=== PATIENT | female | born 1975 | race Caucasian/White ===

== ENCOUNTER 2020-06-23 14:01 | Outpatient (CLI) | payer BC, SELFPAY ==
--- NOTE | ~2020-06-23 | DEXA_ITS ---
Bone Density Report Name: Christiane Landis Age: 45 Sex: Female Ethnicity: White Date of : 1975 Indication: postmenopausal; cancer; hysterectomy; Referring Provider: Issa Baird Study: Bone densitometry was performed. Exam Date: June 23, 2020 Accession number: [id number] Bone Density: Region BMD T-score Z-score Classification AP Spine (L1-L4) 1.039 -0.1 0.4 Normal Femoral Neck (Left) 0.752 -0.9 -0.4 Normal Total Hip (Left) 0.922 -0.2 0.1 Normal Total Hip Bilateral Avg 0.932 -0.1 0.2 Normal Femoral Neck (Right) 0.806 -0.4 0.0 Normal Total Hip (Right) 0.942 0.0 0.3 Normal World Health Organization criteria for BMD impression classify patients as: Normal (T-score at or above -1.0), Osteopenia (T-score between -1.0 and -2.5), or Osteoporosis (T-score at or below -2.5). 10-year Fracture Risk: FRAX not reported because: All T-scores for Spine Total, Hip Total, Femoral Neck at or above -1.0 Clinical Information Provided by Patient: Has used the following medications: Prolia (i.e. denosumab), Vitamin D, Calcium Has the following medical conditions: Cancer, Hysterectomy Patient maximum height was 66 Menopause Age: 43 No regular weight bearing exercise Onset of menses at age 12 Number of children 2 Impression: The patient has normal bone mass. Discussion: BONE DENSITY IS ABOVE THE MINIMUM DESIRABLE LEVEL AT ALL SKELETAL SITES TESTED. This patient?s bone mineral density is above the minimum desirable level (T-score -1.0 or better) at all sites measured. The patient should follow a healthful lifestyle (good nutrition with adequate calcium and vitamin D, and appropriate weight-bearing exercise). Follow-Up: Consider repeating this study in 5 years or sooner if there is some new clinical indication. Reported by: ARI on 06/23/2020 2:31:00 PM. Reviewed, dictated and finalized at location [facility]
== END 2020-06-23 14:02 | disposition home or self-care (01) ==
PROVIDERS: PCP Family Medicine; Visit Provider Internal Medicine Hematology & Oncology
DX: M81.8 Other osteoporosis without current pathological fracture (principal); T38.6X5A Adverse effect of antigonadotrophins, antiestrogens, antiandrogens, not elsewhere classified, initial encounter
CPT/HCPCS: 77080

== ENCOUNTER 2022-08-02 08:05 | Outpatient (CLI) | payer BC, SELFPAY ==
--- NOTE | ~2022-08-02 | DEXA_ITS ---
Bone Density Report Name: PHILIP PIÑA Age: 47 Sex: Female Ethnicity: White Date of : 1975 Indication: monitoring treatment; height loss; cancer; hysterectomy; postmenopausal Referring Provider: CASANDRA MELGOZA Study: Bone densitometry was performed. Exam Date: August 02, 2022 Accession number: [id number] Bone Density: Region BMD T-score Z-score Classification AP Spine(L1-L4) 0.995 -0.5 0.1 Normal Femoral Neck (Left) 0.782 -0.6 0.0 Normal Total Hip (Left) 0.932 -0.1 0.3 Normal Femoral Neck (Right) 0.813 -0.3 0.2 Normal Total Hip (Right) 0.940 0.0 0.4 Normal Total Hip Mean 0.936 -0.1 0.4 Normal World Health Organization criteria for BMD impression classify patients as: Normal (T-score at or above -1.0), Osteopenia (T-score between -1.0 and -2.5), or Osteoporosis (T-score at or below -2.5). 10-year Fracture Risk: FRAX not reported because: All T-scores for Spine Total, Hip Total, Femoral Neck at or above -1.0 Treated for osteoporosis Previous Exams: Region Exam Age BMD T-score BMD Change BMD Change Date g/cm2 vs Baseline vs Previous AP Spine (L1-L4) 08/02/2022 47 0.995 -0.5 -0.044 (-4.3%) -0.044 (-4.3%) 06/23/2020 45 1.039 -0.1 Total Hip(Left) 08/02/2022 47 0.932 -0.1 0.010 (1.1%)# 0.010 (1.1%)# 06/23/2020 45 0.922 -0.2 Total Hip(Right) 08/02/2022 47 0.940 0.0 -0.002 (-0.2%) -0.002 (-0.2%) 06/23/2020 45 0.942 0.0 *Denotes significance at 95% confidence level, LSC for AP Spine = 0.022 g/cm2, LSC for Total Hip = 0.027 g/cm2 # Denotes dissimilar scan types or analysis methods Clinical Information Provided by Patient: Is being treated for osteoporosis Has used the following medications: Prolia (i.e. denosumab), Vitamin D, Calcium Has the following medical conditions: Cancer, Hysterectomy Patient maximum height was 67 Menopause Age: 43 No regular weight bearing exercise Onset of menses at age 12 Number of children 2 Impression: The patient has normal bone mass. No significant bone loss was observed. Discussion: PATIENT UNDER TREATMENT WITH NO SIGNIFICANT BMD LOSS SINCE LAST EXAM. In an untreated patient, BMD typically declines with age. A lack of decline or gain is usually a sign that treatment is efficacious and fracture risk is reduced. It is important to ask patients whether they are taking their medications and to encourage continued and appropriate compliance with their osteoporosis ther
== END 2022-08-02 08:06 | disposition home or self-care (01) ==
PROVIDERS: PCP Family Medicine; Visit Provider Internal Medicine Hematology & Oncology
DX: M81.8 Other osteoporosis without current pathological fracture (principal); T36.8X5A Adverse effect of other systemic antibiotics, initial encounter
CPT/HCPCS: 77080

== ENCOUNTER 2023-11-05 18:22 | Emergency (ER) | payer BC, SELFPAY ==
[2023-11-05 18:29] VITALS: BP 119/75; PULSE 92; RESP 16; TEMP 36.6; O2SAT 97
--- NOTE | 2023-11-05 18:38 | ED.BACK ---
HPI - Back Pain/Injury General Chief Complaint: Back Pain/Injury Stated Complaint: Back Pain Time Seen by Provider: 11/05/23 18:22 Source: patient Mode of arrival: ambulatory Limitations: no limitations History of Present Illness HPI Narrative: 48-year-old female presents to [facility] with complaints of pain to her left mid back for the past 3 weeks. Patient reports the pain started to her right midback and she was evaluated by her primary care provider at that time. Patient reports that she was prescribed diclofenac but decided not to take the medicine and continued [id number] Motrin and apply cool compress. Patient reports that they did travel to the from 10/03-10/16 and a large amount of walking at that time. Patient denies urinary symptoms, bowel or bladder problems, numbness or tingling. Patient reports the pain is worse with movements. Patient denies fever, body aches, chills, nausea vomiting or diarrhea. Patient denies recent injury. MD elicited complaint: back pain Pertinent past history: prior back pain Onset (ago): week(s) (3) Similar Symptoms Previously: Yes Exacerbating factors: movement Relieving factors: walking Associated symptoms: denies other symptoms Treatments prior to arrival: cold therapy and NSAIDS Related Data Home Medications Medication Instructions Recorded Confirmed calcium carbonate (Calcium 600) See Rx Instructions .Route .COMPLEX 11/22/19 08/30/23 cholecalciferol (vit D3) 137.5 mcg See Rx Instructions .Route .COMPLEX 11/22/19 08/30/23 (5,500 unit)-vit K2 200 mcg tablet Allergies Allergy/AdvReac Type Severity Reaction Status Date / Time No Known Allergies Allergy Mild Verified 08/30/23 11:22 Review of Systems Constitutional: Constitutional: Denies chills, Denies fatigue, Denies fever(s) and Denies weakness ENT: Denies dizziness, Denies epistaxis and Denies nasal congestion Cardiovascular: Cardiovascular: Denies chest pain Respiratory: Respiratory: Denies cough, Denies dyspnea and Denies wheezing Gastrointestinal: Gastrointestinal: Denies diarrhea, Denies nausea and Denies vomiting Musculoskeletal: Musculoskeletal: Denies arthralgias, Denies joint swelling and Denies muscle cramps Comments: Left midback pain PMFSH Surgical History Surgical History History of bilateral mastectomy May 2013 History of breast reconstruction August 2014. Revisions February 2015, February 2017 and February 2018. History of hysterectomy December 2016 Social History Social History Smoking status: Never smoker Alcohol intake: current Substance use: never Substance use type: does not use Do You Feel Safe in your Home?: Yes Lack of Transportation: No Lack of Food: Never True Current Housing: I Have Housing Concerned About Future Housing: No Difficulty Paying Gas/Electric Bills: No Difficulty Paying for Meds: No Currently Unemployed: No Education: Bachelor's Degree Difficulty w/ Childcare or Family Care: No Living arrangements: with family Occupation/Education: occupation Gender identity (if verbalized by the patient): Female Sexual Orientation (if Verbalized by the Patient): Straight or Heterosexual Spiritual care concerns: No Comments At time of signature, I agree with nursing past medical, surgical, social and family history. There is no relevant family history pertinent to the presenting complaint. Exam Const: General: healthy appearing and no acute distress Nutritional Appearance: well nourished Orientation/consciousness: patient oriented x3 Limitations: no limitations HENMT: Head: normal to inspection Eyes: Conjunctivae: conjunctivae normal Neck: Neck: normal visual inspection Resp: Effort & Inspection: normal respiratory effort and not labored Auscultation: clear to auscultation bilaterally, no crackles, no rales, no r
== END 2023-11-05 18:47 | disposition home or self-care (01) ==
PROVIDERS: Emergency Provider Nurse Practitioner Family; PCP Family Medicine
DX: M54.6 Pain in thoracic spine (principal); Z90.13 Acquired absence of bilateral breasts and nipples
CPT/HCPCS: 99213; G0463

== ENCOUNTER 2023-11-24 07:35 | Outpatient (CLI) | payer BC, SELFPAY ==
--- NOTE | ~2023-11-24 | XR_ITS ---
XR chest 2V 11/24/2023 07:53 Indication: Left-sided chest and rib pain Procedure: 2 view chest Comparison: No prior studies for comparison. Findings: Large right pleural effusion. There are surgical changes in the right lung base with possib le cavitation in the right lung base. No mediastinal shift. Status post left axillary lymph node diss ection. There are changes of surgery in the left breast. Impression: 1: Large right pleural effusion. Right basilar consolidation may represent atelectasis or pneumonia w ith possible cavitation anteriorly. Recommend correlation with CT. Reviewed, dictated and finalized at location B. Impression: 1: Large right pleural effusion. Right basilar consolidation may represent atel ectasis or pneumonia with possible cavitation anteriorly. Recommend correlation with CT.
--- NOTE | ~2023-11-24 | XR_ITS ---
XR ribs LT 2V Ordering provider: Jhony Robledo MD History: . R07.81 - Pleurodynia . Comparison: None. FINDINGS: BONES: No acute left rib fracture or fracture of the visualized osseous structures. LEFT LUNG: No pneumothorax. Opacification in the right lung base with atelectasis versus pneumonia. R ight effusions also possible. SOFT TISSUES: Normal. Postoperative changes in the axilla and mediastinum. IMPRESSION: No left rib fracture. Reviewed, dictated and finalized at location A. IMPRESSION: No left rib fracture.
== END 2023-11-24 07:36 | disposition home or self-care (01) ==
PROVIDERS: PCP Family Medicine; Visit Provider Family Medicine
DX: R07.81 Pleurodynia (principal); R06.09 Other forms of dyspnea; J90 Pleural effusion, not elsewhere classified
CPT/HCPCS: 71046; 71100

== ENCOUNTER 2023-11-30 07:33 | Outpatient (CLI) | payer BC, SELFPAY ==
[2023-11-27 15:34] VITALS: BMI 26.6
--- NOTE | 2023-11-27 15:34 | PC.NURSE ---
Pre Radiology instructions Report to the outpatient zoila melton on date _[id number]_ at time _0730_ for procedure Time: _929_ YOU MAY BE MONITORED AT HOSPITAL FOR UP TO 4 HOURS AFTER YOUR PROCEDURE. A visitor will be allowed to accompany the patient into the hospital. You and your visitor will be asked to self-screen and do not enter if you have any COVID symptoms. A mask is OPTIONAL within the hospital. Patients are to have no food or drink 6 hours prior to procedure time Driving will be restricted after the procedure, you must have a person to drive you home. Labs will be drawn in preop area and once reviewed, you will be taken to radiology area for procedure. When the procedure is completed, you will be taken to outpatient where you will be monitored for several hours. You may have one visitor in this area. Other than holding anti-coagulants, patient may take other medication(s) as scheduled. Prior to your appointment date patients are instructed to hold anti-coagulants after discussing with ordering provider to stop. If unable to discontinue anti-coagulants please notify radiologist. ? No aspirin or warfarin (Coumadin) for 7 days prior to the procedure. ? No clopidogrel (Plavix), ticagrelor (Brilinta), prasugrel (Effient) or dabigatran (Pradaxa) for 5 days prior to the procedure. ? No rivaroxaban (Xarelto), apixaban (Eliquis), dipyridamole (Aggrenox or Persantine) or cilostazol (Pletal) for 2 days prior to the procedure. Medications to discontinue per physician: Date to take last dose: Please leave all valuables, including medications, at home the day of procedure. The hospital will not accept responsibility for valuables. Wear comfortable, loose fitting clothing.? Follow any additional instructions given to you from ordering provider. Telephone instructions given to __Megan___and asked if any additional questions and then verbalized understanding. Patient advised to call scheduling provider office or registration scheduling [phone] if any additional questions.
[2023-11-30] VITALS (11 sets, daily range): BP systolic 114–127; BP diastolic 65–79; PULSE 67–93; RESP 16–20; TEMP 36.2; O2SAT 97–100
--- NOTE | ~2023-11-30 | US_ITS ---
EXAMINATION: US thoracentesis DATE: 11/30/2023 10:29 INDICATION: pleural effusion TECHNIQUE: The procedure and its risks and benefits were discussed with the patient. Potential risks discussed included bleeding, infection, and pneumothorax. The patient understood the risks and agreed to proceed. The skin was prepped and draped in sterile fashion. 1% lidocaine was used for local anes thesia. Under ultrasound guidance, a 5 Fr catheter with trochar was advanced into the right pleural e ffusion. Fluid was aspirated. The catheter was removed, and a dressing was applied. There were no imm ediate complications. FINDINGS: Ultrasound images demonstrate a large right pleural effusion and the catheter within the fluid. IMPRESSION: 1. Successful ultrasound-guided thoracentesis yielding 1100 mL of yellow fluid. Reviewed, dictated and finalized at location A. IMPRESSION: 1. Successful ultrasound-guided thoracentesis yielding 1100 mL of yellow fluid .
--- NOTE | ~2023-11-30 | XR_ITS ---
[id number] Ordering provider: Onel Cummings MD History: 48 years Female with . POST RT THORA . Comparison: None. FINDINGS: MEDIASTINUM: The cardiac silhouette is not enlarged. LUNGS: No pneumothorax. Opacification the right lung base seen suggestive of atelectasis versus pneum onia with pleural effusion. Follow-up to resolution is advised. OTHER: Degenerative changes of the spine. No free air under the diaphragm. IMPRESSION: Right basal pneumonia versus atelectasis with moderate to large pleural effusion. Reviewed, dictated and finalized at location A. IMPRESSION: Right basal pneumonia versus atelectasis with moderate to large pleural effusio n.
[2023-11-30 08:49] LABS: INR 1.1; Prothrombin Time 14.1 Seconds (11.1-14.7)
[2023-11-30 08:58] LABS: Mean Platelet Volume 11.1 fl (7.4-10.4); Platelet Count Result 305 k/mm3 (150-375)
[2023-11-30 10:57] LABS: Appearance Pleural Fluid Clear (Clear); Color Pleural Fluid Yellow (Colorless); Lymphocytes Pleural Fluid 57 %; Neutrophils Pleural Fluid 1 % (0-25); Nucleated Cell Pleural Fluid 990 /uL (0-1000); Pleural fluid source Pleural fluid
[2023-11-30 10:59] LABS: Macrophages Pleural Fluid 28 %; Monocytes Pleural Fluid 13 %; Other Cells Pleural Fluid 1 %
--- NOTE | 2023-11-30 12:30 | SUR.PHASEII ---
This RN contacted Dr. Cummings at 1215 and told him that patient vitals are stable with no pain or shortness of breath. Per Dr. Cummings okay to d/c patient at this time.
[2023-12-01 09:29] LABS: RBC Pleural Fluid < 2000 /uL (0-10000)
[2023-12-08 05:52] LABS: Glucose Pleural Fluid 91 mg/dL; LDH Pleural Fluid 411 U/L; Total Protein Pleural Fluid 4.8 g/dL
== END 2023-11-30 12:29 | disposition home or self-care (01) ==
PROVIDERS: PCP Family Medicine; Visit Provider Radiology Diagnostic Radiology
DX: J90 Pleural effusion, not elsewhere classified (principal)
CPT/HCPCS: 32555; 36415; 82945; 83615; 83986; 84157; 85049; 85610; 87070; 87075; 87205; 88108; 88305; 89051

== ENCOUNTER 2023-12-08 16:35 | Outpatient (CLI) | payer BC, SELFPAY ==
--- NOTE | ~2023-12-08 | XR_ITS ---
EXAMINATION: XR chest 2V DATE: 12/08/2023 16:44 INDICATION: Pleural effusion TECHNIQUE: PA and lateral views of the chest were obtained. COMPARISON: Chest radiograph dated 11/30/2023 FINDINGS: Increasing now moderate-sized right pleural effusion. No change in the remaining airspace opacities i n the right mid and lower lung which could represent associated atelectasis and/or pneumonia. Left franny ng remains clear. No pulmonary edema, pneumothorax or left-sided pleural effusion. Heart size is norm al. Postoperative with multiple surgical clips at the anterior chest and at the left axilla. IMPRESSION: 1. Increasing unilateral moderate sized right pleural effusion with associated atelectasis. Underlyin g pneumonia or malignancy is not excludable. Reviewed, dictated and finalized at location A. IMPRESSION: 1. Increasing unilateral moderate sized right pleural effusion with associated atelectasis. Underlying pneumonia or malignancy is not excludable.
== END 2023-12-08 16:36 ==
PROVIDERS: PCP Family Medicine; Visit Provider Family Medicine
DX: J90 Pleural effusion, not elsewhere classified (principal)
CPT/HCPCS: 71046

== ENCOUNTER 2023-12-12 08:43 | Outpatient (CLI) | payer BC, SELFPAY ==
--- NOTE | 2023-12-12 08:54 | ECHO_ITS ---
Patient Info Name: Christiane Landis Age: 48 years : 1975 Gender: Female Ht: 66 in Wt: 160 lbs BSA: 1.85 m2 HR: 80 bpm BP: 133 / 84 mmHg Heart Rhythm: Sinus Rhythm Technical Quality: Good Exam Date: 12/12/2023 9:19 AM Exam Location: Echo Lab Patient Status: Outpatient Admit Date: 12/12/2023 Staff Ordering Physician: Jhony Robledo MD Pharmaceutical Laboratory Technician: Ursula Leger RDCS Attending Provider: Jhony Robledo MD Referring Physician: Venkat ALCANTARA; Exam Type: CA echo doppler color flow Study Info Indications - other forms of dyspnea Complete two-dimensional, color flow and Doppler transthoracic echocardiogram is performed. Summary 1. Complete two-dimensional, color flow and Doppler transthoracic echocardiogram is performed. 2. Left ventricular chamber dimension is normal. 3. Left ventricular systolic function is normal, estimated at 60-65%. 4. The left ventricular diastolic function is normal. 5. E/e' 6 is not elevated. 6. There is trace mitral valve regurgitation. 7. No pulmonary hypertension, estimated pulmonary arterial systolic pressure is 15 mmHg. 8. There is trace pulmonic regurgitation. Left Ventricle E/e' 6 is not elevated. Left ventricular chamber dimension is normal. Left ventricular systolic function is normal, estimated at 60-65%. The left ventricular diastolic function is normal. Right Ventricle Right ventricular systolic function is normal and with normal TAPSE 2.4 cm. Right ventricular chamber dimension is normal. Left Atria Left atrial chamber dimension is normal. Right Atria Right atrial chamber dimension is normal. Aortic Valve The aortic valve is trileaflet. There is no aortic valve stenosis. There is no aortic valve regurgitation. Pulmonic Valve There is trace pulmonic regurgitation. Mitral Valve There is no mitral valve stenosis. There is trace mitral valve regurgitation. Tricuspid Valve There is no tricuspid valve regurgitation. No pulmonary hypertension, estimated pulmonary arterial systolic pressure is 15 mmHg. Pericardium/Pleural There is no pericardial effusion. Inferior Vena Cava Normal inferior vena cava with >50% collapse upon inspiration consistent with normal right atrial pressure, 5 mmHg. Aorta The aortic root size at the sinus of Valsalva is normal. Left Ventricular Outflow Tract Name Value Normal LVOT 2D LVOT Diameter 1.9 cm LVOT Doppler LVOT Peak Gradient 3 mmHg LVOT Mean Gradient 1 mmHg LVOT VTI 20 cm LVOT VTI/AV VTI Ratio 0.8 LVOT Stroke Volume 55 ml LVOT CO 3.5 l/min LVOT CI 1.9 l/min/m2 Pulmonic Valve Name Value Normal PV Doppler PV Peak Gradient 6 mmHg Mitral Valve Name
== END 2023-12-12 08:44 | disposition home or self-care (01) ==
LOC: ANHCARD 08:45
PROVIDERS: PCP Family Medicine; Visit Provider Family Medicine
DX: R06.09 Other forms of dyspnea (principal)
CPT/HCPCS: 93306

== ENCOUNTER → 2023-12-12 10:44 | Outpatient (REF) | payer BC, SELFPAY | LOC: ANHLAB 10:44 | PROVIDERS: PCP Family Medicine; Visit Provider Family Medicine | DX: J90 Pleural effusion, not elsewhere classified (principal); Z85.3 Personal history of malignant neoplasm of breast | CPT/HCPCS: 88108; 88305; 88342 ==

== ENCOUNTER 2023-12-13 09:50 | Outpatient (CLI) | payer BC, SELFPAY ==
[2023-12-12 08:15] VITALS: BMI 25.8
--- NOTE | 2023-12-12 08:17 | PC.NURSE ---
Addendum entered by Brad Lyn RN 12/12/23 08:20: Date of proceedure is 12-13-2023. Original Note: Pre Radiology instructions Report to the Imaging department on date _[id number]_ at time _1000_ for procedure Time: 1030_ YOU MAY BE MONITORED AT HOSPITAL FOR UP TO 4 HOURS AFTER YOUR PROCEDURE. A visitor will be allowed to accompany the patient into the hospital. You and your visitor will be asked to self-screen and do not enter if you have any COVID symptoms. A mask is OPTIONAL within the hospital. Patients are to have no food or drink 6 hours prior to procedure time Driving will be restricted after the procedure, you must have a person to drive you home. When the procedure is completed, you will be taken to outpatient where you will be monitored for several hours. You may have one visitor in this area. Other than holding anti-coagulants, patient may take other medication(s) as scheduled. Prior to your appointment date patients are instructed to hold anti-coagulants after discussing with ordering provider to stop. If unable to discontinue anti-coagulants please notify radiologist. ? No aspirin or warfarin (Coumadin) for 7 days prior to the procedure. ? No clopidogrel (Plavix), ticagrelor (Brilinta), prasugrel (Effient) or dabigatran (Pradaxa) for 5 days prior to the procedure. ? No rivaroxaban (Xarelto), apixaban (Eliquis), dipyridamole (Aggrenox or Persantine) or cilostazol (Pletal) for 2 days prior to the procedure. Medications to discontinue per physician: Date to take last dose: Please leave all valuables, including medications, at home the day of procedure. The hospital will not accept responsibility for valuables. Wear comfortable, loose fitting clothing.? Follow any additional instructions given to you from ordering provider. Telephone instructions given to _Waynen__and asked if any additional questions and then verbalized understanding. Patient advised to call scheduling provider office or registration scheduling [phone] if any additional questions.
[2023-12-13] VITALS (7 sets, daily range): BP systolic 114–129; BP diastolic 61–78; PULSE 76–84; RESP 16–20; O2SAT 98–100
--- NOTE | ~2023-12-13 | US_ITS ---
EXAMINATION: US thoracentesis DATE: 12/13/2023 11:19 INDICATION: pleural effusion TECHNIQUE: The procedure and its risks, benefits, and alternatives were discussed with the patient. P otential risks discussed included bleeding, infection, and pneumothorax. The patient understood the r isks and agreed to proceed. The skin was prepped and draped in sterile fashion. 1% lidocaine was used for local anesthesia. Under ultrasound guidance, a 5 Fr catheter with trochar was advanced into the right pleural effusion. Fluid was aspirated. The catheter was removed, and a dressing was applied. Th ere were no immediate complications. FINDINGS: Ultrasound images demonstrate a right pleural effusion and the catheter within the fluid. IMPRESSION: 1. Successful ultrasound-guided thoracentesis yielding 1000 mL of jennifer-colored fluid. Reviewed, dictated and finalized at location A. IMPRESSION: 1. Successful ultrasound-guided thoracentesis yielding 1000 mL of jennifer-colore d fluid.
--- NOTE | ~2023-12-13 | CT_ITS ---
EXAMINATION:CT diagnostic chest w con DATE: 12/13/2023 11:22 INDICATION: Pleural effusion, not elsewhere classified. TECHNIQUE: Computed tomography (CT) of the chest was performed with 75 mL Omnipaque 350 intravenous c ontrast. Automated exposure control and iterative reconstruction technique were employed. The dose-le ngth product (DLP) was 136.20 mGy-cm. COMPARISON: None. FINDINGS: There is mild scarring at left lung apex. There is mild radiation fibrosis in anterior left lung. There is a small loculated right pleural effusion. There is nodular pleural thickening in righ t hemithorax. There is mild atelectasis in right lung. The heart size is normal. No pericardial effus ion. There are no pathologically enlarged lymph nodes. There is a 14 mm cyst in the liver. There is r etrocrural lymphadenopathy. There are surgical clips in the breasts and left axilla that may be maste ctomies with reconstructions. There is a healing pathologic fracture of left 11th rib. There is a lyt ic lesion of right seventh rib. There are lytic lesions in multiple levels of the spine, worst at T9 where there is epidural involvement and moderate central canal stenosis. IMPRESSION: 1. Small right pleural effusion with nodular pleural thickening, consistent with metastatic disease. 2. Bone lesions and retrocrural lymphadenopathy, consistent with metastatic disease. 3. Healing pathologic fracture of left 11th rib. Reviewed, dictated and finalized at location A. IMPRESSION: 1. Small right pleural effusion with nodular pleural thickening, consistent wit h metastatic disease. 2. Bone lesions and retrocrural lymphadenopathy, consistent with metastatic dis ease. 3. Healing pathologic fracture of left 11th rib.
== END 2023-12-13 13:18 | disposition home or self-care (01) ==
PROVIDERS: Radiology Diagnostic Radiology; PCP Family Medicine; Visit Provider Family Medicine
DX: J90 Pleural effusion, not elsewhere classified (principal); Z85.3 Personal history of malignant neoplasm of breast
CPT/HCPCS: 32555; 71260; Q9967

== ENCOUNTER 2023-12-14 15:32 | Outpatient (CLI) | payer BC, SELFPAY ==
[2023-12-14 15:46] LABS: Basophils Absolute Auto 0.1 K/mm3 (0.0-0.1); Basophils Percent Auto 1.2 % (0.2-1.2); Eosinophils Absolute Auto 0.1 K/mm3 (0-0.3); Eosinophils Percent Auto 0.9 % (0-4.4); Hematocrit 37.7 % (37.0-47.0); Hemoglobin 11.6 g/dL (12.0-15.0); Immature Granulocyte Absolute 0.01 K/mm3 (0.00-0.031); Immature Granulocyte Percent A 0.2 % (0-0.5); Lymphocytes Absolute Auto 1.17 K/mm3 (0.9-3.2); Lymphocytes Percent Auto 18.1 % (18.3-44.2); Mean Corpuscular HGB Conc 30.8 g/dl (32-36); Mean Corpuscular Hemoglobin 25.2 pg (26-34); Mean Platelet Volume 11.4 fl (7.4-10.4); Monocytes Absolute Auto 0.5 K/mm3 (0.1-0.6); Monocytes Percent Auto 8.4 % (2.6-8.5); Neutrophils Absolute Auto 4.6 K/mm3 (1.3-6.7); Neutrophils Percent Auto 71.2 % (45.5-73.1); Platelet Count Result 280 k/mm3 (150-375); Red Cell Distribution Width 14.3 % (11.5-14.5); White Blood Count 6.5 K/mm3 (4.5-10.0)
[2023-12-14 16:31] LABS: Alanine Aminotransferase 18 U/L (6-35); Albumin Level 4.4 g/dL (3.5-5.1); Alkaline Phosphatase 119 U/L (38-126); Anion Gap 11 mmol/L (4-12); Aspartate Amino Transferase 35 U/L (14-36); Bilirubin,Total 0.5 mg/dL (0.2-1.3); Blood Urea Nitrogen 16 mg/dL (7-17); Calcium 9.7 mg/dL (8.4-10.2); Carbon Dioxide 25 mmol/L (22-30); Chloride 102 mmol/L (98-107); Estimated Glomerular Filt Rate 59; Glucose 129 mg/dL (65-110); Potassium 4.7 mmol/L (3.4-5.0); Sodium 138 mmol/L (137-145)
[2023-12-15 13:57] LABS: CA 15-3 289 U/mL (<32)
== END 2023-12-14 15:33 | disposition home or self-care (01) ==
LOC: ANHLAB 15:33
PROVIDERS: PCP Family Medicine; Visit Provider Internal Medicine Hematology & Oncology
DX: Z85.3 Personal history of malignant neoplasm of breast (principal)
CPT/HCPCS: 36415; 80053; 85025; 86300

== ENCOUNTER 2023-12-19 11:05 | Outpatient (CLI) | payer BC, SELFPAY ==
[2023-12-19 11:17] LABS: Kit Draw Collected
== END 2023-12-19 11:06 | disposition home or self-care (01) ==
LOC: ANHLAB 11:06
PROVIDERS: PCP Family Medicine; Visit Provider Internal Medicine Hematology & Oncology
DX: C50.919 Malignant neoplasm of unspecified site of unspecified female breast (principal); Z17.0 Estrogen receptor positive status [ER+]
CPT/HCPCS: 36415

== ENCOUNTER 2023-12-20 08:41 | Outpatient (CLI) | payer BC, SELFPAY ==
--- NOTE | ~2023-12-20 | NM_ITS ---
EXAMINATION: NM bone scan whole body DATE: 12/20/2023 13:40 INDICATION: Right breast cancer TECHNIQUE: 25 mCi Tc-99m HDP was administered intravenously. Delayed whole-body scintigrams were obt ained. COMPARISON: Chest CT dated 12/13/2023 FINDINGS: There is increased uptake associated with lytic lesions and associated pathologic fractures at the an terior right fifth rib and the T9 vertebral body and without pathologic fracture at the posterolatera l right 11th rib, the right acromial process and at the spinous process of L1 consistent with metasta tic disease. Additional foci of abnormal uptake suspicious for metastatic disease which is not includ ed on the prior imaging at the right humeral diaphysis, intertrochanteric left femur, at L3 and at ginette th the left and right innominate bones of the pelvis. IMPRESSION: 1. Multiple foci of abnormal uptake consistent with scattered osseous metastatic disease. Reviewed, dictated and finalized at location A. IMPRESSION: 1. Multiple foci of abnormal uptake consistent with scattered osseous metastati c disease.
== END 2023-12-20 08:42 | disposition home or self-care (01) ==
PROVIDERS: PCP Family Medicine; Visit Provider Internal Medicine Hematology & Oncology
DX: C50.919 Malignant neoplasm of unspecified site of unspecified female breast (principal); Z17.0 Estrogen receptor positive status [ER+]
CPT/HCPCS: 78306; A9503

== ENCOUNTER 2023-12-21 09:20 | Outpatient (CLI) | payer BC, SELFPAY ==
--- NOTE | ~2023-12-21 | MR_ITS ---
MR brain/brain stem wo/w con Ordering provider: Issa Baird MD History: 48 years Female with . MAL POPPY OF BREAST IN FEMALE . Comparison: None. Technique: MRI brain was performed with and without contrast. 17 mL of MultiHance was given IV. FINDINGS: BONES: Normal. CRANIOCERVICAL JUNCTION: normal. PITUITARY: Normal. MAJOR INTRACRANIAL VESSELS: Normal flow void. OPTIC NERVES AND CRANIAL NERVES VII AND VIII COMPLEXES: Grossly normal. BRAIN PARENCHYMA AND CSF SPACES: No visible white matter disease. The brainstem and cerebellum are n ormal. No acute or chronic intracranial hemorrhage. No extra axial fluid collections. Diffusion weigh cesar and ADC mapping images reveal no recent ischemia. No midline shift or mass effect. No abnormal co ntrast enhancement. PARANASAL SINUSES: Normal. MASTOIDS: Normal SUPERFICIAL/SURROUNDING SOFT TISSUES: Normal. IMPRESSION: 1. No definite abnormality. No metastatic lesions 2. No abnormal enhancement. Reviewed, dictated and finalized at location A.
--- NOTE | ~2023-12-21 | PE_ITS ---
EXAMINATION: PET skull to mid thigh DATE: 12/21/2023 11:12 INDICATION: Breast cancer TECHNIQUE: Blood glucose level was 91 mg/dL. 9.925 mCi of 18-fluorodeoxyglucose (18-FDG) was administ ered i.v. Low dose computed tomography (CT) images were acquired from the base of the brain to the pr oximal thighs for attenuation correction and anatomic localization. Positron emission tomography (PET ) images were acquired in the same distribution beginning 54 minutes after injection. Images includin g fused PET/CT images were reconstructed in axial, coronal, and sagittal planes. Automated exposure c ontrol technique was employed. The dose-length product was 624.16mGy-cm. COMPARISON: Chest CT dated 12/13/2023 FINDINGS: Head/neck: There is symmetric increased activity in the oral cavity, palatine and lingual tonsils, laryngeal mus cles and ocular muscles without CT correlate, likely physiologic. No pathologically enlarged cervical lymphadenopathy or suspicious soft tissue foci of increased FDG uptake in the visualized head or nec k. Chest: Volume loss in the right lung with likely complex loculated small to moderate-sized right pleural eff usion. There is FDG avid nodular thickening of both the parietal and visceral pleura in the right hem ithorax including along the periphery of the right lung and along the fissures consistent with intrap leural metastatic disease. Could not exclude FDG avid right hilar lymphadenopathy although this more likely represent additional pleural-based disease. No other abnormally enlarged or FDG avid thoracic lymphadenopathy. There are no definitive non pleural-based pulmonary nodules to suggest intrapulmonar y metastatic disease. Left lung is clear with no pleural effusion. Heart size is normal. No pericardi al effusion. Thoracic aorta is normal in caliber. Abdomen/pelvis/proximal thighs: Physiologic renal accumulation and excretion of FDG activity in the kidneys, bladder and along portio ns of ureters. Normal degree and heterogenous pattern of increased uptake throughout the liver withou t radiologic correlate or dominant FDG avid lesion. The gallbladder, pancreas, spleen and bilateral a drenal glands are normal. Mild uptake scattered throughout the bowels without radiologic correlate, a lso likely physiologic. There is 1.5 cm FDG avid lymph node situated between the aorta and the right conrad of the diaphragm. No other abnormal foci of increased FDG uptake or other pathologically enlarge d lymphadenopathy in the abdomen, pelvis or proximal thighs. Musculoskeletal: There are numerous FDG avid bone lesions which are predominantly lytic on CT imaging scattered throug hout the axial and appendicular skeleton consistent with osseous metastatic disease. These include th e lesions identified on the recent prior bone scan as well as several additional smaller lesions. One of the most prominent occupies the majority of the T9 vertebral body. IMPRESSION: 1. Extensive osseous and right-sided pleural based metastatic disease. Equivocal for additional pleur al-based metastatic disease versus metastatic lymphadenopathy at the right hilum along the right late ral margin of the mediastinum. There is however definitive FDG avid right paraesophageal lymph node p osterior to the conrad of the diaphragm. Reviewed, dictated and finalized at location A. IMPRESSION: 1. Extensive osseous and right-sided pleural based metastatic disease. Equivoca l for additional pleural-based metastatic disease versus metastatic lymphadenop athy at the right hilum along the right lateral margin of the mediastinum. Ther e is however definitive FDG avid right paraesophageal lymph node posterior to t he conrad of the diaphragm.
[2023-12-21 10:04] LABS: Glucose Point of Care 91 mg/dl (65-105)
== END 2023-12-21 09:21 | disposition home or self-care (01) ==
LOC: ANHIMG 09:22
PROVIDERS: PCP Family Medicine; Visit Provider Internal Medicine Hematology & Oncology
DX: C50.919 Malignant neoplasm of unspecified site of unspecified female breast (principal); Z17.0 Estrogen receptor positive status [ER+]; R91.8 Other nonspecific abnormal finding of lung field
CPT/HCPCS: 70553; 78815; A9552; A9577

== ENCOUNTER 2024-01-16 08:03 | Outpatient (CLI) | payer BC, SELFPAY ==
[2024-01-16 08:58] LABS: Partial Thromboplastin Time 28.4 Seconds (22.3-36.8)
== END 2024-01-16 08:04 | disposition home or self-care (01) ==
LOC: ANHSURGERY 08:09
PROVIDERS: PCP Family Medicine; Visit Provider Surgery
DX: C79.51 Secondary malignant neoplasm of bone (principal); Z01.818 Encounter for other preprocedural examination
CPT/HCPCS: 36415; 85730

== ENCOUNTER 2024-01-18 02:05 | Day surgery (SDC) | payer BC, SELFPAY ==
[2024-01-12 11:17] VITALS: BMI 24.3
--- NOTE | 2024-01-12 11:18 | PC.NURSE ---
Report to the Outpatient Waiting Room, entrance under the green pavilion located off [facility], at time _1100_ on date _[phone]_. Planned Procedure Time: _1pm_.? Time changes happen often and if your time is changed the preop area will call you the afternoon before. - You and your visitor will be asked to self-screen and do not enter if you have any COVID symptoms. Please call surgeon if you need to reschedule. - A mask is optional within the hospital at this time. Patients may have clear liquids (water, carbonated beverages, clear teas, apple juice) until 3 hours prior to surgery with a maximum of 20 ounces. - No food from midnight until time of surgery and no smoking Take only the following medications with a SIP of water on the morning of surgery: ___None DO NOT STOP ANY OF YOUR OTHER PRESCRIPTION MEDICATIONS PRIOR TO SURGERY EXCEPT THE FOLLOWING Medications to discontinue per physician ___Calcium and Vitamin d3 Date to take last cmif___[id number] Greene's office if need to hold Meloxicam. Please no make-up, nail [place] citizen, hairspray, perfume, deodorant, or body powder the day of surgery.? No jewelry (including any body piercings) or valuables the day of surgery, leave them at home.? Please take a shower or bath the night before, or the morning of, surgery with an antibacterial soap.? Wear comfortable, loose fitting clothing.? - Jewelry must be removed prior to entering the operating room.? Rings and piercings that are not removed may be cut off. - The hospital will not accept responsibility for valuables.? - Please leave all valuables, including medications, at home the day of surgery. If you are going home after surgery, a licensed regional flatbed truck driver must drive you home.? - NO public transportation without another adult if you receive anesthesia. - We recommend that an adult stay with you for 24 hours following discharge. - We also recommend that you do not drive, make important decision, drink alcoholic beverages, or take any drugs that were not prescribed by your health care provider for at least 24 hours after your discharge time. Follow any additional instructions given to you from your surgeon. Telephone instructions given to __Megan___and asked if any additional questions and then verbalized understanding. Patient advised to call surgeon office or pre surgery nurse liaison [phone] if any additional questions.
--- NOTE | 2024-01-17 18:07 | PM.SD2 ---
Same Day Admit/Disch: HPI History of Present Illness Chief complaint: Metastatic breast cancer, inadequate venous access Narrative: Christiane Landis is a 48 year old female who had node positive and HER2 positive breast cancer diagnosed in 2013. She underwent bilateral mastectomy as well as chemotherapy and Herceptin therapy. She also had bilateral breast reconstruction. Recently she noticed some pain in her chest and a CT scan showed a right pleural effusion with a fractured rib. There was also evidence of metastatic bone lesions. In December the pleural effusion was sent for cytology and showed metastatic breast cancer. Patient has been requested to have a Port-A-Cath placed in anticipation of chemotherapy. [facility] Surgical History Surgical History History of bilateral mastectomy May 2013 History of breast reconstruction August 2014. Revisions February 2015, February 2017 and February 2018. History of hysterectomy December 2016 Social History Social History Smoking status: Never smoker Alcohol intake: current Substance use: never Substance use type: does not use Do You Feel Safe in your Home?: Yes Lack of Transportation: No Lack of Food: Never True Current Housing: I Have Housing Concerned About Future Housing: No Difficulty Paying Gas/Electric Bills: No Difficulty Paying for Meds: No Currently Unemployed: No Education: Bachelor's Degree Difficulty w/ Childcare or Family Care: No Living arrangements: with family Occupation/Education: occupation Gender identity (if verbalized by the patient): Female Sexual Orientation (if Verbalized by the Patient): Straight or Heterosexual Spiritual care concerns: No Same Day Admit/Disch: Med Pre-admit Medications Home Medications Medication Instructions Recorded Confirmed Type calcium carbonate (Calcium 600) See Rx Instructions .Route .COMPLEX 11/22/19 01/16/24 History cholecalciferol (vit D3) 137.5 mcg See Rx Instructions .Route .COMPLEX 11/22/19 01/16/24 History (5,500 unit)-vit K2 200 mcg tablet meloxicam 15 mg tablet 15 mg PO DAILY #30 tabs 12/21/23 01/16/24 Rx ibuprofen 600 mg tablet 600 mg PO Q6H PRN pain #14 tabs 01/18/24 Rx oxycodone-acetaminophen 5 mg-325 0.5 - 1 tablet PO Q6H PRN pain #7 01/18/24 Rx mg tablet tabs Review of Systems Review of Systems All systems reviewed & are unremarkable except as noted in HPI and below (HPI and those items noted below) Constitutional Constitutional: Denies chills and Denies fever(s) Cardiovascular Cardiovascular: Reports chest pain (Fractured rib), Denies diaphoresis, Denies dyspnea and Denies paroxysmal nocturnal dyspnea Respiratory Respiratory: Reports as per HPI, Denies chest congestion, Denies cough and Denies dyspnea Musculoskeletal Musculoskeletal: Reports as per HPI Integumentary/Breasts Skin/Breast: Denies lesions and Denies rash Exam Const: General: comfortable, no acute distress, alert and awake HENMT: Head: normocephalic and atraumatic Mouth: Yes Normal oral and palatal mucosa present Eyes: Conjunctivae: conjunctivae normal Pupils: Equal, round and reactive pupils present EOM: EOMs intact bilaterally Neck: Neck: normal visual inspection, no lymphadenopathy and nontender Chest: Chest palpation & inspection: normal inspection of the chest, no crepitus, no tenderness and No rash Resp: Effort & Inspection: normal respiratory effort Auscultation: clear to auscultation bilaterally Cardio: Rate: regular rate Rhythm: regular rhythm Heart sounds: no gallops, no murmurs and no rubs GI: Inspection: non-distended GI Palp: Yes Soft to palpation, No Tenderness to palpation present (GI), No Hepatomegaly present and No Splenomegaly present Skin: Lesions: no lesions Rashes: no rashes Neuro: General: no focal motor deficits and CN's II-XI intact bilaterally Cranial
--- NOTE | ~2024-01-18 | XR_ITS ---
EXAMINATION: XR fl guide central line place DATE: 01/18/2024 14:04 INDICATION: Port catheter insertion TECHNIQUE: Single fluoroscopic images of the right upper chest was obtained during procedure performe d by Dr. Greene. Radiologist was not present for the imaging or procedure. The amount of fluoroscopy ti me used during this procedure was 0.7 minutes. COMPARISON: CT dated 12/13/2023 FINDINGS: Right internal jugular central venous port catheter with distal tip extending to at least the distal superior vena cava and beyond the inferior margin of the field of imaging. There are several surgical clips projecting over the right mid lung. Masslike airspace opacity in the right midlung zone concer aaliyah for metastatic disease. IMPRESSION: 1. Fluoroscopy utilized during placement of a right internal jugular central venous port catheter. Se e procedure note for further detail. 2. Opacities in the right midlung zone corresponding to multiple pleural-based mass on prior CT consi stent with metastatic disease. Reviewed, dictated and finalized at location B. IMPRESSION: 1. Fluoroscopy utilized during placement of a right internal jugular central ve nous port catheter. See procedure note for further detail. 2. Opacities in the right midlung zone corresponding to multiple pleural-based mass on prior CT consistent with metastatic disease.
--- NOTE | ~2024-01-18 | XR_ITS ---
EXAMINATION: XR chest port-a-cath/central DATE: 01/18/2024 14:28 INDICATION: Port placement. TECHNIQUE: A single frontal view of the chest was obtained. COMPARISON: Chest 2 views 12/08/2023 FINDINGS: There is a moderate-sized loculated right pleural effusion. There are airspace opacities in right lung, likely atelectasis. No pneumothorax. The heart size is normal. There is a right internal jugular port with tip at superior cavoatrial junction. There are surgical clips in the chest wall. IMPRESSION: 1. Poor tip at superior cavoatrial junction. 2. Moderate-sized loculated right pleural effusion again seen, likely a malignant effusion. Reviewed, dictated and finalized at location A. IMPRESSION: 1. Poor tip at superior cavoatrial junction. 2. Moderate-sized loculated right pleural effusion again seen, likely a maligna nt effusion.
[2024-01-18 11:50] VITALS: BP 121/58; PULSE 92; RESP 18; TEMP 36.9; O2SAT 98
[2024-01-18] MEDS: KETOROLAC 15 MG/ML VIAL (*BKC) IV PUSH (11:54)
--- NOTE | 2024-01-18 12:05 | WPDHPUPDATE1 ---
History and Physical Update Update Date/Time: 01/18/24 12:05 History and Physical has been reviewed, including an updated exam of the patient. There are NO changes in the patient's condition. Risks, benefits, and alternatives have been discussed and questions answered. Patient agrees to proceed with procedure.
--- NOTE | 2024-01-18 12:53 | WPDANESEPPF ---
Anes - Initial Pre Proc Eval Procedure: Operation Date: 01/18/24 13:00 Proposed Procedures p Insertion Soni Cath - Andreas Greene MD Date/Time: 01/18/24 12:53 Surgeon: Andreas Greene MD Pre Op Diagnosis: Metastatic breast cancer, inadequate venous access Patient Data Age: 48 Gender: F Height: 1.69 m Weight: 69.4 kg Last Vital Signs Temp 36.9 C 01/18/24 11:50 Pulse 92 01/18/24 11:50 Resp 18 01/18/24 11:50 BP 121/58 L 01/18/24 11:50 Pulse Ox 98 01/18/24 11:50 O2 Del Method Room Air 01/18/24 11:50 Allergies Allergy/AdvReac Type Severity Reaction Status Date / Time No Known Allergies Allergy Mild Verified 01/18/24 11:48 Home Medications Medication Instructions Recorded Confirmed Type calcium carbonate (Calcium 600) See Rx Instructions .Route .COMPLEX 11/22/19 01/16/24 History cholecalciferol (vit D3) 137.5 mcg See Rx Instructions .Route .COMPLEX 11/22/19 01/16/24 History (5,500 unit)-vit K2 200 mcg tablet meloxicam 15 mg tablet 15 mg PO DAILY #30 tabs 12/21/23 01/16/24 Rx Patient hx anesthesia problems: none Family hx anesthesia problems: post op nausea/vomiting Results Review: All pre-operative results and documents have been reviewed as part of the pre-operative evaluation. [facility] Surgical History Surgical History History of bilateral mastectomy May 2013 History of breast reconstruction August 2014. Revisions February 2015, February 2017 and February 2018. History of hysterectomy December 2016 Social History Social History Smoking status: Never smoker Alcohol intake: current Substance use: never Substance use type: does not use Do You Feel Safe in your Home?: Yes Lack of Transportation: No Lack of Food: Never True Current Housing: I Have Housing Concerned About Future Housing: No Difficulty Paying Gas/Electric Bills: No Difficulty Paying for Meds: No Currently Unemployed: No Education: Bachelor's Degree Difficulty w/ Childcare or Family Care: No Living arrangements: with family Occupation/Education: occupation Gender identity (if verbalized by the patient): Female Sexual Orientation (if Verbalized by the Patient): Straight or Heterosexual Spiritual care concerns: No Anes - Eval Final PreProcedure Day of Procedure 01/18/24 12:53 Patient weight: normal Heart: regular rate and rhythm Lungs: clear to auscultation Airway: Mallampati scale class II Neurological: alert and oriented Last oral intake: >/= 8 hours ASA classification: IV Emergent: no Anesthetic plan: proceed Anesthesia type and monitoring: general GIVS and standard monitoring Results Review: All pre-operative results and documents have been reviewed as part of the pre-operative evaluation. Informed Consent: The patient's anesthetic plan and its attendant risks and benefits were discussed with the patient/family/POA. Questions were solicited and answers provided to the satisfaction of the patient/family/POA.
[2024-01-18] MEDS: ceFAZolin 2 GM/D5W 50 ML 2 GM/50 ML BAG IVPB (13:15)
[2024-01-18] MEDS: HEPARIN SODIUM 1,000 UNITS/ML VIAL 1000 UNITS IV PUSH (13:15)
[2024-01-18] MEDS: BUPIVACAINE/EPINEPHRINE 0.5% 10 ML VIAL 20 ML INFILTRATE (13:15)
[2024-01-18 14:17] VITALS: BP 94/52; PULSE 92; RESP 20; O2SAT 95
[2024-01-18] MEDS: LACTATED RINGERS 1,000 ML 30 ML IV CONT (14:17)
--- NOTE | 2024-01-18 14:21 | W.PM.PROC2 ---
Procedure Note - Detailed Date of Procedure 01/18/24 Pre-op Diagnosis Metastatic breast cancer, inadequate venous access Post-op Diagnosis Same Procedure Performed Placement right internal jugular Port-A-Cath using ultrasound and under fluoroscopy Surgeon Andreas Greene MD Health And Physical Education Professor Evette Blackmon EXTERIOR DESIGNER Anesthesia General (G IV S) and Local Indications Patient has developed recurrent and metastatic breast cancer. She is in need of chemotherapy and I was requested to place a Port-A-Cath for this purpose. Findings Port-A-Cath tip at the cavoatrial junction Description of Procedure Patient was taken to surgery and anesthesia was introduced. The right neck and right upper chest were prepped and draped. An ellipse was drawn around the previous Port-A-Cath scar. The proposed incision was then infiltrated with local anesthetic. The scar was then excised and discarded. Dissection was carried down through the pectoralis major fascia. A subfascial pocket was created using blunt and sharp dissection. Additional local was infiltrated into the pocket and the subcutaneous. I then tried about 3 times to cannulate the right internal jugular vein. This was not successful. I then used ultrasound and cannulated the right internal jugular vein low in the neck. I then marked out the general path the Port-A-Cath would take. I marked 2 counter incisions in the lower neck. Local was infiltrated at each of these sites as well as the exit site of the guidewire. Counter incisions were made and incision was made at the exit of the guidewire. I then tunneled the Port-A-Cath from the subclavian pocket through each of the counter incisions and then out the incision where the wire was also exiting. I then marked using the fluoroscopy the length of Port-A-Cath that would be needed. It was cut to the appropriate length. I then passed the introducer and sheath over the guidewire and down into the superior vena cava. The introducer and guidewire were removed. The Port-A-Cath was threaded through the sheath. Fluoroscopy showed it to be in good position. The sheath was then removed. Fluoroscopy showed again the Port-A-Cath tip to be near the cavoatrial junction. I checked the Port-A-Cath catheterization and it aspirated blood and flushed easily with heparin. It was flushed with heparin finally. I then sutured the Port-A-Cath to the pectoralis major muscle with 4-0 silk suture. The incision for the reservoir was then closed with layered running 2-0 Vicryl suture. The skin was closed with running 4-0 Monocryl skin suture. Each of the counter incisions was closed with subcuticular interrupted 4-0 Vicryl suture. All the incisions were dressed with Exofin surgical adhesive. Patient was awakened and taken to outpatient surgery in good condition. Sponge needle counts were correct x2. Implants Vortex Port-A-Cath right internal jugular position Estimated Blood Loss -5 Drains No Packing No Pathology None sent Complications None Condition Stable Disposition Same day [facility] Billing Surgery - Charge Forward: Surgery Billing (Placement of right internal jugular Port-A-Cath using ultrasound and under fluoroscopy)
[2024-01-18 14:45] VITALS: BP 95/60; PULSE 87; RESP 20
[2024-01-18 15:15] VITALS: BP 102/60; PULSE 87; RESP 20
[2024-01-18 15:30] VITALS: BP 105/72; PULSE 80; RESP 20
--- NOTE | 2024-01-18 15:35 | SUR.PHASEII ---
1515 - dr. negron talking with pt. pt states that rt arm feels numb. dr. avery called as requested by dr. negron for arm assessment 1525 - dr. avery at bedside of pt and discussed pt's c/o of arm numbness.
== END 2024-01-18 15:35 | disposition home or self-care (01) ==
PROVIDERS: PCP Family Medicine; Visit Provider Surgery
PROC: (CPT 36561; principal; 2024-01-18 13:00)
DX: C79.51 Secondary malignant neoplasm of bone (principal); Z17.0 Estrogen receptor positive status [ER+]; Z85.3 Personal history of malignant neoplasm of breast; Z92.21 Personal history of antineoplastic chemotherapy
CPT/HCPCS: 36561; 77001; C1788; J0690; J1644; J1885; J2250; J2405; J2704; J3010; J7030; J7120

== ENCOUNTER 2024-03-15 13:48 | Outpatient (CLI) | payer BC, SELFPAY ==
--- NOTE | 2024-03-15 | ECHO_ITS ---
Patient Info Name: Christiane Landis Age: 49 years : 1975 Gender: Female Ht: 66 in Wt: 155 lbs BSA: 1.82 m2 HR: 73 bpm BP: 98 / 65 mmHg Heart Rhythm: Sinus Rhythm Technical Quality: Good Exam Date: 03/15/2024 2:18 PM Exam Location: Echo Lab Patient Status: Outpatient Admit Date: 03/15/2024 Staff Ordering Physician: Issa Baird MD Hoop Coiler: Stacy Villeda RDCS Attending Provider: Issa Baird MD Referring Physician: Oli BAUTISTA; Exam Type: CA echo doppler color flow Study Info Indications - malignant neoplasm breast Complete two-dimensional, color flow and Doppler transthoracic echocardiogram is performed. Strain analysis performed. Summary 1. Complete two-dimensional, color flow and Doppler transthoracic echocardiogram is performed. 2. Left ventricular chamber dimension is normal. 3. Left ventricular systolic function is normal, estimated at 55-60%. 4. The left ventricular diastolic function is normal. 5. E/e' 5 is not elevated. 6. Global longitudinal strain is normal at -18.4%. 7. There is trace tricuspid valve regurgitation. 8. No pulmonary hypertension, estimated pulmonary arterial systolic pressure is 12 mmHg. Left Ventricle E/e' 5 is not elevated. Global longitudinal strain is normal at -18.4%. Left ventricular chamber dimension is normal. Left ventricular systolic function is normal, estimated at 55-60%. The left ventricular diastolic function is normal. Right Ventricle Right ventricular systolic function is normal and with normal TAPSE 1.9 cm. Right ventricular chamber dimension is normal. Left Atria Left atrial chamber dimension is normal. Right Atria Right atrial chamber dimension is normal. Aortic Valve The aortic valve is trileaflet. There is no aortic valve stenosis. There is no aortic valve regurgitation. Pulmonic Valve There is no pulmonic regurgitation. Mitral Valve There is no mitral valve stenosis. There is no mitral valve regurgitation. Tricuspid Valve There is trace tricuspid valve regurgitation. No pulmonary hypertension, estimated pulmonary arterial systolic pressure is 12 mmHg. Pericardium/Pleural There is no pericardial effusion. Inferior Vena Cava Normal inferior vena cava with >50% collapse upon inspiration consistent with normal right atrial pressure, 5 mmHg. Aorta The aortic root size at the sinus of Valsalva is normal. Left Ventricular Outflow Tract Name Value Normal LVOT 2D LVOT Diameter 2.0 cm LVOT Doppler LVOT Peak Gradient 3 mmHg LVOT Mean Gradient 2 mmHg LVOT VTI 19 cm LVOT VTI/AV VTI Ratio 0.8 LVOT Stroke Volume 58 ml LVOT CO 3.9 l/min LVOT CI 2.1 l/min/m2 Pulmonic Valve Name Value Normal RVOT Doppler RVOT Peak Gradient 1 mmHg PV Doppler PV Peak Gradient 4 mmHg Mitral Valve Name Value Normal MV Doppler MV Decel Evans 350 cm/s2 MV PHT 63 ms MV Area (PHT) 3.5 cm2 4.0-5.0 MV Diastolic Function MV E Peak Velocity 76 cm/s MV A Peak Velocity 59 cm/s MV E/A 1.3 MV Decel Time 217 ms MV Annular TDI MV E/e' (Septal) 6.5 <=8.0 MV E/e' (Lateral) 5.1 <=8.0 MV E/e' (Average) 5.8 Tricuspid Valve Name Value Normal TV Regurgitation Doppler TR Peak Velocity 133 cm/s TR Peak Gradient 7 mmHg Estimated PAP/RSVP RA Pressure 5 mmHg <=5 PA Systolic Pressure 12 mmHg <36 RV Systolic Pressure 12 mmHg <36 Aorta Name Value Normal Ascending Aorta Ao Root Diameter (MM) 3.3 cm Ao Root Diam Index (MM) 1.8 cm/m2 Aortic Valve Name Value Normal AV Doppler AV Peak Velocity 131 cm/s AV Peak Gradient 7 mmHg AV Mean Gradient 3 mmHg AV VTI 25 cm AV Area (Cont Eq VTI) 2.3 cm2 >=3.0 AV Area (Cont Eq Chandler) 2.2 cm2 AV Regurgitation 2D LVOT Area 3.1 cm2 Ventricles Name Value Normal LV Dimensions 2D/MM IVS Diastolic Thickness (2D) 0.9 cm 0.6-1.0 LVID Diastole (2D) 4.5 cm 3.8-5.2 LVIW Diastolic Thickness (2D) 0.9 cm 0.6-0.9 LVID Systole (2D) 3.2 cm 2.2-3.5 LVOT Diameter 2.0 cm LV Mass (2D Cubed) 132.80 g 67.00-162.00 LV Mass Index (2D Cubed) 73 g/m2 43-95 Relative Wall Thickness (2D) 0.38 LV Fractional Shortening/Ejection Fraction 2D/MM LV Fractional Shortening (2D) 30 % 27-45 LV EF (2D Teicholz) 57 % 54-74 LV Diastolic Volume (4C MOD) 72 ml LV EF (4C MOD) 57 % LV Diastolic Volume (2C MOD) 72 ml LV EF (2C MOD) 58 % LV Diastolic Volume (BP MOD) 72 ml 46-106 LV Diastolic Volume Index (BP MOD) 40 ml/m2 29-61 LV Systolic Volume (BP MOD) 31 ml 14-42 LV Systolic Volume Index (BP MOD) 17 ml/m2 8-24 LV EF (BP MOD) 57 % 54-74 LV Diastolic Length (4C) 7.9 cm LV Systolic Length (4C) 6.4 cm LV Stroke Volume (4C MOD) 41 ml Atria Name Value Normal LA Dimensions LA Dimension (MM) 3.6 cm 2.7-3.8 LA Volume (4C A-L) 36 ml LA Volume (BP A-L) 39 ml RA Dimensions RA Area (4C) 13.9 cm2 <=18.0 EchoPAC Name Value Normal BENNY AA peak sys SL (AWMA) 10.9 % AAS peak sys SL (AWMA) 21.9 % AI peak sys SL (AWMA) 17.4 % AL peak sys SL (AWMA) 20.1 % AP peak sys SL (AWMA) 20.1 % peak sys SL (AWMA) 19.0 % AVC (AWMA) 405 ms BA peak sys SL (AWMA) 23.5 % BAS peak sys SL (AWMA) 17.5 % BI peak sys SL (AWMA) 15.1 % BL peak sys SL (AWMA) 16.8 % BP peak sys SL (AWMA) 19.6 % BS peak sys SL (AWMA) 17.4 % G peak SL(A2C) (AWMA) 17.6 % G peak SL(A4C) (AWMA) 18.3 % G peak SL(APLAX) (AWMA) 19.2 % G peak SL(Avg) (AWMA) 18.4 % MA peak sys SL (AWMA) 21.8 % MAS peak sys SL (AWMA) 19.8 % NV peak sys SL (AWMA) 18.3 % ML peak sys SL (AWMA) 20.0 % MP peak sys SL (AWMA) 16.9 % MS peak sys SL (AWMA) 18.4 % Report Signatures
== END 2024-03-15 13:49 | disposition home or self-care (01) ==
LOC: ANHCARD 13:55
PROVIDERS: PCP Family Medicine; Visit Provider Internal Medicine Hematology & Oncology
DX: C50.919 Malignant neoplasm of unspecified site of unspecified female breast (principal); Z17.0 Estrogen receptor positive status [ER+]
CPT/HCPCS: 93306; C8929

== ENCOUNTER 2024-03-26 13:56 | Outpatient (CLI) | payer BC, SELFPAY ==
--- NOTE | ~2024-03-26 | CT_ITS ---
EXAMINATION: CT chest abdomen pelvis w con DATE: 03/26/2024 14:27 INDICATION: Malignant neoplasm of breast in female. TECHNIQUE: Computed tomography (CT) of the chest, abdomen, and pelvis was performed with 100 mL Omnip aque 350 intravenous contrast. Automated exposure control and iterative reconstruction technique were employed. The dose-length product was 688.95 mGy-cm. COMPARISON: Chest CT 12/13/2023 FINDINGS: CHEST CT: The lungs demonstrate mild atelectasis. There are peripheral reticular opacities in left lung, likely changes of radiation therapy. There is a small right pleural effusion. The heart size is normal. No pericardial effusion. There are bilateral mastectomies. There is a right internal jugular port with t ip in right atrium. There are scattered lytic lesions of bone with interval improvement. There is a p athologic burst fracture of T9 with worsened height loss, but with increased mineralization. There is a pathologic compression fracture of T12. ABDOMEN/PELVIS CT: There are cysts in the liver measuring up to 15 mm . The gallbladder, spleen, pancreas, adrenal gland s, and kidneys are normal. There are no dilated loops of bowel. The appendix is normal. There are no pathologically enlarged lymph nodes. There is no free intraperitoneal fluid. There are scattered lyti c lesions of bone. IMPRESSION: 1. Improved bone lesions, consistent with metastatic disease. 2. T12 pathologic compression fracture, new from 12/13/23. 3. Improved small right pleural effusion. Reviewed, dictated and finalized at location A. PHERE PROCESS SERVER DEVELOPER
== END 2024-03-26 13:57 | disposition home or self-care (01) ==
PROVIDERS: PCP Family Medicine; Visit Provider Internal Medicine Hematology & Oncology
DX: C50.919 Malignant neoplasm of unspecified site of unspecified female breast (principal); Z17.0 Estrogen receptor positive status [ER+]; J90 Pleural effusion, not elsewhere classified
CPT/HCPCS: 71260; 74177; Q9967

== ENCOUNTER 2024-06-03 09:04 | Outpatient (CLI) | payer BC, SELFPAY ==
--- NOTE | ~2024-06-03 | CT_ITS ---
Clinical Indication: Breast cancer CT Scan of the Chest, Abdomen, and Pelvis with Contrast: Technique: Contiguous sections were acquired throughout the chest, abdomen, and pelvis after intraven ous administration of 100 cc of Omnipaque 350. Dose reduction technique was used on this scan by elfego olivoing automated exposure control and iterative reconstruction technique. The dose-length product (DL P) was 481.49 mGy-cm. Comparison: 03/26/2024 Findings: There is no evidence of any significant mediastinal, hilar or axillary lymphadenopathy. The mediastin al soft tissues and vascular structures appear normal. There is no evidence of pleural or pericardial effusion. The lungs are clear. No pulmonary nodules or infiltrates are noted. The liver, spleen, pancreas, gallbladder, adrenals and kidneys are within normal limits. No evidence of aortic aneurysm. No lymphadenopathy. No bowel obstruction or bowel wall thickening. There is no evidence to suggest acute appendicitis. Urinary bladder is unremarkable. No pelvic mass seen. Status post hysterectomy. No ascites. Stable compression deformity of T9, with sclerotic change. Stable subtle mixed lytic sclerotic lesion at T12. Stable lesion of S1 with sclerotic margin. Impression: Stable osseous lesions, and could reflect treated metastatic disease. No new, progressing, or soft tissue metastatic disease evident. Reviewed, dictated and finalized at [facility]. [employer] Impression: Stable osseous lesions, and could reflect treated metastatic disease. No new, progressing, or soft tissue metastatic disease evident.
--- NOTE | ~2024-06-03 | NM_ITS ---
EXAMINATION: NM bone scan whole body DATE: 06/03/2024 13:32 INDICATION: Breast cancer TECHNIQUE: 44.1 mCi Tc-99m HDP was administered intravenously. Delayed whole-body scintigrams were o btained. COMPARISON: CT dated 06/03/2024 and bone scan dated 12/20/2023 FINDINGS: There are multiple foci of abnormal bone uptake including at the right coracoid process, right second and fifth ribs, in the spine, pelvis and intratrochanteric left femur. These are either unchanged or with increased in size and degree of uptake when compared with the prior study. Corresponding mixed lytic and sclerotic lesions on CT. Findings are consistent with progression of metastatic disease. Th ere is a new large lesion at the right femoral neck also with corresponding mixed lytic and sclerotic lesion on CT. Additional new tiny lesion at the mid left femoral diaphysis. IMPRESSION: 1. Mild interval progression in multiple foci of abnormal uptake corresponding to mixed lytic and scl erotic bone lesions on CT consistent with progression of osseous metastatic disease. Reviewed, dictated and finalized at location [facility]. [employer] IMPRESSION: 1. Mild interval progression in multiple foci of abnormal uptake corresponding to mixed lytic and sclerotic bone lesions on CT consistent with progression of osseous metastatic disease.
--- OUTSIDE RECORDS SUMMARY | 2024-06-03 09:38 | XMS_ITS | Encounter Summary ---
Author Organization [facility] Address [address] [place] [address] Phone Care Team Providers Care Home Care Nurse Name Role Phone Oksana Heath MD Primary Care Provider + Jhony Robledo MD Primary Care Provider [phone] Oksana Heath MD Primary Care Provider + Jhony Robledo MD Primary Care Provider [phone] Rebel Shields MD Unavailable [phone] Issa Baird MD Unavailable [phone] Encounter Details Date Type Department Care Team (Late st Contact Info) Description 07/07/2017 Orders Only [facility] ProviderBartolo MD [address] [place] [id number] Social History Tobacco Use Types Packs/Day Years Used Date Smoking Tobacco: Never Smokeless Tobacco: Never Alcohol Use Standard Drinks/Week Comments Yes 0 (1 standard drink = 0.6 oz pur e alcohol) Comments No Sex and Gender Information Value Date Recorded Sex Assigned at Not on file Legal Sex Female 3:06 AM BOTTLE CAPPER Gender Identity Not on file Sexual Orientation Not on file documented as of this encounter Plan of Treatment Not on file documented as of this encounter Procedures Procedure Name Priority Date/Time Associated Diagnosis Comments GENERAL RADIOLOGY REPORT 07/07/2017 documented in this encounter Results * GENERAL RADIOLOGY REPORT (07/07/2017) Anatomical Region Laterality Modality Radiographic Bety ging Narrative 07/07/2017 Ordered by an unspecified provider. us Historical Provider MD FLORES XR PROCEDURES Final R esult documented in this encounter Visit Diagnoses Not on filedocumented in this encounter Care Teams Home Care Nurse Relationship Specialty Start Date End Date Oksana Heath MD [address] [place] [address] PCP - General 06/16/17 08/24/17 Jhony Robledo MD [address] [place] [address] PCP - General 08/25/17 09/07/17 Oksana Heath MD [address] [place] [address] PCP - General Gynecology 09/08/17 12/21/17 Jhony Robeldo MD [address] [place] [address] PCP - General 12/22/17 Rebel Shields MD [address] [place] [address] Medical Oncologist/Hematologis t Hematology and Oncology 11/04/19 Issa Baird MD [address] [place] [address] Referring Physician Hematology 12/25/23 documented as of this encounter
--- OUTSIDE RECORDS SUMMARY | 2024-06-03 09:38 | XMS_ITS | Clinical Summary ---
Author Organization [facility] Raheem Gongora Address [address] [place] [address] Care Team Providers Care Missile Tracking Technician Name Role Phone Jhony Robledo MD Primary Care Provider Allergies No known active allergies Medications calcium carbonate/vitam in D3 (CALCIUM 600 + D,3, ORAL) Take by mouth. Active multivitamin (DAILY-TERRY) tablet Take 2 Tablets by mouth. Active meloxicam (MOBIC) 15 mg tablet Take 1 Tablet by mouth daily. 11/21/2023 Active ondansetron (ZOFRAN ODT) 8 mg Tablet, Rapid Dissolve Dissolve 1 tablet on top of tongue then swallow with saliva every 8 hours as needed for nausea or vomiting 30 Tablet 1 01/16/2024 Active lidocaine-prilo federica (EMLA) 2.5-2.5 % Cream Apply a quarter size amount to port site 30 minutes before access. 30 Gram 1 01/16/2024 Active dexAMETHasone (DECADRON) 4 mg tablet Take 2 Tablets (8 mg) by mouth 2 times daily day before treatment, day of treatment, and day after treatment. 12 Tablet 3 02/15/2024 Active ferrous sulfate 325 mg (65 mg iron) tablet Take 325 mg by mouth daily. Active cyanocobalamin 1,000 mcg Tablet Take 1,000 mcg by mouth daily. Active Active Problems Problem Noted Date Diagnosed Date History of invasive ductal carcinoma of breast 0 11/12/2019 Osteoporosis due to aromatase inhibitor 11/12/19 Encounters Date Type Department Care Team Description 05/29/2024 External Device Data STL ABSTRACTION Provider, Abstract 05/27/2024 Orders Only [facility] Oncology and Hematology - [place] [address] [place] [id number] Issa Baird MD Malignant neoplasm of breast in female, estrogen receptor positive, unspecified laterality, unspecified site of breast (CMS/HCC) 05/17/2024 Orders Only [facility] Oncology and Hematology - [place] [address] [place] [id number] Issa Baird MD 05/13/2024 Orders Only [facility] Oncology and Hematology - [place] [address] [place] [id number] Issa Baird MD Malignant neoplasm of breast in female, estrogen receptor positive, unspecified laterality, unspecified site of breast (CMS/HCC) 05/10/2024 8:30 AM HOUSEMAN Office Visit [facility] Oncology and Hematology - [place] [address] [place] [id number] Joseph Starr MD Malignant neoplasm of breast in female, estrogen receptor positive, unspecified laterality, unspecified site of breast (CMS/HCC) (Primary Dx) 04/29/2024 Orders Only [facility] Oncology and Hematology - [place] [address] [place] [id number] Issa Baird MD Malignant neoplasm of breast in female, estrogen receptor positive, unspecified laterality, unspecified site of breast (CMS/HCC) 04/23/2024 Orders Only [facility] Oncology and Hematology - [place] [address] [place] [id number] Issa Baird MD 04/22/2024 Orders Only [facility] Oncology and Hematology - [place] [address] [place] [id number] Issa Baird MD 04/19/2024 9:30 AM HOUSEMAN Office Visit [facility] Oncology and Hematology - [place] [address] [place] [id number] Issa Baird MD Malignant neoplasm of breast in female, estrogen receptor positive, unspecified laterality, unspecified site of breast (CMS/HCC) (Primary Dx) 04/15/2024 Orders Only [facility] Oncology and Hematology - [place] [address] [place] [id number] Issa Baird MD Malignant neoplasm of breast in female, estrogen receptor positive, unspecified laterality, unspecified site of breast (CMS/HCC) 04/02/2024 Orders Only [facility] Oncology and Hematology - [place] [address] [place] [id number] Issa Baird MD 04/01/2024 Orders Only [facility] Oncology and Hematology - [place] [address] [place] [id number] Issa Baird MD Malignant neoplasm of breast in female, estrogen receptor positive, unspecified laterality, unspecified site of breast (CMS/HCC) 03/28/2024 9:30 AM HOUSEMAN Office Visit [facility] Oncology and Hematology - [place] [address] [place] [id number] Issa Baird MD Malignant neoplasm of breast in female, estrogen receptor positive, unspecified laterality, unspecified site of breast (CMS/HCC) (Primary Dx) 03/27/2024 Orders Only [facility] Oncology and Hematology - [place] [address] [place] [phone] Issa Baird MD 03/18/2024 Orders Only [facility] Oncology and Hematology - [place] [address] [place] [id number] Issa Baird MD Malignant neoplasm of breast in female, estrogen receptor positive, unspecified laterality, unspecified site of breast (CMS/HCC) 03/08/2024 Orders Only [facility] Oncology and Hematology - [place] [address] [place] [id number] Issa Baird MD 03/08/2024 Abstract [facility] Oncology and Hematology - [place] [address] [place] [address] Issa Baird MD 03/07/2024 Orders Only [facility] Oncology and Hematology [place] [address] [place] [address] Issa Baird MD Malignant neoplasm of breast in female, estrogen receptor positive, unspecified laterality, unspecified site of breast (CMS/HCC) (Primary Dx); Encounter for antineoplastic chemotherapy 03/04/2024 Orders Only [facility] Oncology and Hematology [place] [address] [place] [address] Issa Baird MD Malignant neoplasm of breast in female, estrogen receptor positive, unspecified laterality, unspecified site of breast (CMS/HCC) from Last 3 Months Family History Medical History Relation Name Comments Cancer Brother Cancer Mother Relation Name Status Comments Brother Alive Father Alive Mother Alive Social History Tobacco Use Types Packs/Day Years Used Date Smoking Tobacco: Never Smokeless Tobacco: Never Tobacco Cessation:Counseling Given: Not Answered Alcohol Use Standard Drinks/Week Comments Yes 0 (1 standard drink = 0.6 oz pur e alcohol) Comments Unknown Sex and Gender Information Value Date Recorded Sex Assigned at Not on file Legal Sex Female 2:51 PM CDT Gender Identity Not on file Sexual Orientation Not on file Last Filed Vital Signs Vital Sign Reading Time Taken Comments Blood Pressure 117/76 05/10/2024 8:34 AM HOUSEMAN Pulse 97 05/10/2024 8:34 AM HOUSEMAN Temperature 36.8 ??C (98.3 ??F) 05/10/2024 8:34 AM CS T Respiratory Rate 17 05/10/2024 8:34 AM HOUSEMAN Oxygen Saturation 97% 05/10/2024 8:34 AM HOUSEMAN Inhaled Oxygen Concentration - - Weight 74.9 kg (165 lb 3.2 oz) 05/10/2024 8:34 A M HOUSEMAN Height 165.1 cm (5' 5 ) 12/31/2021 8:26 AM CDT Body Mass Index 27.49 12/31/2021 8:26 AM CDT Plan of Treatment Upcoming Encounters Date Type Department Care Team (Late st Contact Info) Description 06/20/2024 8:45 AM HOUSEMAN Office Visit [facility] Oncology and Hematology [facility] [address] [place] [address] Isas Baird MD [address] [facility] [address] [place] [address] Health Maintenance Due Date Last Done Comments Pre-Diabetes and Diabetes Screening 1975 DTAP/TDAP/TD VACCINES (1 - Tdap) 1994 HEPATITIS B VACCINES (1 of 3 - 19+ 3-dose series) 1994 CERVICAL CANCER SCREENING 2005 BREAST CANCER SCREENING 2015 08/08/2012 FIT-DNA Q 3 years 2020 FIT/FOBT Q 1 year 2020 Flex Sig/CT Colonography Q 5 years 2020 INFLUENZA VACCINE (#1) 2023 03/13/2015, 2013 Preventative Visit- Commercial 05/08/2024 COLORECTAL SCREENING 02/05/2029 02/05/2019, 02/06/20 Colorectal Cancer Screening 02/05/2029 Procedures Procedure Name Priority Date/Time Associated Diagnosis Comments BASIC METABOLIC PANEL Routine 05/10/2024 1:19 PM HOUSEMAN CANCER ANTIGEN 15-3 Routine 05/10/2024 1 :16 PM HOUSEMAN CANCER ANTIGEN 15-3 Routine 05/10/2024 1 2:11 PM HOUSEMAN CBC WITH DIFFERENTIAL Routine 05/10/2024 11:55 AM HOUSEMAN CANCER ANTIGEN 15-3 Routine 04/22/2024 1 2:44 PM HOUSEMAN BASIC METABOLIC PANEL Routine 04/19/2024 10:43 AM HOUSEMAN COMPREHENSIVE METABOLIC PANEL Routine 04/19/2024 10:37 AM HOUSEMAN CANCER ANTIGEN 15-3 Routine 03/30/2024 9 :07 AM HOUSEMAN CANCER ANTIGEN 15-3 Routine 03/30/2024 9 :03 AM HOUSEMAN IRON LEVEL Routine 03/29/2024 8:03 AM HOUSEMAN COMPREHENSIVE METABOLIC PANEL Routine 03/28/2024 12:[address] CHEST ABDOMEN PELVIS W CONT Routine 03/26/2024 9:59 AM HOUSEMAN ECHO COMPLETE Routine 03/15/2024 10:59 AM HOUSEMAN IRON LEVEL Routine 03/07/2024 9:09 AM CDT from Last 3 Months Results * BASIC METABOLIC PANEL (05/10/2024 1:19 PM HOUSEMAN) Only the most recent of2 resultswithin the time period is included. Blood Result Oren Baird MD CHEMISTRY ORDERABLES Final Resu lt * CANCER ANTIGEN 15-3 (05/10/2024 1:16 PM HOUSEMAN) Only the most recent of5 resultswithin the time period is included. Blood Result Oren Baird MD CHEMISTRY ORDERABLES Final Resu lt * CBC WITH DIFFERENTIAL (05/10/2024 11:55 AM HOUSEMAN) Blood Result Oren Baird MD HEMATOLOGY ORDERABLES Final Res ult * COMPREHENSIVE METABOLIC PANEL (04/19/2024 10:37 AM HOUSEMAN) Only the most recent of2 resultswithin the time period is included. Blood Result Oren Baird MD CHEMISTRY ORDERABLES Final Resu lt * IRON LEVEL (03/29/2024 8:03 AM HOUSEMAN) Only the most recent of2 resultswithin the time period is included. Blood Result Oren Baird MD CHEMISTRY ORDERABLES Final Resu lt * CT CHEST ABDOMEN PELVIS W CONT (03/26/2024 9:59 AM HOUSEMAN) Anatomical Region Laterality Modality Chest Other Result Oren Baird MD CT ORDERABLES Final Result * ECHO COMPLETE - CONTRAST AND STRAIN IF INDICATED (03/15/2024 10:59 AM HOUSEMAN) Result Oren Baird MD US ORDERABLES Final Result from Last 3 Months Insurance BLUE ACCESS CHOICE Care Teams Missile Tracking Technician Relationship Specialty Start Date End Date Jhony Robledo MD [address] [place] [phone] PCP - General Family Practice 09/19/19
--- OUTSIDE RECORDS SUMMARY | 2024-06-03 09:38 | XMS_ITS | Referral Summary ---
Author Organization [facility] Address [address] [place] [address] Care Team Providers Care Mobile Pet Groomer Name Role Phone Jhony Robledo MD Primary Care Provider Rebel Shields MD Unavailable [phone] Issa Baird MD Unavailable [phone] Allergies No known active allergies Medications cholecalciferol (VITAMIN D3) 5,000 unit tablet take 1 a day 0 0 05/14/2014 Active multivitamin tabletIndicatio ns:Vitamin Deficiency Prevention Take 2 tablets by mouth daily 2 gummies daily Active calcium carbonate/vitam in D3 (CALCIUM 500 + D ORAL) Take 1 tablet by mouth daily. 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 Recent CT abdomen revealed no inflammatory lesion. ?diverticular dz. Doubt neoplasm. Plan Colonoscopy recommended. The procedure risks including, but not limited to perforation infection bleeding and anesthetic complications were discussed and the patient verbalized understanding and agreed to proceed. Iron deficiency anemia 01/22/2019 Assessment & Plan (01/22/2019 8:00 PM CDT): Recurrent. May be due to anemia of multiple medical problems. She has a hx of breast cancer and has had hysterectomy. Plan Check iron studies. May need EGD in addition to colonoscopy if iron indices are consistent with iron deficiency. Osteopenia of spine 05/29/2018 History of breast cancer 01/05/2018 Overview (01/05/2018): Added automatically from request for surgery [id number] Hemorrhage of rectum and anus 05/15/2014 Overview (08/12/2016): Hemorrhage of rectum and anus Immunizations Name Administration Dates Next Due Influenza, Quadrivalent, Spl it, Preservative Free, Intramuscular 03/13/2015,02/21/2014 Social History Tobacco Use Types Packs/Day Years Used Date Smoking Tobacco: Never Smokeless Tobacco: Never Alcohol Use Standard Drinks/Week Comments Yes 0 (1 standard drink = 0.6 oz pur e alcohol) occaionally PHQ-2 Answer Date Recorded PHQ-2 Score 0 01/22/2019 Comments No Sex and Gender Information Value Date Recorded Sex Assigned at Not on file 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 Gender Identity Not on file Sexual Orientation Not on file Last Filed Vital Signs Vital Sign Reading Time Taken Comments Blood Pressure 113/68 01/09/2024 8:04 AM CDT Pulse 90 01/09/2024 8:04 AM CDT Temperature 36.2 ??C (97.2 ??F) 01/09/2024 8:04 AM CD T Respiratory Rate 16 01/09/2024 8:04 AM CDT Oxygen Saturation 97% 01/09/2024 8:04 AM CDT Inhaled Oxygen Concentration - - Weight 69.7 kg (153 lb 9.6 oz) 01/09/2024 8:04 A M CDT Height 167 cm (5' 5.75 ) 01/09/2024 8:04 AM CDT Body Mass Index 24.98 01/09/2024 8:04 AM CDT Plan of Treatment Not on file Procedures Procedure Name Priority Date/Time Associated Diagnosis Comments COLONOSCOPY 02/05/2019 11:42 AM CDT DIGITAL MAMMOGRAPHY Routine 08/08/2012 3 :54 PM CDT from Last 3 Months or Most Recently Relevant to Health Maintenance Results * COLONOSCOPY (02/05/2019 11:42 AM CDT) Anatomical Region Laterality Modality Other Narrative Procedure Note Albert Meza MD - 02/05/2019 11:42 AM CDT [facility] Endoscopy Lab Patient Name: Christiane Landis Procedure Date: 02/05/2019 11:42 AM Date of : 1975 Admit Type: Outpatient Age: 43 Gender: Female Note Status: Finalized Attending MD: Albert Meza M.D. Procedure Date: 02/05/2019 Procedure: Colonoscopy Indications: Abdominal pain in the right lower quadrant, Anemia Providers: Albert Meza M.D., Reina Schneider,SHEATHER (Anesthesia Staff), Samra Castle RN Referring MD: Jhony Robledo M.D. Medicines: Monitored Anesthesia Care Complications: No immediate complications. Estimated Blood Loss: Estimated blood loss: none. Procedure: Pre-Anesthesia Assessment: - Prior to the procedure, a History and Physical was performed, and patient medications and allergieswere reviewed. The patient is competent. The risks and benefits of the procedure and the sedation optionsand risks were discussed with the patient. All questions were answered and informed consent was obtained. Patient identification and proposed procedure were verified by the physician, the nurse and the anesthesiologist in the procedure room. MentalStatus Examination: alert and oriented. Airway Examination: normal oropharyngeal airway and neck mobility. Respiratory Examination: clear to auscultation. CV Examination: normal. Prophylactic Antibiotics: The patient does not require prophylactic antibiotics. Prior Anticoagulants: The patient has taken noprevious anticoagulant or antiplatelet agents. ASA Grade Assessment: II - A patient with mild systemicdisease. After reviewing the risks and benefits, the patientwas deemed in satisfactory condition to undergo the procedure. The anesthesia plan was to use monitored anesthesia care (MAC). Immediately prior to administration of medications, the patient was re-assessed for adequacy to receive sedatives. The heart rate, respiratory rate, oxygen saturations,blood pressure, adequacy of pulmonary ventilation, and response to care were monitored throughout the procedure. The physical status of the patient was re-assessed after the procedure. - The risks and benefits of the procedure and the sedation options and risks were discussed with the patient. All questions were answered and informed consent was obtained. After I obtained informed consent, the scope waspassed under direct vision. Throughout the procedure, the patient's blood pressure, pulse, and oxygensaturations were monitored continuously. The scope was passedunder direct vision. The Colonoscope was introducedthrough the anus and advanced to the the terminal ileum. The colonoscopy was performed without difficulty. The patient tolerated the procedure well. The quality of the bowel preparation was adequate. The bowel preparation used was SUPREP. Bowel prep was administered using a split dose. Findings: The terminal ileum appeared normal. Multiple small-mouthed diverticula were found in the sigmoid colonand in the descending colon. The exam was otherwise without abnormality on direct and retroflexion views. Impression: - The examined portion of the ileum was normal. - Diverticulosis in the sigmoid colon and in the descending colon. - The examination was otherwise normal on direct and retroflexion views. - No specimens collected. Recommendation: - High fiber diet. - Monitor Hct - Return to my office in 1 month. - Repeat colonoscopy at age 50 for screeningpurposes. Procedure Code(s): --- Professional --- 43787, Colonoscopy, flexible; diagnostic, including collection of specimen(s) by brushing or washing,when performed (separate procedure) Diagnosis Code(s): --- Professional --- R10.31, Right lower quadrant pain D64.9, Anemia, unspecified K57.30, Diverticulosis of large intestine without perforation or abscess without bleeding CPT copyright 2017 [employer]. All rights reserved. The codes documented in this report are preliminary and upon dress marker reviewmay be revised to meet current compliance requirements. Electronically signed by Albert Meza M.D. Albert Meza M.D. 02/05/2019 12:09:04 PM Number of Addenda: 0 Note Initiated On: 02/05/2019 11:42 AM Albert Meza MD ENDOSCOPY PROCEDURES Fi nal Result * DIGITAL MAMMOGRAPHY (08/08/2012 3:54 PM CDT) Anatomical Region Laterality Modality Breast Mammography 08/08/2012 3:54 PM CDT Historical Provider IMG MAMMO PROCEDURES Allie l Result from Last 3 Months or Most Recently Relevant to Health Maintenance Insurance ANTHEM ACCESS CHOICE ANTHEM ACCESS CHOICE Care Teams Mobile Pet Groomer Relationship Specialty Start Date End Date Jhony Robledo MD [address] [place] [address] PCP - General 12/22/17 Rebel Shields MD [address] [place] [address] Medical Oncologist/Hematologis t Hematology and Oncology 11/04/19 Issa Baird MD [address] [address] Referring Physician Hematology 12/25/23
--- OUTSIDE RECORDS SUMMARY | 2024-06-03 09:38 | XMS_ITS | Encounter Summary ---
Author Organization [facility] Address [address] [place] [address] Phone Care Team Providers Care First Leveler Name Role Phone Jhony Robledo MD Primary Care Provider [phone] Rebel Shields MD Unavailable [phone] Issa Baird MD Unavailable [phone] Encounter Details Date Type Department Care Team (Late st Contact Info) Description 12/25/2023 Telephone [facility] Oncology [address], [place] [address] Justyna Tavera Social History Tobacco Use Types Packs/Day Years Used Date Smoking Tobacco: Never Smokeless Tobacco: Never Alcohol Use Standard Drinks/Week Comments Yes 0 (1 standard drink = 0.6 oz pur e alcohol) occaionally PHQ-2 Answer Date Recorded PHQ-2 Score 0 01/22/2019 Comments No Sex and Gender Information Value Date Recorded Sex Assigned at Not on file 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 Gender Identity Not on file Sexual Orientation Not on file documented as of this encounter Plan of Treatment Not on file documented as of this encounter Visit Diagnoses Not on filedocumented in this encounter Care Teams First Leveler Relationship Specialty Start Date End Date Jhony Robledo MD [address] [place] [address] PCP - General 12/22/17 Rebel Shields MD [address] [place] [address] Medical Oncologist/Hematologis t Hematology and Oncology 11/04/19 Issa Baird MD [address] [address] Referring Physician Hematology 12/25/23 documented as of this encounter
--- OUTSIDE RECORDS SUMMARY | 2024-06-03 09:38 | XMS_ITS ---
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 Past Plans Radiation Treatments * No radiation treatments are documented for this patient in [facility]. Treatments may have been administered in another system.
--- OUTSIDE RECORDS SUMMARY | 2024-06-03 09:38 | XMS_ITS | Clinical Summary ---
Author Organization [facility] Address [address] [place] [address] Care Team Providers Care Explosive Operator Bomb Name Role Phone Jhony Robledo MD Primary Care Provider [phone] Rebel Shields MD Unavailable [phone] Issa Baird MD Unavailable [phone] Allergies No known active allergies Medications [...] (01/23/2019): Added automatically from request for surgery [id number] Absolute anemia 01/22/2019 Right lower quadrant abdominal [...] (01/05/2018): Added automatically from request for surgery [id number] Hemorrhage of rectum and anus 05/15/2014 Overview (08/12/2016): Hemorrhage of rectum and anus Immunizations Name Administration Dates Next Due Influenza, Quadrivalent, Spl it, Preservative Free, Intramuscular 03/13/2015,02/21/2014 Surgical History Surgery Date Site/Laterality Comments OTHER SURGICAL HISTORY Cervical dysplasia: LEEP OTHER SURGICAL HISTORY 05/08/2014 - 05/07/2015 hemorrhoids (bleeding): s/p colonoscopy HYSTERECTOMY PORTACATH PLACEMENT WISDOM TOOTH EXTRACTION MASTECTOMY 05/16/2013 Bilateral Bilateral BREAST RECONSTRUCTION Right REVISION RECONSTRUCTED BREAST 02/20/2018 Right with repair of abdominal bulge. COLONOSCOPY 05/08/2014 - 05/07/2015 date of last colonoscopy 2014 Medical History Medical History Date Comments Cardiac arrhythmia Asthma Hx Other Medical Cervical dyspla channing; Comments: JST 09/20/2016 - Hyperlipidemia Hemorrhoids hemorrhoids (ble eding); Comments: JST 09/20/2016 - JST 09/20/2016 -f/u in 5 yrs; Outcome: hemorrhoids only Breast cancer (HCC) 05/16/2013 Left Motion sickness Osteopenia Family History Medical History Relation Name Comments Other Brother 1 hodgkins diease ; Hodgkin's lymphoma Brother 2 Hodgkin's disease; Other Father Alive and well; Breast cancer Maternal Grandmother Cancer , breast; /breast cancer; Breast cancer Mother Cancer, breast ; Other Mother brain tumor milana gin; /ovarian tumor bengin; Breast cancer Mother's Sister Cancer, ngozi ast; Breast cancer Paternal Grandmother Cancer , breast; Other Paternal Grandmother pageant s diease; Relation Name Status Comments Brother 1 Brother 2 Father Alive Maternal Grandmother Mother Mother's Sister Paternal Grandmother Social History Tobacco Use Types Packs/Day Years Used Date Smoking Tobacco: Never Smokeless Tobacco: Never Alcohol Use Standard Drinks/Week Comments Yes 0 (1 standard drink = 0.6 oz pur e alcohol) occaionally PHQ-2 Answer Date Recorded PHQ-2 Score 0 01/22/2019 Comments No Sex and Gender Information Value Date Recorded Sex Assigned at Not on file 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 Gender Identity Not on file Sexual Orientation Not on file Obstetrics History Last Filed Vital Signs Vital Sign Reading [...] 01/09/2024 8:04 AM CDT Plan of Treatment Health Maintenance Due Date Last Done Comments Hepatitis C Screening 1975 Pneumococcal vaccine <65 (1 of 2 - PCV) 1981 DTaP/Tdap/Td Vaccine (1 - Tdap) 1986 Hepatitis B Screening 1993 Regular Well Visit/Exam 18-64 1993 Zoster Vaccine (1 of 2) 1994 Breast Cancer Screening-Mammogram 08/08/2013 013 Depression Screening 01/23/2020 01/22/2019 Influenza Vaccine (#1) 2024 5, 02/21/2014, 05/22/2013 Colon Cancer Screening-Colonoscopy 02/05/20292018, 06/03/2014 Procedures Procedure Name Priority Date/Time Associated Diagnosis Comments COLONOSCOPY 02/05/2019 11:42 AM CDT DIGITAL MAMMOGRAPHY Routine 08/08/2012 3 :54 PM CDT from Last 3 Months or Most Recently Relevant to Health Maintenance Results * COLONOSCOPY (02/05/2019 11:42 AM CDT) Anatomical Region Laterality Modality Other Narrative Procedure Note Albert Meza MD - 02/05/2019 11:42 AM CDT [facility] Endoscopy Lab Patient Name: Christiane Landis Procedure Date: 02/05/2019 11:42 AM Date of : 1975 Admit Type: Outpatient Age: 43 Gender: Female Note Status: Finalized Attending MD: Albert Meza M.D. Procedure Date: 02/05/2019 Procedure: Colonoscopy Indications: Abdominal pain in the right lower quadrant, Anemia Providers: Albert Meza M.D., Reina Schneider CRNA (Anesthesia Staff), Samra Castle RN Referring MD: [...] for screeningpurposes. Procedure Code(s): --- Professional --- 34955, Colonoscopy, flexible; diagnostic, including collection of specimen(s) by brushing or washing,when performed (separate procedure) Diagnosis Code(s): --- Professional --- R10.31, Right lower quadrant pain D64.9, Anemia, unspecified K57.30, Diverticulosis of large intestine without perforation or abscess without bleeding CPT copyright 2017 [employer]. All rights reserved. The codes documented in this report are preliminary and upon medical record coder reviewmay be revised to meet current compliance [...] ACCESS CHOICE ANTHEM ACCESS CHOICE Care Teams Explosive Operator Bomb Relationship Specialty Start Date End Date Jhony Robledo MD [address] [place] [address] PCP - General 12/22/17 Rebel Shields MD [address] [place] [address] Medical Oncologist/Hematologis t Hematology and Oncology 11/04/19 Issa Baird MD [address] [address] Referring Physician Hematology 12/25/23
== END 2024-06-03 09:05 | disposition home or self-care (01) ==
PROVIDERS: PCP Family Medicine; Visit Provider Internal Medicine Hematology & Oncology
DX: C50.919 Malignant neoplasm of unspecified site of unspecified female breast (principal); Z17.0 Estrogen receptor positive status [ER+]; R93.89 Abnormal findings on diagnostic imaging of other specified body structures
CPT/HCPCS: 71260; 74177; 78306; A9503; Q9967

== ENCOUNTER 2024-06-13 08:32 | Outpatient (CLI) | payer BC, SELFPAY ==
--- NOTE | 2024-06-13 | ECHO_ITS ---
Patient Info Name: Christiane Landis Age: 49 years : 1975 Gender: Female Ht: 66 in Wt: 155 lbs BSA: 1.82 m2 HR: 84 bpm BP: 120 / 62 mmHg Heart Rhythm: Sinus Rhythm Technical Quality: Excellent Exam Date: 06/13/2024 9:05 AM Exam Location: Echo Lab Exam Room: OP Patient Status: Outpatient Admit Date: 06/13/2024 Staff Ordering Physician: Issa Baird MD Presidential Helicopter Crew Chief: Mira Navarro RDCS Attending Provider: Issa Baird MD Referring Physician: Oli BAUTISTA; Exam Type: CA echo doppler color flow Study Info Indications - ENCOUNTER FOR CHEMOTHERAPY Complete two-dimensional, color flow and Doppler transthoracic echocardiogram is performed. Strain analysis performed. Summary 1. Complete two-dimensional, color flow and Doppler transthoracic echocardiogram is performed. 2. Left ventricular systolic function is mildly globally reduced, estimated at 45-50%. 3. Left ventricular chamber dimension is normal. 4. The left ventricular diastolic function is normal. 5. E/e' 6 is not elevated. 6. Global longitudinal strain is normal at -17.1%. 7. Left atrial chamber dimension is mildly enlarged. 8. There is trace tricuspid valve regurgitation. 9. No pulmonary hypertension, estimated pulmonary arterial systolic pressure is 32 mmHg. 10. There is trace pulmonic regurgitation. Left Ventricle E/e' 6 is not elevated. Global longitudinal strain is normal at -17.1%. Left ventricular systolic function is mildly globally reduced, estimated at 45-50%. Left ventricular chamber dimension is normal. The left ventricular diastolic function is normal. Right Ventricle Right ventricular systolic function is normal and with normal TAPSE 2.0 cm. Right ventricular chamber dimension is normal. Left Atria Left atrial chamber dimension is mildly enlarged. Right Atria Right atrial chamber dimension is normal. Aortic Valve The aortic valve is trileaflet. There is no aortic valve stenosis. There is no aortic valve regurgitation. Pulmonic Valve There is trace pulmonic regurgitation. Mitral Valve There is no mitral valve stenosis. There is no mitral valve regurgitation. Tricuspid Valve There is trace tricuspid valve regurgitation. No pulmonary hypertension, estimated pulmonary arterial systolic pressure is 32 mmHg. Pericardium/Pleural There is no pericardial effusion. Inferior Vena Cava Normal inferior vena cava with >50% collapse upon inspiration consistent with normal right atrial pressure, 5 mmHg. Aorta The aortic root size at the sinus of Valsalva is normal. Left Ventricular Outflow Tract Name Value Normal LVOT 2D LVOT Diameter 2.2 cm LVOT Doppler LVOT Peak Gradient 3 mmHg LVOT Mean Gradient 2 mmHg LVOT VTI 19 cm LVOT VTI/AV VTI Ratio 0.7 LVOT Stroke Volume 70 ml LVOT CO 5.1 l/min LVOT CI 2.8 l/min/m2 Pulmonic Valve Name Value Normal PV Doppler PV Peak Gradient 2 mmHg PV Regurgitation Doppler AR Peak End Diastolic Velocity 77 cm/s Mitral Valve Name Value Normal MV Doppler MV Peak Gradient 2 mmHg MV Mean Gradient 1 mmHg MV Decel Mason 398 cm/s2 MV PHT 55 ms MV Area (PHT) 4.0 cm2 4.0-5.0 MV Area (Cont Eq VTI) 4.0 cm2 MV Diastolic Function MV E Peak Velocity 75 cm/s MV A Peak Velocity 89 cm/s MV E/A 0.8 MV Decel Time 189 ms MV Annular TDI MV E/e' (Septal) 8.7 <=8.0 MV E/e' (Lateral) 6.1 <=8.0 MV E/e' (Average) 7.4 Tricuspid Valve Name Value Normal TV Regurgitation Doppler TR Peak Velocity 262 cm/s TR Peak Gradient 27 mmHg Estimated PAP/RSVP RA Pressure 5 mmHg <=5 PA Systolic Pressure 32 mmHg <36 RV Systolic Pressure 32 mmHg <36 Aortic Valve Name Value Normal AV Doppler AV Peak Velocity 120 cm/s AV Peak Gradient 6 mmHg AV Mean Gradient 4 mmHg AV VTI 25 cm AV Area (Cont Eq VTI) 2.8 cm2 >=3.0 AV Area (Cont Eq Chandler) 2.6 cm2 AV Regurgitation 2D LVOT Area 3.8 cm2 Ventricles Name Value Normal LV Dimensions 2D/MM IVS Diastolic Thickness (2D) 0.7 cm 0.6-1.0 LVID Diastole (2D) 5.4 cm 3.8-5.2 LVID Diastole (MM) 5.4 cm 3.8-5.2 LVIW Diastolic Thickness (2D) 0.8 cm 0.6-0.9 LVID Systole (2D) 4.2 cm 2.2-3.5 LVID Systole (MM) 4.3 cm 2.2-3.5 LVOT Diameter 2.2 cm LV Mass (2D Cubed) 145.78 g 67.00-162.00 LV Mass Index (2D Cubed) 80 g/m2 43-95 Relative Wall Thickness (2D) 0.29 LV Fractional Shortening/Ejection Fraction 2D/MM LV Fractional Shortening (2D) 23 % 27-45 LV Fractional Shortening (MM) 20 % 27-45 LV EF (MM Teicholz) 41 % 54-74 LV EF (2D Teicholz) 45 % 54-74 LV Diastolic Volume (4C MOD) 118 ml LV EF (4C MOD) 43 % LV Diastolic Volume (2C MOD) 176 ml LV EF (2C MOD) 47 % LV Diastolic Volume (BP MOD) 148 ml 46-106 LV Diastolic Volume Index (BP MOD) 82 ml/m2 29-61 LV Systolic Volume (BP MOD) 79 ml 14-42 LV Systolic Volume Index (BP MOD) 44 ml/m2 8-24 LV EF (BP MOD) 46 % 54-74 LV Diastolic Length (4C) 8.6 cm LV Systolic Length (4C) 7.4 cm LV Stroke Volume (4C MOD) 51 ml LV CO (BP MOD) 4.6 l/min LV CI (BP MOD) 2.5 l/min/m2 Atria Name Value Normal LA Dimensions LA Volume (4C A-L) 58 ml LA Volume (BP A-L) 68 ml RA Dimensions RA Area (4C) 15.2 cm2 <=18.0 EchoPAC Name Value Normal BENNY AA peak sys SL (AWMA) 18.8 % AAS peak sys SL (AWMA) 17.0 % AI peak sys SL (AWMA) 20.3 % AL peak sys SL (AWMA) 19.7 % AP peak sys SL (AWMA) 16.0 % peak sys SL (AWMA) 19.9 % AVC (AWMA) 408 ms BAS peak sys SL (AWMA) 15.4 % BI peak sys SL (AWMA) 14.3 % BL peak sys SL (AWMA) 20.7 % BP peak sys SL (AWMA) 16.5 % BS peak sys SL (AWMA) 14.0 % G peak SL(A2C) (AWMA) 18.1 % G peak SL(A4C) (AWMA) 17.9 % G peak SL(APLAX) (AWMA) 16.8 % G peak SL(Avg) (AWMA) 17.6 % MA peak sys SL (AWMA) 22.7 % MAS peak sys SL (AWMA) 18.6 % LA peak sys SL (AWMA) 16.0 % ML peak sys SL (AWMA) 19.4 % MP peak sys SL (AWMA) 18.6 % MS peak sys SL (AWMA) 16.3 % Report Signatures
--- OUTSIDE RECORDS SUMMARY | 2024-06-13 08:38 | XMS_ITS | Encounter Summary ---
Author Organization [facility] Address [address] [place] [address] Phone Care Team Providers Care Claims Counsel Name Role Phone Jhony Robledo MD Primary Care Provider [phone] Rebel Shields MD Unavailable [phone] Issa Baird MD Unavailable [phone] Encounter Details Date Type Department Care Team (Late st Contact Info) Description 12/25/2023 Telephone [facility] Oncology [address], [place] [address] Justyna Tavera Social History Tobacco [...] on file 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 Gender Identity Not on file Sexual Orientation Not on file documented as of this encounter Plan of Treatment Not on file documented as of this encounter Visit Diagnoses Not on filedocumented in this encounter Care Teams Claims Counsel Relationship Specialty Start Date End Date Jhony Robledo MD [address] [place] [address] PCP - General 12/22/17 Rebel Shields MD [address] [place] [address] Medical Oncologist/Hematologis t Hematology and Oncology 11/04/19 Issa Baird MD [address] [address] Referring Physician Hematology 12/25/23 documented as of this encounter
--- OUTSIDE RECORDS SUMMARY | 2024-06-13 08:38 | XMS_ITS | Encounter Summary ---
Author Organization [facility] Address [address] [place] [address] Care Team Providers Care Chemical Milling Processor Name Role Phone Jhony Robledo MD Primary Care Provider Encounter Details Date Type Department Care Team (Late Contact Info) Description 06/10/2024 Orders Only [facility] Oncology and Hematology [place] [address] [place] [address] Issa Baird MD [address] [place] [phone] Malignant neoplasm of breast in female, estrogen receptor positive, unspecified laterality, unspecified site of breast (CMS/HCC) Social History Tobacco Use Types Packs/Day Years [...] as of this encounter Plan of Treatment Upcoming Encounters Date Type Department Care Team (Late Contact Info) Description 06/20/2024 8:45 AM SMALL ENGINE TECHNICIAN Office Visit [facility] Oncology and Hematology - [place] [address] [place] [address] Issa Baird MD [address] [place] [phone] documented as of this encounter Visit Diagnoses Diagnosis Malignant neoplasm of breast in female, estrogen receptor positive, unspecified laterality, unspecified site of breast (CMS/HCC) documented in this encounter Care Teams Chemical Milling Processor Relationship Specialty Start Date End Date Jhony Robledo MD [address] [place] [address] PCP - General Family Practice 09/19/19 documented as of this encounter
--- OUTSIDE RECORDS SUMMARY | 2024-06-13 08:38 | XMS_ITS | Encounter Summary ---
Author Organization [facility] Address [address] [place] [address] Phone Care Team Providers Care Infection Prevention Practitioner Name Role Phone Oksana Heath MD Primary Care Provider + Jhony Robledo MD Primary Care Provider [phone] Oksana Heath MD Primary Care Provider + Jhony Robledo MD Primary Care Provider [phone] Rebel Shields MD Unavailable [phone] sIsa Baird MD Unavailable [phone] Encounter Details Date Type Department Care Team (Late st Contact Info) Description 07/07/2017 Orders Only [facility] ProviderBartolo MD [address] [place] [address] Social History Tobacco Use Types Packs/Day Years Used Date Smoking Tobacco: Never Smokeless Tobacco: Never Alcohol Use Standard Drinks/Week Comments Yes 0 (1 standard drink = 0.6 oz pur e alcohol) Comments No Sex and Gender Information Value Date Recorded Sex Assigned at Not on file 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 Gender Identity Not on file Sexual Orientation [...] on filedocumented in this encounter Care Teams Infection Prevention Practitioner Relationship Specialty Start Date End Date Oksana Heath MD [address] [place] [address] PCP - General 06/16/17 08/24/17 Jhony Robledo MD [address] [place] [address] PCP - General 08/25/17 09/07/17 Oksana Heath MD [address] [place] [address] PCP - General Gynecology 09/08/17 12/21/17 Jhony Robledo MD [address] [place] [address] PCP - General 12/22/17 Rebel Shields MD [address] [place] [address] Medical Oncologist/Hematologis t Hematology and Oncology 11/04/19 Issa Baird MD [address] [place] [address] Referring Physician Hematology 12/25/23 documented as of this encounter
--- OUTSIDE RECORDS SUMMARY | 2024-06-13 08:38 | XMS_ITS ---
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 Past Plans Radiation Treatments * No radiation treatments are documented for this patient in [facility]. Treatments may have been administered in another system.
--- OUTSIDE RECORDS SUMMARY | 2024-06-13 08:38 | XMS_ITS | Clinical Summary ---
Author Organization [facility] Address [address] [place] [address] Care Team Providers Care Director Of Early Childhood Education Name Role Phone Jhony Robledo MD Primary Care Provider [phone] Rebel Shields MD Unavailable [phone] Issa Baird MD Unavailable [phone] Allergies No known active allergies Medications [...] (01/23/2019): Added automatically from request for surgery [id number] Absolute anemia 01/22/2019 Right lower quadrant abdominal [...] (01/05/2018): Added automatically from request for surgery [id number] Hemorrhage of rectum and anus 05/15/2014 Overview [...] on file 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 Procedure Code(s): --- Professional --- 20931, Colonoscopy, flexible; diagnostic, including collection of specimen(s) by brushing or washing,when performed (separate procedure) Diagnosis Code(s): --- Professional --- R10.31, Right lower quadrant pain D64.9, Anemia, unspecified K57.30, Diverticulosis of large intestine without perforation or abscess without bleeding CPT copyright 2017 [employer]. All rights reserved. The codes documented in this report are preliminary and upon art director reviewmay be revised to meet current compliance [...] Most Recently Relevant to Health Maintenance Insurance [employer] ACCESS CHOICE ANTHEM ACCESS CHOICE Care Teams Director Of Early Childhood Education Relationship Specialty Start Date End Date Jhony Robledo MD [address] [place], [place] [address] PCP - General 12/22/17 Rebel Shields MD [address] [place] [address] Medical Oncologist/Hematologis t Hematology and Oncology 11/04/19 Issa Baird MD [address] [address] Referring Physician Hematology 12/25/23
--- OUTSIDE RECORDS SUMMARY | 2024-06-13 08:38 | XMS_ITS | Referral Summary ---
Author Organization [facility] Address [address] [place] [address] Care Team Providers Care School Commissioner Name Role Phone Jhony Robledo MD Primary Care Provider [phone] Rebel Shields MD Unavailable [phone] Issa Baird MD Unavailable Allergies No known active allergies Medications cholecalciferol [...] (01/23/2019): Added automatically from request for surgery [id number] Absolute anemia 01/22/2019 Right lower quadrant abdominal [...] (01/05/2018): Added automatically from request for surgery [id number] Hemorrhage of rectum and anus 05/15/2014 Overview [...] on file 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 Procedure Date: 02/05/2019 Procedure: Colonoscopy Indications: Abdominal pain in the right lower quadrant, Anemia Providers: Albert Meza M.D., Reina Schneider CRNA (Anesthesia Staff), Samra Csatle RN Referring MD: Jhony Robledo M.D. Medicines: [...] for screeningpurposes. Procedure Code(s): --- Professional --- 55643, Colonoscopy, flexible; diagnostic, including collection of specimen(s) by brushing or washing,when performed (separate procedure) Diagnosis Code(s): --- Professional --- R10.31, Right lower quadrant pain D64.9, Anemia, unspecified K57.30, Diverticulosis of large intestine without perforation or abscess without bleeding CPT copyright 2017 [employer]. All rights reserved. The codes documented in this report are preliminary and upon firer diesel locomotive reviewmay be revised to meet current compliance [...] ACCESS CHOICE ANTHEM ACCESS CHOICE Care Teams School Commissioner Relationship Specialty Start Date End Date Jhony Robledo MD [address] [place], [place] [address] PCP - General 12/22/17 Rebel Shields MD [address] [place] [address] Medical Oncologist/Hematologis t Hematology and Oncology 11/04/19 Issa Baird MD [address] [id number] Referring Physician Hematology 12/25/23
--- OUTSIDE RECORDS SUMMARY | 2024-06-13 08:38 | XMS_ITS | Clinical Summary ---
Author Organization [facility] Raheem Gongora Address [address] [place] [address] Care Team Providers Care Assembler Brazer Name Role Phone Jhony Robledo MD Primary [...] 11/12/2019 Osteoporosis due to aromatase inhibitor 11/12/19 20 Encounters Date Type Department Care Team Description 06/10/2024 Orders Only [facility] Oncology and Hematology - [place] [address] [place] [phone] Issa Baird MD Malignant neoplasm of breast in female, estrogen receptor positive, unspecified laterality, unspecified site of breast (CMS/HCC) 06/06/2024 Orders Only [facility] Oncology and Hematology - [place] [address] [place] [phone] Issa Baird MD Encounter for antineoplastic chemotherapy (Primary Dx) 06/04/2024 Orders Only [facility] Oncology and Hematology - [place] [address] [place] [phone] Issa Baird MD Malignant neoplasm of breast in female, estrogen receptor positive, unspecified laterality, unspecified site of breast (CMS/HCC) (Primary Dx) 06/03/2024 Orders Only [facility] Oncology and Hematology - [place] [address] [place] [phone] Issa Baird MD 05/29/2024 External Device Data STL ABSTRACTION Provider, Abstract 05/27/2024 Orders Only [facility] Oncology and Hematology - [place] [address] [place] [phone] Issa Baird MD Malignant neoplasm of breast in female, estrogen receptor positive, unspecified laterality, unspecified site of breast (CMS/HCC) 05/17/2024 Orders Only [facility] Oncology and Hematology - [place] [address] [place] [phone] Issa Baird MD 05/13/2024 Orders Only [facility] Oncology and Hematology - [place] [address] [place] [address] Issa Baird MD Malignant neoplasm of breast in female, estrogen receptor positive, unspecified laterality, unspecified site of breast (CMS/HCC) 05/10/2024 8:30 AM LIFE SKILLS COORDINATOR Office Visit [facility] Oncology and Hematology - [place] [address] [place] [address] Joseph Starr MD Malignant neoplasm of breast in female, estrogen receptor positive, unspecified laterality, unspecified site of breast (CMS/HCC) (Primary Dx) 04/29/2024 Orders Only [facility] Oncology and Hematology - [place] [address] [place] [address] Issa Baird MD Malignant neoplasm of breast in female, estrogen receptor positive, unspecified laterality, unspecified site of breast (CMS/HCC) 04/23/2024 Orders Only [facility] Oncology and Hematology - [place] [address] [place] [phone] Issa Baird MD 04/22/2024 Orders Only [facility] Oncology and Hematology - [place] [address] [place] [address] Issa Baird MD 04/19/2024 9:30 AM LIFE SKILLS COORDINATOR Office Visit [facility] Oncology and Hematology - [place] [address] [place] [address] Issa Baird MD Malignant neoplasm of breast in female, estrogen receptor positive, unspecified laterality, unspecified site of breast (CMS/HCC) (Primary Dx) 04/15/2024 Orders Only [facility] Oncology and Hematology - [place] [address] [place] [address] Issa Baird MD Malignant neoplasm of breast in female, estrogen receptor positive, unspecified laterality, unspecified site of breast (CMS/HCC) 04/02/2024 Orders Only [facility] Oncology and Hematology - [place] [address] [place] [address] Issa Baird MD 04/01/2024 Orders Only [facility] Oncology and Hematology - [place] [address] [place] [address] Issa Baird MD Malignant neoplasm of breast in female, estrogen receptor positive, unspecified laterality, unspecified site of breast (CMS/HCC) 03/28/2024 9:30 AM LIFE SKILLS COORDINATOR Office Visit [facility] Oncology and Hematology - [place] [address] [place] [address] Issa Baird MD Malignant neoplasm of breast in female, estrogen receptor positive, unspecified laterality, unspecified site of breast (CMS/HCC) (Primary Dx) 03/27/2024 Orders Only [facility] Oncology and Hematology - [place] [address] [place] [address] Issa Baird MD 03/18/2024 Orders Only [facility] Oncology and Hematology - [place] [address] [place] [address] Issa Baird MD Malignant neoplasm of breast [...] Comments Blood Pressure 117/76 05/10/2024 8:34 AM LIFE SKILLS COORDINATOR Pulse 97 05/10/2024 8:34 AM LIFE SKILLS COORDINATOR Temperature 36.8 C (98.3 F) 05/10/2024 8:34 AM LIFE SKILLS COORDINATOR Respiratory Rate 17 05/10/2024 8:34 AM LIFE SKILLS COORDINATOR Oxygen Saturation 97% 05/10/2024 8:34 AM LIFE SKILLS COORDINATOR Inhaled Oxygen Concentration - - Weight 74.9 kg (165 lb 3.2 oz) 05/10/2024 8:34 A M LIFE SKILLS COORDINATOR Height 165.1 cm (5' 5 ) 12/31/2021 8:26 AM CDT Body Mass Index 27.49 12/31/2021 8:26 AM CDT Plan of Treatment Upcoming Encounters Date Type Department Care Team (Late st Contact Info) Description 06/20/2024 8:45 AM LIFE SKILLS COORDINATOR Office Visit [facility] Oncology and Hematology [facility] [address] [place] [address] Issa Baird MD [address] [facility] [address] [place] [address] Health Maintenance Due Date Last Done Comments Pre-Diabetes and Diabetes Screening 1975 DTAP/TDAP/TD VACCINES (1 - Tdap) 1994 HEPATITIS B VACCINES (1 of 3 - 19+ 3-dose series) 1994 CERVICAL CANCER SCREENING 2005 BREAST CANCER SCREENING 2015 08/08/2012 FIT-DNA Q 3 years 2020 FIT/FOBT Q 1 year 2020 Flex Sig/CT Colonography Q 5 years 2020 INFLUENZA VACCINE (#1) 2023 03/13/2015, 2013 COLORECTAL SCREENING 02/05/2029 02/05/2019, 02/06/20 19 Colorectal Cancer Screening 02/05/2029 Procedures Procedure Name Priority Date/Time Associated Diagnosis Comments NM BONE SCAN WHOLE BODY Routine 06/03/19 25 2:45 PM LIFE SKILLS COORDINATOR CT CHEST ABDOMEN PELVIS W CONT Routine 06/03/2024 12:04 PM LIFE SKILLS COORDINATOR BASIC METABOLIC PANEL Routine 05/31/2024 1:16 PM LIFE SKILLS COORDINATOR COMPREHENSIVE METABOLIC PANEL Routine 05/31/2024 1:13 PM LIFE SKILLS COORDINATOR CBC WITH AUTODIFFERENTIAL Routine 2024 1:04 PM LIFE SKILLS COORDINATOR BASIC METABOLIC PANEL Routine 05/10/2024 1:19 PM LIFE SKILLS COORDINATOR CANCER ANTIGEN 15-3 Routine 05/10/2024 1 :16 PM LIFE SKILLS COORDINATOR CANCER ANTIGEN 15-3 Routine 05/10/2024 1 2:11 PM LIFE SKILLS COORDINATOR CBC WITH DIFFERENTIAL Routine 05/10/2024 11:55 AM LIFE SKILLS COORDINATOR CANCER ANTIGEN 15-3 Routine 04/22/2024 1 2:44 PM LIFE SKILLS COORDINATOR BASIC METABOLIC PANEL Routine 04/19/2024 10:43 AM LIFE SKILLS COORDINATOR COMPREHENSIVE METABOLIC PANEL Routine 04/19/2024 10:37 AM LIFE SKILLS COORDINATOR CANCER ANTIGEN 15-3 Routine 03/30/2024 9 :07 AM LIFE SKILLS COORDINATOR CANCER ANTIGEN 15-3 Routine 03/30/2024 9 :03 AM LIFE SKILLS COORDINATOR IRON LEVEL Routine 03/29/2024 8:03 AM LIFE SKILLS COORDINATOR COMPREHENSIVE METABOLIC PANEL Routine 03/28/2024 12:58 PM LIFE SKILLS COORDINATOR CT CHEST ABDOMEN PELVIS W CONT Routine 03/26/2024 9:59 AM LIFE SKILLS COORDINATOR ECHO COMPLETE Routine 03/15/2024 10:59 AM LIFE SKILLS COORDINATOR from Last 3 Months Results * NM BONE SCAN WHOLE BODY (06/03/2024 2:45 PM LIFE SKILLS COORDINATOR) Anatomical Region Laterality Modality Other Result Oren Baird MD NM ORDERABLES Final Result * CT CHEST ABDOMEN PELVIS W CONT (06/03/2024 12:04 PM LIFE SKILLS COORDINATOR) Only the most recent of2 resultswithin the time period is included. Anatomical Region Laterality Modality Chest Other Result Oren Baird MD CT ORDERABLES Final Result * BASIC METABOLIC PANEL (05/31/2024 1:16 PM LIFE SKILLS COORDINATOR) Only the most recent of3 resultswithin the time period is included. Blood Result Oren Baird MD CHEMISTRY ORDERABLES Final Resu lt * COMPREHENSIVE METABOLIC PANEL (05/31/2024 1:13 PM LIFE SKILLS COORDINATOR) Only the most recent of3 resultswithin the time period is included. Blood Result Oren Baird MD CHEMISTRY ORDERABLES Final Resu lt * CBC WITH AUTODIFFERENTIAL (05/31/2024 1:04 PM LIFE SKILLS COORDINATOR) Blood Result Oren Baird MD HEMATOLOGY ORDERABLES Final Res ult * CANCER ANTIGEN 15-3 (05/10/2024 1:16 PM LIFE SKILLS COORDINATOR) Only the most recent of5 resultswithin the time period is included. Blood Result Oren Lopezd MD CHEMISTRY ORDERABLES Final Resu lt * CBC WITH DIFFERENTIAL (05/10/2024 11:55 AM LIFE SKILLS COORDINATOR) Blood Issa Baird MD HEMATOLOGY ORDERABLES Final Res ult * IRON LEVEL (03/29/2024 8:03 AM LIFE SKILLS COORDINATOR) Blood Issa Baird MD CHEMISTRY ORDERABLES Final Resu lt * ECHO COMPLETE - CONTRAST AND STRAIN IF INDICATED (03/15/2024 10:59 AM LIFE SKILLS COORDINATOR) Issa Baird MD US ORDERABLES Final Result from Last 3 Months Insurance BLUE ACCESS CHOICE Care Teams Assembler Brazer Relationship Specialty Start Date End Date Jhony Robledo MD [address] [place] [phone] PCP - General Family Practice 09/19/19
== END 2024-06-13 08:33 | disposition home or self-care (01) ==
LOC: ANHCARD 08:33
PROVIDERS: PCP Family Medicine; Visit Provider Internal Medicine Hematology & Oncology
DX: Z51.11 Encounter for antineoplastic chemotherapy (principal)
CPT/HCPCS: 93306

== ENCOUNTER 2024-08-19 08:27 | Outpatient (CLI) | payer BC, SELFPAY ==
--- NOTE | ~2024-08-19 | NM_ITS ---
EXAMINATION: NM bone scan whole body DATE: 08/19/2024 12:02 INDICATION: Breast cancer TECHNIQUE: 24.2 mCi Tc-99m HDP was administered intravenously. Delayed whole-body scintigrams were o btained. COMPARISON: 06/03/2024 FINDINGS: No interval change in several foci of abnormal bone uptake including at the right frontal bone, right humeral neck, right coracoid process, right second and fifth ribs, in the spine, pelvis and intratro chanteric left femur. Small focus of soft tissue extravasation at the site of injection at the right wrist. No new lesions identified. IMPRESSION: 1. No significant interval change in multiple foci of abnormal bone uptake with no new lesions identi fied consistent with stable osseous metastatic disease. Reviewed, dictated and finalized at location A. IMPRESSION: 1. No significant interval change in multiple foci of abnormal bone uptake with no new lesions identified consistent with stable osseous metastatic disease.
--- OUTSIDE RECORDS SUMMARY | 2024-08-19 08:47 | XMS_ITS | Encounter Summary ---
Author Organization [facility] Address [address] [place] [address] Phone Care Team Providers Care Database Report Writer Name Role Phone Jhony Robledo MD Primary Care Provider [phone] Rebel Shields MD Unavailable [phone] Issa Baird MD Unavailable [phone] Encounter Details Date Type Department Care Team (Late st Contact Info) Description 12/25/2023 Telephone 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 Gender Identity Not on file Sexual Orientation Not on file documented as of this encounter Plan of Treatment Not on file documented as of this encounter Visit Diagnoses Not on filedocumented in this encounter Care Teams Database Report Writer Relationship Specialty Start Date End Date Jhony Robledo MD [address] [place] [phone] PCP - General 12/22/17 Rebel Shields MD [address] [place] [address] Medical Oncologist/Hematologis t Hematology and Oncology 11/04/19 Issa Baird MD [address] [address] Referring Physician Hematology 12/25/23 documented as of this encounter
--- OUTSIDE RECORDS SUMMARY | 2024-08-19 08:47 | XMS_ITS | Encounter Summary ---
Author Organization [facility] Induction Manager [facility] Address [address] [place] [address] Care Team Providers Care Forge Shop Supervisor Name Role Phone Jhony Robledo MD Primary Care Provider [phone] Encounter Details Date Type Department Care Team (Late Contact Info) Description 08/19/2024 Orders Only [facility] Oncology and Hematology [facility] [address] [place] [address] Issa Baird MD [address] [facility] [employer] [address] [place] [address] Malignant neoplasm of breast in female, [...] Sex Female 2:51 PM CDT Gender Identity Female 06/13/2024 10:42 AM SPEEDER HAND Sexual Orientation Not on file documented as of this encounter Plan of Treatment Upcoming Encounters Date Type Department Care Team (Late Contact Info) Description 08/29/2024 9:30 AM CDT Office Visit [facility] Oncology and Hematology - [place] [address] [place] [address] Mackenzie Robles MD [address] [place] [address] documented as of this encounter Visit Diagnoses Diagnosis Malignant neoplasm of breast in female, estrogen receptor positive, unspecified laterality, unspecified site of breast (CMS/HCC) documented in this encounter Care Teams Forge Shop Supervisor Relationship Specialty Start Date End Date Jhony Robledo MD [address] [place] [address] PCP - General Family Practice 09/19/19 documented as of this encounter
--- OUTSIDE RECORDS SUMMARY | 2024-08-19 08:47 | XMS_ITS | Clinical Summary ---
Author Organization [facility] Address [address] [place] [address] Care Team Providers Care Master Mechanic Name Role Phone Jhony Robledo MD Primary Care Provider [phone] Rebel Shields MD Unavailable [phone] Issa Baird MD Unavailable [phone] Allergies No known active allergies Medications [...] (01/23/2019): Added automatically from request for surgery [id number] Absolute anemia 01/22/2019 Right lower quadrant abdominal [...] (01/05/2018): Added automatically from request for surgery [id number] Hemorrhage of rectum and anus 05/15/2014 Overview (08/12/2016): Hemorrhage of rectum and anus Immunizations Immunization Administration Dates Next Due Influenza, Quadrivalent, Spl [...] on file 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 Gender Identity Not on file Sexual Orientation [...] Last Done Comments Hepatitis C Screening 1975 DTaP/Tdap/Td Vaccine (1 - Tdap) 1986 Hepatitis B Screening 1993 Regular Well Visit/Exam 18-64 1993 Pneumococcal vaccine <65 (1 of 2 - PCV) 1994 Zoster Vaccine (1 of 2) 1994 Breast Cancer Screening-Mammogram 08/08/2013 013 Depression Screening 01/23/2020 01/22/2019 Influenza Vaccine (Season Ended) 2025 03/13/2015, 02/21/2014, 05/22/2013 Colon Cancer Screening-Colonoscopy 02/05/20292018, 06/03/2014 Procedures Procedure Name Priority Date/Time Associated Diagnosis Comments COLONOSCOPY 02/05/2019 11:42 AM CDT DIGITAL MAMMOGRAPHY Routine 08/08/2012 3 :54 PM CDT from Last 3 Months or Most Recently Relevant to Health Maintenance Results * COLONOSCOPY (02/05/2019 11:42 AM CDT) Anatomical Region Laterality Modality Other Narrative Procedure Note Albert Meza MD - 02/05/2019 11:42 AM CDT [facility] Patient Name: Christiane [...] for screeningpurposes. Procedure Code(s): --- Professional --- 30650, Colonoscopy, flexible; diagnostic, including collection of specimen(s) by brushing or washing,when performed (separate procedure) Diagnosis Code(s): --- Professional --- R10.31, Right lower quadrant pain D64.9, Anemia, unspecified K57.30, Diverticulosis of large intestine without perforation or abscess without bleeding CPT copyright 2017 [employer]. All rights reserved. The codes documented in this report are preliminary and upon six color press operator reviewmay be revised to meet current compliance [...] ACCESS CHOICE ANTHEM ACCESS CHOICE Care Teams Master Mechanic Relationship Specialty Start Date End Date Jhony Robledo MD [address] [place], [place] [phone] PCP - General 12/22/17 Rebel Shields MD [address] [place] [address] Medical Oncologist/Hematologis t Hematology and Oncology 11/04/19 Issa Baird MD [address] [address] Referring Physician Hematology 12/25/23
--- OUTSIDE RECORDS SUMMARY | 2024-08-19 08:47 | XMS_ITS | Clinical Summary ---
Author Organization [facility] Raheem Gongora Address [address] [place] [address] Care Team Providers Care Clinical Documentation Spec Name Role Phone Jhony Robledo MD Primary [...] Encounters Date Type Department Care Team Description 08/19/2024 Orders Only [facility] Oncology and Hematology - [place] [address] [place] [phone] Issa Baird MD Malignant neoplasm of breast in female, estrogen receptor positive, unspecified laterality, unspecified site of breast (CMS/HCC) 08/05/2024 Orders Only [facility] Oncology and Hematology - [place] [address] [place] [address] Issa Baird MD Malignant neoplasm of breast in female, estrogen receptor positive, unspecified laterality, unspecified site of breast (CMS/HCC) 08/02/2024 9:00 AM CDT Office Visit [facility] Oncology and Hematology - [place] [address] [place] [address] Issa Baird MD Malignant neoplasm of breast in female, estrogen receptor positive, unspecified laterality, unspecified site of breast (CMS/HCC) (Primary Dx) 08/02/2024 Orders Only [facility] Oncology and Hematology - [place] [address] [place] [phone] Issa Baird MD 07/31/2024 Telephone [facility] Oncology and Hematology - [place] [address] [place] [address] Issa Baird MD Lab Results 07/30/2024 Orders Only [facility] Oncology and Hematology - [place] [address] [place] [address] Issa Baird MD 07/24/2024 External Device Data STL ABSTRACTION Provider, Abstract 07/22/2024 Orders Only [facility] Oncology and Hematology - [place] [address] [place] [address] Issa Baird MD Malignant neoplasm of breast in female, estrogen receptor positive, unspecified laterality, unspecified site of breast (CMS/HCC) 07/13/2024 External Device Data STL ABSTRACTION Provider, Abstract 07/12/2024 8:30 AM PROCESS DESIGN ENGINEER Office Visit [facility] Oncology and Hematology - [place] [address] [place] [phone] Issa Baird MD Malignant neoplasm of breast in female, estrogen receptor positive, unspecified laterality, unspecified site of breast (CMS/HCC) (Primary Dx) 07/12/2024 External Device Data STL ABSTRACTION Provider, Abstract 07/12/2024 Orders Only [facility] Oncology and Hematology - [place] [address] Issa Baird MD 07/10/2024 External Device Data STL ABSTRACTION Provider, Abstract 07/08/2024 Orders Only [facility] Oncology and Hematology - [place] [id number] Issa Baird MD Malignant neoplasm of breast in female, estrogen receptor positive, unspecified laterality, unspecified site of breast (CMS/HCC) 06/26/2024 External Device Data STL ABSTRACTION Provider, Abstract 06/24/2024 Orders Only [facility] Oncology and Hematology - [place] [address] [place] [phone] Issa Baird MD Malignant neoplasm of breast in female, estrogen receptor positive, unspecified laterality, unspecified site of breast (CMS/HCC) 06/20/2024 8:45 AM PROCESS DESIGN ENGINEER Office Visit [facility] Oncology and Hematology - [place] [address] [place] [address] Issa Baird MD Malignant neoplasm of breast in female, estrogen receptor positive, unspecified laterality, unspecified site of breast (CMS/HCC) (Primary Dx); Dyspnea, unspecified type 06/10/2024 Orders Only [facility] Oncology and Hematology - [place] [address] [place] [address] Issa Baird MD Malignant neoplasm of breast in female, estrogen receptor positive, unspecified laterality, unspecified site of breast (CMS/HCC) 06/06/2024 Orders Only [facility] Oncology and Hematology - [place] [address] [place] [address] Issa Baird MD Encounter for antineoplastic chemotherapy (Primary Dx) 06/04/2024 Orders Only [facility] Oncology and Hematology [facility] [address] [place] [address] Issa Baird MD Malignant neoplasm of breast in female, estrogen receptor positive, unspecified laterality, unspecified site of breast (CMS/HCC) (Primary Dx) 06/03/2024 Orders Only [facility] Oncology and Hematology [facility] [address] [place] [address] Issa Baird MD 05/29/2024 External Device Data STL ABSTRACTION Provider, Abstract 05/27/2024 Orders Only [facility] Oncology and Hematology [facility] [address] [place] [address] Issa Baird MD Malignant neoplasm [...] CDT Gender Identity Female 06/13/2024 10:42 AM PROCESS DESIGN ENGINEER Sexual Orientation Not on file Last Filed Vital Signs Vital Sign Reading Time Taken Comments Blood Pressure 105/70 08/02/2024 8:56 AM CDT Pulse 101 08/02/2024 8:56 AM CDT Temperature 35.6 C (96.1 F) 08/02/2024 8:56 AM CDT Respiratory Rate 16 08/02/2024 8:56 AM CDT Oxygen Saturation 96% 08/02/2024 8:56 AM CDT Inhaled Oxygen Concentration - - Weight 74.5 kg (164 lb 3.2 oz) 08/02/2024 8:56 A M CDT Height 165.1 cm (5' 5 ) 12/31/2021 8:26 AM CDT Body Mass Index 27.32 12/31/2021 8:26 AM CDT Plan of Treatment Upcoming Encounters Date Type Department Care Team (Late st Contact Info) Description 08/29/2024 9:30 AM CDT Office Visit [facility] Oncology and Hematology [facility] [address] [place] [address] Mackenzie Robles MD [address] [place] [address] Health Maintenance Due Date Last Done Comments Pre-Diabetes and Diabetes Screening 1975 DTAP/TDAP/TD VACCINES (1 - Tdap) 1994 HEPATITIS B VACCINES (1 of 3 - 19+ 3-dose series) 1994 HPV/Cotest (21-29) 1996 CERVICAL CANCER SCREENING 2005 HPV/Cotest (30-65) 2005 PAP SMEAR 2005 BREAST CANCER SCREENING 2015 08/08/2012 FIT-DNA Q 3 years 2020 FIT/FOBT Q 1 year 2020 Flex Sig/CT Colonography Q 5 years 2020 INFLUENZA VACCINE (#1) 2023 03/13/2015, 2013 Preventative Visit- Commercial 05/08/2024 COLORECTAL SCREENING 02/05/2029 02/05/2019, 02/06/20 19 Colorectal Cancer Screening 02/05/2029 Procedures Procedure Name Priority Date/Time Associated Diagnosis Comments BASIC METABOLIC PANEL Routine 08/02/2024 1:25 PM CDT COMPREHENSIVE METABOLIC PANEL Routine 08/02/2024 1:20 PM CDT CANCER ANTIGEN 15-3 Routine 07/26/2024 3 :36 PM CDT COMPREHENSIVE METABOLIC PANEL Routine 07/12/2024 1:00 PM PROCESS DESIGN ENGINEER CBC WITH AUTODIFFERENTIAL Routine 2024 11:09 AM PROCESS DESIGN ENGINEER CHG CA 15 3 Routine 07/05/2024 10:00 AM PROCESS DESIGN ENGINEER NM BONE SCAN WHOLE BODY Routine 06/03/19 2:45 [address] CHEST ABDOMEN PELVIS W CONT Routine 06/03/2024 12:04 PM PROCESS DESIGN ENGINEER BASIC METABOLIC PANEL Routine 05/31/2024 1:16 PM PROCESS DESIGN ENGINEER COMPREHENSIVE METABOLIC PANEL Routine 05/31/2024 1:13 PM PROCESS DESIGN ENGINEER CBC WITH AUTODIFFERENTIAL Routine 2024 1:04 PM PROCESS DESIGN ENGINEER from Last 3 Months Results * BASIC METABOLIC PANEL (08/02/2024 1:25 PM CDT) Only the most recent of2 resultswithin the time period is included. Blood us Issa Baird MD CHEMISTRY ORDERABLES Final Resu lt * COMPREHENSIVE METABOLIC PANEL (08/02/2024 1:20 PM CDT) Only the most recent of3 resultswithin the time period is included. Blood Result Oren Baird MD CHEMISTRY ORDERABLES Final Resu lt * CANCER ANTIGEN 15-3 (07/26/2024 3:36 PM CDT) Blood Result Oren Baird MD CHEMISTRY ORDERABLES Final Resu lt * CBC WITH AUTODIFFERENTIAL (07/12/2024 11:09 AM PROCESS DESIGN ENGINEER) Only the most recent of2 resultswithin the time period is included. Blood Result Oren Baird MD HEMATOLOGY ORDERABLES Final Res ult * CHG CA 15 3 (07/05/2024 10:00 AM PROCESS DESIGN ENGINEER) Result Oren Baird MD CHG - LABORATORY Final Result * NM BONE SCAN WHOLE BODY (06/03/2024 2:45 PM PROCESS DESIGN ENGINEER) Anatomical Region Laterality Modality Nuclear Medicine Result Oren Baird MD NM ORDERABLES Final Result * CT CHEST ABDOMEN PELVIS W CONT (06/03/2024 12:04 PM PROCESS DESIGN ENGINEER) Anatomical Region Laterality Modality Chest Computed Tomogra phy us Issa Baird MD CT ORDERABLES Final Result from Last 3 Months Insurance BLUE ACCESS CHOICE Care Teams Clinical Documentation Spec Relationship Specialty Start Date End Date Jhony Robledo MD [address] [place] [phone] PCP - General Family Practice 09/19/19
--- OUTSIDE RECORDS SUMMARY | 2024-08-19 08:47 | XMS_ITS | Referral Summary ---
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 Procedure Code(s): --- Professional --- 10721, Colonoscopy, flexible; diagnostic, including collection of specimen(s) by brushing or washing,when performed (separate procedure) Diagnosis Code(s): --- Professional --- R10.31, Right lower quadrant pain D64.9, Anemia, unspecified K57.30, Diverticulosis of large intestine without perforation or abscess without bleeding CPT copyright 2017 [employer]. All rights reserved. The codes documented in this report are preliminary and upon hcc coders reviewmay be revised to meet current compliance [...] ACCESS CHOICE ANTHEM ACCESS CHOICE Care Teams Head Of Housekeeping Relationship Specialty Start Date End Date Jhony Robledo MD [address] [place], [place] [phone] PCP - General 12/22/17 Rebel Shields MD [address] [place] [address] Medical Oncologist/Hematologis t Hematology and Oncology 11/04/19 Issa Baird MD [address] [phone] Referring Physician Hematology 12/25/23
--- OUTSIDE RECORDS SUMMARY | 2024-08-19 08:47 | XMS_ITS | Encounter Summary ---
Author Organization [facility] Address [address] [place] [address] Phone Care Team Providers Care Account Manager Education Name Role Phone Oksana Heath MD Primary Care Provider + Jhony Robledo MD Primary Care Provider [phone] Oksana Heath MD Primary Care Provider + Jhony Robledo MD Primary Care Provider [phone] Rebel Shields MD Unavailable [phone] Issa Baird MD Unavailable [phone] Encounter Details Date Type Department Care Team (Late st Contact Info) Description 07/07/2017 Orders Only [facility] ProviderBartolo MD [address] [place] [address] Social History Tobacco Use Types Packs/Day Years Used Date Smoking Tobacco: Never Smokeless Tobacco: Never Alcohol Use Standard Drinks/Week Comments Yes 0 (1 standard drink = 0.6 oz pur e alcohol) Comments No Sex and Gender Information Value Date Recorded Sex Assigned at Not on file Legal Sex Female 3:06 AM SOCIAL WELFARE RESEARCH WORKER Gender Identity Not on file Sexual Orientation [...] on filedocumented in this encounter Care Teams Account Manager Education Relationship Specialty Start Date End Date Oksana Heath MD [address] [place] [address] PCP - General 06/16/17 08/24/17 Jhony Robledo MD [address] [place] [address] PCP - General 08/25/17 09/07/17 Oksana Heath MD [address] [place] [address] PCP - General Gynecology 09/08/17 12/21/17 Jhony Robledo MD [address] [place] [address] PCP - General 12/22/17 Rebel Shields MD [address] [place] [address] Medical Oncologist/Hematologis t Hematology and Oncology 11/04/19 Issa Baird MD [address] [place] [address] Referring Physician Hematology 12/25/23 documented as of this encounter
--- OUTSIDE RECORDS SUMMARY | 2024-08-19 08:47 | XMS_ITS ---
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 Past Treatment and Therapy Plans
== END 2024-08-19 08:28 | disposition home or self-care (01) ==
PROVIDERS: PCP Family Medicine; Visit Provider Internal Medicine Hematology & Oncology
DX: C50.019 Malignant neoplasm of nipple and areola, unspecified female breast (principal); Z17.0 Estrogen receptor positive status [ER+]
CPT/HCPCS: 78306; A9503

== ENCOUNTER 2024-08-22 09:26 | Outpatient (CLI) | payer BC, SELFPAY ==
--- NOTE | ~2024-08-22 | PE_ITS ---
EXAMINATION: PET skull to mid thigh DATE: 08/22/2024 11:19 INDICATION: Breast cancer TECHNIQUE: Blood glucose level was 91 mg/dL. 9.925 mCi of 18-fluorodeoxyglucose (18-FDG) was administ ered i.v. Low dose computed tomography (CT) images were acquired from the base of the brain to the pr oximal thighs for attenuation correction and anatomic localization. Positron emission tomography (PET ) images were acquired in the same distribution beginning 64 minutes after injection. Images includin g fused PET/CT images were reconstructed in axial, coronal, and sagittal planes. Automated exposure c ontrol technique was employed. The dose-length product was 843.90mGy-cm. COMPARISON: 12/21/2023 FINDINGS: Head/neck: There is symmetric increased activity in the oral cavity, palatine tonsils, parotid glands, submandi bular glands, laryngeal muscles and ocular muscles without CT correlate, likely physiologic. There is a 1.4 x 1.1 cm FDG avid lobular soft tissue nodule in the subcutaneous fat overlying the C7 spinous process with maximal SUV of 4.0. No pathologically enlarged cervical lymphadenopathy or other 0suspic ious foci of increased FDG uptake in the visualized head or neck. Chest: Right internal jugular central venous port catheter with distal tip at the high right atrium. Postope rative change of bilateral mastectomies and left axillary lymph node dissection. The prior markedly F DG avid nodular pleural thickening in the right hemithorax and associated small right pleural effusio n have resolved. There is some minimal residual smooth thickening of the fourth the junction of the r ight major and minor fissures without discrete nodularity or FDG uptake. Mild linear discoid atelecta sis at the basilar right lower lobe. No suspicious pulmonary nodules, pneumonia, pulmonary edema or p leural effusion. Heart size is normal. No pericardial effusion. Thoracic aorta is normal in caliber. No pathologically enlarged or FDG avid thoracic lymphadenopathy. Abdomen/pelvis/proximal thighs: Physiologic renal accumulation and excretion of FDG activity in the kidneys, bladder and along portio ns of ureters. Unchanged 1.4 cm cyst in the left hepatic lobe. There has been significant decrease in size of a 4 smaller and more subtle hypodense hepatic lesions which previously demonstrated increase d FDG uptake consistent with interval regression of treated metastatic disease. The majority of the p erihepatic foci of increased uptake seen on the prior study appear to have represented now resolved p leural metastatic disease. The gallbladder, pancreas, spleen and bilateral adrenal glands are normal. Mild uptake scattered throughout the bowels without radiologic correlate, also likely physiologic. N o other abnormal foci of increased FDG uptake or pathologically enlarged lymphadenopathy in the abdom en, pelvis or proximal thighs. Musculoskeletal: Marked interval decrease in previously prominent FDG uptake associated with multiple previously predo minantly lytic in now increasingly sclerotic bone lesions consistent with treated metastatic disease. For reference maximal SUV of the lesion occupying the majority the T9 vertebral body has decreased f rom 12.4 to currently 3.6. The maximal SUV of the lesion at the right humeral neck has decreased from 10.5-2.1. IMPRESSION: 1. Marked decrease in size and normalization of FDG uptake associated with the widespread nodular rig ht pleural based metastatic disease, a few scattered hepatic nodules and multiple scattered bone lesi ons consistent with response to treatment. 2. Single indeterminate new 1.4 cm FDG avid subcutaneous soft tissue nodule posterior to the C7 spino us process. This would be an atypical site for metastatic disease particularly in the setting of othe rwise treatment responsive disease. Could consider ultrasound-guided core needle biopsy for more defi nitive determination. Reviewed, dictated and finalized at location A. IMPRESSION: 1. Marked decrease in size and normalization of FDG uptake associated with the widespread nodular right pleural based metastatic disease, a few scattered hepa tic nodules and multiple scattered bone lesions consistent with response to john atment. 2. Single indeterminate new 1.4 cm FDG avid subcutaneous soft tissue nodule pos terior to the C7 spinous process. This would be an atypical site for metastatic disease particularly in the setting of otherwise treatment responsive disease. Could consider ultrasound-guided core needle biopsy for more definitive determ ination.
[2024-08-22 09:54] LABS: Glucose Point of Care 97 mg/dl (65-105)
--- OUTSIDE RECORDS SUMMARY | 2024-08-22 10:01 | XMS_ITS | Referral Summary ---
Author Organization [facility] Address [address] [place] [address] Care Team Providers Care Echocardiograph Technician Name Role Phone Jhony Robledo MD Primary Care Provider [phone] Rebel Shields MD Unavailable [phone] Issa Baird MD Unavailable [phone] Allergies No known active allergies Medications [...] (01/23/2019): Added automatically from request for surgery [id number] Absolute anemia 01/22/2019 Right lower quadrant abdominal [...] (01/05/2018): Added automatically from request for surgery [id number] Hemorrhage of rectum and anus 05/15/2014 Overview [...] on file 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 Procedure Code(s): --- Professional --- 82452, Colonoscopy, flexible; diagnostic, including collection of specimen(s) by brushing or washing,when performed (separate procedure) Diagnosis Code(s): --- Professional --- R10.31, Right lower quadrant pain D64.9, Anemia, unspecified K57.30, Diverticulosis of large intestine without perforation or abscess without bleeding CPT copyright 2017 [employer]. All rights reserved. The codes documented in this report are preliminary and upon military technology specialist reviewmay be revised to meet current compliance [...] ACCESS CHOICE ANTHEM ACCESS CHOICE Care Teams Echocardiograph Technician Relationship Specialty Start Date End Date Jhony Robledo MD [address] [place], [place] [address] PCP - General 12/22/17 Rebel Shields MD [address] [place] [address] Medical Oncologist/Hematologis t Hematology and Oncology 11/04/19 Issa Baird MD [address] [phone] Referring Physician Hematology 12/25/23
--- OUTSIDE RECORDS SUMMARY | 2024-08-22 10:01 | XMS_ITS | Encounter Summary ---
Author Organization [facility] Address [address] [place] [address] Phone Care Team Providers Care Behavior Support Specialist Name Role Phone Oksana Heath MD Primary Care Provider + Jhony Robledo MD Primary Care Provider [phone] Oksana Heath MD Primary Care Provider + Jhony Robledo MD Primary Care Provider [phone] Rebel Shields MD Unavailable [phone] Issa Baird MD Unavailable [phone] Encounter Details Date Type Department Care Team (Late st Contact Info) Description 07/07/2017 Orders Only [facility] ProviderBartolo MD [address] [place] [address] Social History Tobacco Use Types Packs/Day Years Used Date Smoking Tobacco: Never Smokeless Tobacco: Never Alcohol Use Standard Drinks/Week Comments Yes 0 (1 standard drink = 0.6 oz pur e alcohol) Comments No Sex and Gender Information Value Date Recorded Sex Assigned at Not on file Legal Sex Female 3:06 AM DIRECTOR OF EVENT MANAGEMENT Gender Identity Not on file Sexual Orientation [...] on filedocumented in this encounter Care Teams Behavior Support Specialist Relationship Specialty Start Date End Date Oksana Heath MD [address] [place] [address] PCP - General 06/16/17 08/24/17 Jhony Robledo MD [address] [place] [address] PCP - General 08/25/17 09/07/17 Oksana Heath MD [address] [place] [address] PCP - General Gynecology 09/08/17 12/21/17 Jhony Robledo MD [address] [place] [address] PCP - General 12/22/17 Rebel Shields MD [address] [place] [address] Medical Oncologist/Hematologis t Hematology and Oncology 11/04/19 Issa Baird MD [address] [place] [address] Referring Physician Hematology 12/25/23 documented as of this encounter
--- OUTSIDE RECORDS SUMMARY | 2024-08-22 10:01 | XMS_ITS | Clinical Summary ---
Author Organization [facility] Address [address] [place] [address] Care Team Providers Care Director Outpatient Services Name Role Phone Jhony Robledo MD Primary Care Provider [phone] Rebel Shields MD Unavailable Issa Baird MD Unavailable [phone] Allergies No known active allergies Medications [...] (01/23/2019): Added automatically from request for surgery [id number] Absolute anemia 01/22/2019 Right lower quadrant abdominal [...] (01/05/2018): Added automatically from request for surgery [id number] Hemorrhage of rectum and anus 05/15/2014 Overview [...] on file Legal Sex Female 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 Procedure Code(s): --- Professional --- 64731, Colonoscopy, flexible; diagnostic, including collection of specimen(s) by brushing or washing,when performed (separate procedure) Diagnosis Code(s): --- Professional --- R10.31, Right lower quadrant pain D64.9, Anemia, unspecified K57.30, Diverticulosis of large intestine without perforation or abscess without bleeding CPT copyright 2017 [employer]. All rights reserved. The codes documented in this report are preliminary and upon certified coder reviewmay be revised to meet current [...] CHOICE ANTHEM ACCESS CHOICE Care Teams Director Outpatient Services Relationship Specialty Start Date End Date Jhony Robledo MD [address] [place], [place] [address] PCP - General 12/22/17 Rebel Shields MD [address] [place] [address] Medical Oncologist/Hematologis t Hematology and Oncology 11/04/19 Issa Baird MD [address] [address] Referring Physician Hematology 12/25/23
--- OUTSIDE RECORDS SUMMARY | 2024-08-22 10:01 | XMS_ITS | Encounter Summary ---
Author Organization [facility] [employer] [facility] Address [address] [place] [address] Care Team Providers Care Database Specialist Name Role Phone Jhony Robledo MD Primary Care Provider Encounter Details Date Type Department Care Team (Late Contact Info) Description 08/19/2024 Orders Only [facility] Oncology and Hematology [facility] [address] [place] [address] Issa Baird MD [address] [facility] [employer] [address] [place] [address] Malignant neoplasm of breast in [...] CDT Gender Identity Female 06/13/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 Sexual Orientation Not on file documented as of this encounter Plan of Treatment Upcoming Encounters Date Type Department Care Team (Late Contact Info) Description 08/29/2024 9:30 AM CDT Office Visit [facility] Oncology and Hematology - [place] [address] [place] [address] Mackenzie Robles MD [address] [place] [address] documented as of this encounter Visit Diagnoses Diagnosis Malignant neoplasm of breast in female, estrogen receptor positive, unspecified laterality, unspecified site of breast (CMS/HCC) documented in this encounter Care Teams Database Specialist Relationship Specialty Start Date End Date Jhony Robledo MD [address] [place] [address] PCP - General Family Practice 09/19/19 documented as of this encounter
--- OUTSIDE RECORDS SUMMARY | 2024-08-22 10:01 | XMS_ITS | Encounter Summary ---
Author Organization 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 Gender Identity Not on file Sexual Orientation Not on file documented as of this encounter Plan of Treatment Not on file documented as of this encounter Visit Diagnoses Not on filedocumented in this encounter Care Teams Delivery Lead Relationship Specialty Start Date End Date Jhony Robledo MD [address] [place] [address] PCP - General 12/22/17 Rebel Shields MD [address] [place] [address] Medical Oncologist/Hematologis t Hematology and Oncology 11/04/19 Issa Baird MD [address] [address] Referring Physician Hematology 12/25/23 documented as of this encounter
--- OUTSIDE RECORDS SUMMARY | 2024-08-22 10:01 | XMS_ITS | Clinical Summary ---
Author Organization [facility] [employer] Address [address] [place] [address] Care Team Providers Care Commercial Development Manager Name Role Phone Jhony Robledo MD Primary [...] Encounters Date Type Department Care Team Description 08/20/2024 External Device Data STL ABSTRACTION Provider, Abstract 08/20/2024 Orders Only [facility] Oncology and Hematology - [place] [address] [place] [phone] Issa Baird MD 08/19/2024 Orders Only [facility] Oncology and Hematology - [place] [address] [place] [address] Issa Baird MD Malignant neoplasm of breast in female, estrogen receptor positive, unspecified laterality, unspecified site of breast (CMS/HCC) 08/05/2024 Orders Only [facility] Oncology and Hematology - [place] [address] [place] [address] Issa Baird MD Malignant neoplasm of breast in female, estrogen receptor positive, unspecified laterality, unspecified site of breast (CMS/HCC) 08/02/2024 9:00 AM CDT Office Visit [facility] Oncology and Hematology - [place] [address] [place] [address] Issa Baird MD Malignant neoplasm of breast in female, estrogen receptor positive, unspecified laterality, unspecified site of breast (CMS/HCC) (Primary Dx) 08/02/2024 Orders Only [facility] Oncology and Hematology - [place] [address] [place] [address] Issa Baird MD 07/31/2024 Telephone [facility] Oncology and Hematology - [place] [address] [place] [address] Issa Baird MD Lab Results 07/30/2024 Orders Only [facility] Oncology and Hematology - [place] [address] [place] [address] Issa Baird MD 07/24/2024 External Device Data STL ABSTRACTION Provider, Abstract 07/22/2024 Orders Only [facility] Oncology and Hematology - [place] [address] [place] [address] Issa Baird MD Malignant neoplasm of breast in female, estrogen receptor positive, unspecified laterality, unspecified site of breast (CMS/HCC) 07/13/2024 External Device Data STL ABSTRACTION Provider, Abstract 07/12/2024 8:30 AM MEATMAN Office Visit [facility] Oncology and Hematology [facility] [address] [place] [phone] Issa Baird MD Malignant neoplasm of breast in female, estrogen receptor positive, unspecified laterality, unspecified site of breast (CMS/HCC) (Primary Dx) 07/12/2024 External Device Data STL ABSTRACTION Provider, Abstract 07/12/2024 Orders Only [facility] Oncology and Hematology - [place] [address] [place] [address] Issa Baird MD 07/10/2024 External Device Data STL ABSTRACTION Provider, Abstract 07/08/2024 Orders Only [facility] Oncology and Hematology - [place] [address] [place] [address] Issa Baird MD Malignant neoplasm of breast in female, estrogen receptor positive, unspecified laterality, unspecified site of breast (CMS/HCC) 06/26/2024 External Device Data STL ABSTRACTION Provider, Abstract 06/24/2024 Orders Only [facility] Oncology and Hematology - [place] [address] [place] [address] Issa Baird MD Malignant neoplasm of breast in female, estrogen receptor positive, unspecified laterality, unspecified site of breast (CMS/HCC) 06/20/2024 8:45 AM MEATMAN Office Visit [facility] Oncology and Hematology - [place] [address] [place] [address] Issa Baird MD Malignant neoplasm of breast in female, estrogen receptor positive, unspecified laterality, unspecified site of breast (CMS/HCC) (Primary Dx); Dyspnea, unspecified type 06/10/2024 Orders Only [facility] Oncology and Hematology - [place] [address] [place] [address] Issa Baird MD Malignant neoplasm of breast in female, estrogen receptor positive, unspecified laterality, unspecified site of breast (CMS/HCC) 06/06/2024 Orders Only [facility] Oncology and Hematology [place] [address] [address] [place] [phone] Issa Baird MD Encounter for antineoplastic chemotherapy (Primary Dx) 06/04/2024 Orders Only [facility] Oncology and Hematology [place] [address] [address] [place] [address] Issa Baird MD Malignant neoplasm of breast in female, estrogen receptor positive, unspecified laterality, unspecified site of breast (CMS/HCC) (Primary Dx) 06/03/2024 Orders Only [facility] Oncology and Hematology [place] [address] [address] [place] [address] Issa Baird MD 05/29/2024 External Device Data STL ABSTRACTION Provider, Abstract 05/27/2024 Orders Only [facility] Oncology and Hematology [place] [address] [address] [place] [address] Issa Baird MD Malignant neoplasm of breast [...] CDT Gender Identity Female 06/13/2024 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 Sexual Orientation Not on file Last Filed [...] Description 08/29/2024 9:30 AM CDT Office Visit [facility] Oncology and Hematology - [place] [address] [place] [address] Mackenzie Robles MD [address] [place] [address] Health Maintenance Due Date Last [...] Comments NM BONE SCAN WHOLE BODY Routine 08/20/19 11:12 AM CDT BASIC METABOLIC PANEL Routine 08/02/2024 1:25 PM CDT COMPREHENSIVE METABOLIC PANEL Routine 08/02/2024 1:20 PM CDT CANCER ANTIGEN 15-3 Routine 07/26/2024 3 :36 PM CDT COMPREHENSIVE METABOLIC PANEL Routine 07/12/2024 1:00 PM MEATMAN CBC WITH AUTODIFFERENTIAL Routine 2024 11:09 AM MEATMAN CHG CA 15 3 Routine 07/05/2024 10:00 AM MEATMAN NM BONE SCAN WHOLE BODY Routine 06/03/19 2:[address] CHEST ABDOMEN PELVIS W CONT Routine 06/03/2024 12:04 PM MEATMAN BASIC METABOLIC PANEL Routine 05/31/2024 1:16 PM MEATMAN COMPREHENSIVE METABOLIC PANEL Routine 05/31/2024 1:13 PM MEATMAN CBC WITH AUTODIFFERENTIAL Routine 2024 1:04 PM MEATMAN from Last 3 Months Results * NM BONE SCAN WHOLE BODY (08/19/2024 11:12 AM CDT) Only the most recent of2 resultswithin the time period is included. Anatomical Region Laterality Modality Nuclear Medicine us Issa Baird MD NM ORDERABLES Final Result * BASIC METABOLIC PANEL (08/02/2024 1:25 PM [...] ANTIGEN 15-3 (07/26/2024 3:36 PM CDT) Blood us Issa Baird MD CHEMISTRY ORDERABLES Final Resu lt * CBC WITH AUTODIFFERENTIAL (07/12/2024 11:09 AM MEATMAN) Only the most recent of2 resultswithin the time period is included. Blood Issa Baird MD HEMATOLOGY ORDERABLES Final Res ult * CHG CA 15 3 (07/05/2024 10:00 AM MEATMAN) Isas Baird MD CHG - LABORATORY Final Result * CT CHEST ABDOMEN PELVIS W CONT (06/03/2024 12:04 PM MEATMAN) Anatomical Region Laterality Modality Chest Computed Tomogra phy Issa Baird MD CT ORDERABLES Final Result from Last 3 Months Insurance BLUE ACCESS CHOICE Care Teams Commercial Development Manager Relationship Specialty Start Date End Date Jhony Robledo MD [address] [place] [phone] PCP - General Family Practice 09/19/19
--- OUTSIDE RECORDS SUMMARY | 2024-08-22 10:01 | XMS_ITS | Encounter Summary ---
Author Organization [facility] Address [address] [place] [address] Care Team Providers Care Weighbridge Operator Name Role Phone Jhony Robledo MD Primary Care Provider [phone] Encounter Details Date Type Department Care Team (Late Contact Info) Description 08/20/2024 External Device Data STL ABSTRACTION Provider, Abstract NO ADDRESS ON FILE Social History Tobacco Use Types Packs/Day Years Used Date Smoking Tobacco: Never Smokeless Tobacco: Never Alcohol Use Standard Drinks/Week Comments Yes 0 (1 standard drink = 0.6 oz pur e alcohol) Comments Unknown Sex and Gender Information Value Date Recorded Sex Assigned at Not on file Legal Sex Female 2:51 PM CDT Gender Identity Female 06/13/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 Sexual Orientation Not on file documented as of this encounter Plan of Treatment Upcoming Encounters Date Type Department Care Team (Late Contact Info) Description 08/29/2024 9:30 AM CDT Office Visit [facility] Oncology and Hematology - [place] [address] [place] [address] Mackenzie Robles MD [address] [place] [address] documented as of this encounter Visit Diagnoses Not on filedocumented in this encounter Care Teams Weighbridge Operator Relationship Specialty Start Date End Date Jhony Robledo MD [address] [place] [phone] PCP - General Family Practice 09/19/19 documented as of this encounter
--- OUTSIDE RECORDS SUMMARY | 2024-08-22 10:01 | XMS_ITS ---
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 Past Treatment and Therapy Plans
--- OUTSIDE RECORDS SUMMARY | 2024-08-22 10:01 | XMS_ITS | Encounter Summary ---
Author Organization [facility] [email or web address] [facility] Address [address] [place] [address] Care Team Providers Care Assembly Machine Offbearer Name Role Phone Jhony Robledo MD Primary Care Provider Encounter Details Date Type Department Care Team ([facility] Contact Info) Description 08/20/2024 Orders Only [facility] Oncology and Hematology [place] [address] [place] [address] Issa Baird MD [address] [facility] [address] [place] [address] Social History Tobacco Use Types Packs/Day Years Used Date Smoking Tobacco: Never Smokeless Tobacco: Never Alcohol Use Standard Drinks/Week Comments Yes 0 (1 standard drink = 0.6 oz pur e alcohol) Comments Unknown Sex and Gender Information Value Date Recorded Sex Assigned at Not on file Legal Sex Female 2:51 PM CDT Gender Identity Female 06/13/2024 10:42 AM [facility] [employer] Sexual Orientation Not on file documented as of this encounter Plan of Treatment Upcoming Encounters Date Type Department Care Team ([facility] Contact Info) Description 08/29/2024 9:30 AM CDT Office Visit [facility] Oncology and Hematology - [place] [address] [place] [address] Mackenzie Robles MD [address] [place] [address] documented as of this encounter Procedures Procedure Name Priority Date/Time Associated Diagnosis Comments NM BONE SCAN WHOLE BODY Routine 08/19/2024 11:12 AM CDT documented in this encounter Results * NM BONE SCAN WHOLE BODY (08/19/2024 11:12 AM CDT) Anatomical Region Laterality Modality Nuclear Medicine Issa Baird MD NM ORDERABLES Final Result documented in this encounter Visit Diagnoses Not on filedocumented in this encounter Care Teams Assembly Machine Offbearer Relationship Specialty Start Date End Date Jhony Robledo MD [address] [place] [address] PCP - General Family Practice 09/19/19 documented as of this encounter
== END 2024-08-22 09:27 | disposition home or self-care (01) ==
PROVIDERS: PCP Family Medicine; Visit Provider Internal Medicine Hematology & Oncology
DX: C50.919 Malignant neoplasm of unspecified site of unspecified female breast (principal); Z17.0 Estrogen receptor positive status [ER+]
CPT/HCPCS: 78815; A9552

== ENCOUNTER 2024-09-12 12:26 | Outpatient (CLI) | payer BC, SELFPAY ==
--- OUTSIDE RECORDS SUMMARY | 2024-09-12 12:31 | XMS_ITS | Clinical Summary ---
Author Organization [facility] Address [address] [place] [address] Care Team Providers Care Horticulturalist Name Role Phone Jhony Robledo MD Primary [...] Encounters Date Type Department Care Team Description 09/02/2024 Orders Only [facility] Oncology and Hematology - [place] [address] [place] [id number] Issa Baird MD Malignant neoplasm of breast in female, estrogen receptor positive, unspecified laterality, unspecified site of breast (CMS/HCC) 08/29/2024 9:30 AM CDT Office Visit [facility] Oncology and Hematology - [place] [address] [place] [address] Mackenzie Robles MD Malignant neoplasm of breast in female, estrogen receptor positive, unspecified laterality, unspecified site of breast (CMS/HCC) (Primary Dx) 08/26/2024 Orders Only [facility] Oncology and Hematology - [place] [address] [place] [id number] Issa Baird MD 08/23/2024 Orders Only [facility] Oncology and Hematology - [place] [address] [place] [address] Issa Baird MD 08/20/2024 External Device Data STL ABSTRACTION Provider, Abstract 08/20/2024 Orders Only [facility] Oncology and Hematology - [place] [address] [place] [address] Issa Baird MD 08/19/2024 Orders Only [facility] Oncology and Hematology - [place] [address] [place] [address] Issa Baird MD Malignant neoplasm of breast in female, estrogen receptor positive, unspecified laterality, unspecified site of breast (CMS/HCC) 08/05/2024 Orders Only [facility] Oncology and Hematology - [place] [address] [place] [address] Issa Baird MD Malignant neoplasm of breast in female, estrogen receptor positive, unspecified laterality, unspecified site of breast (CMS/HCC) 08/02/2024 9:00 AM CDT Office Visit [facility] Oncology and Hematology - [place] [address] [place] [address] Issa Baird MD Malignant neoplasm of breast in female, estrogen receptor positive, unspecified laterality, unspecified site of breast (CMS/HCC) (Primary Dx) 08/02/2024 Orders Only [facility] Oncology and Hematology - [place] [address] [place] [id number] Issa Baidr MD 07/31/2024 Telephone [facility] Oncology and Hematology - [place] [address] [place] [phone] Issa Baird MD Lab Results 07/30/2024 Orders Only [facility] Oncology and Hematology - [place] [address] [place] [phone] Issa Baird MD 07/24/2024 External Device Data STL ABSTRACTION Provider, Abstract 07/22/2024 Orders Only [facility] Oncology and Hematology - [place] [address] [place] [id number] Issa Baird MD Malignant neoplasm of breast in female, estrogen receptor positive, unspecified laterality, unspecified site of breast (CMS/HCC) 07/13/2024 External Device Data STL ABSTRACTION Provider, Abstract 07/12/2024 8:30 AM AWAKE OVERNIGHT MONITOR Office Visit [facility] Oncology and Hematology [facility] [address] [place] [address] Issa Baird MD Malignant neoplasm of breast in female, estrogen receptor positive, unspecified laterality, unspecified site of breast (CMS/HCC) (Primary Dx) 07/12/2024 External Device Data STL ABSTRACTION Provider, Abstract 07/12/2024 Orders Only [facility] Oncology and Hematology - [place] [address] [place] [address] Issa Baird MD 07/10/2024 External Device Data STL ABSTRACTION Provider, Abstract 07/08/2024 Orders Only [facility] Oncology and Hematology - [place] [address] [place] [id number] Issa Baird MD Malignant neoplasm of breast in female, estrogen receptor positive, unspecified laterality, unspecified site of breast (CMS/HCC) 06/26/2024 External Device Data STL ABSTRACTION Provider, Abstract 06/24/2024 Orders Only [facility] Oncology and [facility] [address] [place] [address] Issa Baird MD Malignant neoplasm of breast in female, estrogen receptor positive, unspecified laterality, unspecified site of breast (CMS/HCC) 06/20/2024 8:45 AM AWAKE OVERNIGHT MONITOR Office Visit [facility] Oncology and Hematology [facility] [address] [place] [address] Issa Baird MD Malignant neoplasm of breast in female, estrogen receptor positive, unspecified laterality, unspecified site of breast ([facility]/HCC) (Primary Dx); Dyspnea, unspecified type from Last 3 Months Family History Medical [...] CDT Gender Identity Female 06/13/2024 10:42 AM AWAKE OVERNIGHT MONITOR Sexual Orientation Not on file Last Filed Vital Signs Vital Sign Reading Time Taken Comments Blood Pressure 103/61 08/29/2024 9:33 AM CDT Pulse 85 08/29/2024 9:33 AM CDT Temperature 36.4 C (97.6 F) 08/29/2024 9:33 AM CDT Respiratory Rate 16 08/29/2024 9:33 AM CDT Oxygen Saturation 97% 08/29/2024 9:33 AM CDT Inhaled Oxygen Concentration - - Weight 75.8 kg (167 lb) 08/29/2024 9:33 AM CDT Height 165.1 cm (5' 5 ) 12/31/2021 8:26 AM CDT Body Mass Index 27.79 12/31/2021 8:26 AM CDT Plan of Treatment Upcoming Encounters Date Type Department Care Team (Late st Contact Info) Description 10/04/2024 11:45 AM CDT Office Visit [facility] Oncology and Hematology - [place] [address] [facility] [address] [place] [address] Issa Baird MD [address] [facility] [address] [place] [address] Health Maintenance Due Date Last [...] Procedure Name Priority Date/Time Associated Diagnosis Comments CANCER ANTIGEN 15-3 Routine 08/23/2024 1 :25 PM CDT COMPREHENSIVE METABOLIC PANEL Routine 08/23/2024 11:54 AM CDT BASIC METABOLIC PANEL Routine 08/23/2024 10:56 AM CDT CBC MIXED CELL DIFFERENTIAL Routine 08/06 10:54 AM CDT PET BONE IMG W CT SKL BSE MID THG Routine 08/22/2024 9:56 AM CDT NM BONE SCAN WHOLE BODY Routine 08/20/19 11:12 AM CDT BASIC METABOLIC PANEL Routine 08/02/2024 1:25 PM CDT COMPREHENSIVE METABOLIC PANEL Routine 08/02/2024 1:20 PM CDT CANCER ANTIGEN 15-3 Routine 07/26/2024 3 :36 PM CDT COMPREHENSIVE METABOLIC PANEL Routine 07/12/2024 1:00 PM AWAKE OVERNIGHT MONITOR CBC WITH AUTODIFFERENTIAL Routine 2024 11:09 AM AWAKE OVERNIGHT MONITOR CHG CA 15 3 Routine 07/05/2024 10:00 AM AWAKE OVERNIGHT MONITOR from Last 3 Months Results * CANCER ANTIGEN 15-3 (08/23/2024 1:25 PM CDT) Only the most recent of2 resultswithin the time period is included. Blood us Issa Baird MD CHEMISTRY ORDERABLES Final Resu lt * COMPREHENSIVE METABOLIC PANEL (08/23/2024 11:54 AM CDT) Only the most recent of3 resultswithin the time period is included. Blood Result Oren Baird MD CHEMISTRY ORDERABLES Final Resu lt * BASIC METABOLIC PANEL (08/23/2024 10:56 AM CDT) Only the most recent of2 resultswithin the time period is included. Blood Result Oren Baird MD CHEMISTRY ORDERABLES Final Resu lt * CBC MIXED CELL DIFFERENTIAL (08/23/2024 10:54 AM CDT) Blood us Issa Baird MD HEMATOLOGY ORDERABLES Final Res ult * PET BONE IMG W CT SKB MD (08/22/2024 9:56 AM CDT) Anatomical Region Laterality Modality Positron Emissio n Tomography (PET) Result Oren Baird MD PE ORDERABLES Final Result * NM BONE SCAN WHOLE BODY (08/19/2024 11:12 AM CDT) Anatomical Region Laterality Modality Nuclear Medicine us Issa Baird MD NM ORDERABLES Final Result * CBC WITH AUTODIFFERENTIAL (07/12/2024 11:09 AM AWAKE OVERNIGHT MONITOR) Blood us Issa Baird MD HEMATOLOGY ORDERABLES Final Res ult * CHG CA 15 3 (07/05/2024 10:00 AM AWAKE OVERNIGHT MONITOR) us Issa Baird MD CHG - LABORATORY Final Result from Last 3 Months Insurance BLUE ACCESS CHOICE Care Teams Horticulturalist Relationship Specialty Start Date End Date Jhony Robledo MD [address] [place] [phone] PCP - General Family Practice 09/19/19
--- OUTSIDE RECORDS SUMMARY | 2024-09-12 12:31 | XMS_ITS | Encounter Summary ---
Author Organization [facility] Address [address] [place] [address] Phone Care Team Providers Care Racing Car Driver Name Role Phone Oksana Heath MD Primary Care Provider + Jhony Robledo MD Primary Care Provider [phone] Oksana Heath MD Primary Care Provider + Jhony Robledo MD Primary Care Provider Rebel Shields MD Unavailable [phone] Issa Baird MD Unavailable [phone] Encounter Details Date Type Department Care Team (Late st Contact Info) Description 07/07/2017 Orders Only [facility] ProviderBartolo MD [address] [place] [address] Social History Tobacco Use Types Packs/Day Years Used Date Smoking Tobacco: Never Smokeless Tobacco: Never Alcohol Use Standard Drinks/Week Comments Yes 0 (1 standard drink = 0.6 oz pur e alcohol) Comments No Sex and Gender Information Value Date Recorded Sex Assigned at Not on file Legal Sex Female 3:06 AM SUPPLY CHAIN DIRECTOR Gender Identity Not on file Sexual [...] on filedocumented in this encounter Care Teams Racing Car Driver Relationship Specialty Start Date End Date Oksana Heath MD [address] [place] [address] PCP - General 06/16/17 08/24/17 Jhony Robledo MD [address] [place] [address] PCP - General 08/25/17 09/07/17 Oksana Heath MD [address] [place] [address] PCP - General Gynecology 09/08/17 12/21/17 Jhony Robledo MD [address] [place] [address] PCP - General 12/22/17 Rebel Shields MD [address] [place] [address] Medical Oncologist/Hematologis t Hematology and Oncology 11/04/19 Issa Baird MD [address] [place] [address] Referring Physician Hematology 12/25/23 documented as of this encounter
--- OUTSIDE RECORDS SUMMARY | 2024-09-12 12:31 | XMS_ITS | Referral Summary ---
Author Organization [facility] Address [address] [place] [address] Care Team Providers Care Offset Press Operator Helper Name Role Phone Jhony Robledo MD Primary Care Provider [phone] Rebel Shields MD Unavailable [phone] Issa Baird MD Unavailable [phone] Allergies No known active allergies Medications [...] (01/23/2019): Added automatically from request for surgery [id number] Absolute anemia 01/22/2019 Right lower quadrant abdominal [...] (01/05/2018): Added automatically from request for surgery [id number] Hemorrhage of rectum and anus 05/15/2014 Overview [...] on file Legal Sex Female 3:06 AM HEAD CHOPPER Gender Identity Not on file Sexual Orientation [...] Meza MD - 02/05/2019 11:[address] [facility] Endoscopy Lab Patient Name: Christiane Landis [...] for screeningpurposes. Procedure Code(s): --- Professional --- 39718, Colonoscopy, flexible; diagnostic, including collection of specimen(s) by brushing or washing,when performed (separate procedure) Diagnosis Code(s): --- Professional --- R10.31, Right lower quadrant pain D64.9, Anemia, unspecified K57.30, Diverticulosis of large intestine without perforation or abscess without bleeding CPT copyright 2017 [employer]. All rights reserved. The codes documented in this report are preliminary and upon sliver lap machine tender reviewmay be revised to meet current compliance [...] to Health Maintenance Insurance ANTHEM ACCESS CHOICE Member Subscriber Plan / Payer ( fective 2018-Present) Name:Christiane Landis Relation to Subscriber:Spouse Name:NASIR LANDIS Date of :1971 (Home) Address: [address] [place] [phone] Payer ID:[id number] (NAIC) Type:[employer] Address: [id number] [place] [address] ANTHEM ACCESS CHOICE Member Subscriber Plan / Payer ( fective 2018-Present) Name:Christiane Landis Relation to Subscriber:Spouse Name:NASIR LANDIS Date of :1971 (Home) (Work) Address: [address] [place] [address] Payer ID:[id number] (NAIC) Type:[employer] Address: [address] [place] [address] Care Teams Offset Press Operator Helper Relationship Specialty Start Date End Date Jhony Robledo MD [address] [place], [place] [address] PCP - General 12/22/17 Rebel Shields MD [address] [place] [address] Medical Oncologist/Hematologis t Hematology and Oncology 11/04/19 Issa Baird MD [address] [phone] Referring Physician Hematology 12/25/23
--- OUTSIDE RECORDS SUMMARY | 2024-09-12 12:31 | XMS_ITS | Encounter Summary ---
Author Organization [facility] Address [address] [place] [address] Phone Care Team Providers Care Assurance Senior Manager Name Role Phone Jhony Robledo MD Primary Care Provider [phone] Rebel Shields MD Unavailable [phone] Issa Baird MD Unavailable [phone] Encounter Details Date Type Department Care Team (Late st Contact Info) Description 12/25/2023 Telephone [facility] Oncology [address] [facility] [address], [place] [address] Justyna Tavera Social History Tobacco Use Types Packs/Day Years Used Date Smoking Tobacco: Never Smokeless Tobacco: Never Alcohol Use Standard Drinks/Week Comments Yes 0 (1 standard drink = 0.6 oz pur e alcohol) occaionally PHQ-2 Answer Date Recorded PHQ-2 Score 0 01/22/2019 Comments No Sex and Gender Information Value Date Recorded Sex Assigned at Not on file Legal Sex Female 3:06 AM RN DERMATOLOGY Gender Identity Not on file Sexual Orientation Not on file documented as of this encounter Plan of Treatment Not on file documented as of this encounter Visit Diagnoses Not on filedocumented in this encounter Care Teams Assurance Senior Manager Relationship Specialty Start Date End Date Jhony Robledo MD [address] [place] [address] PCP - General 12/22/17 Rebel Shields MD [address] [place] [address] Medical Oncologist/Hematologis t Hematology and Oncology 11/04/19 Issa Baird MD [address] [address] Referring Physician Hematology 12/25/23 documented as of this encounter
--- OUTSIDE RECORDS SUMMARY | 2024-09-12 12:31 | XMS_ITS | Clinical Summary ---
Author Organization [facility] Address [address] [place] [address] Care Team Providers Care Manager Of It Name Role Phone Jhony Robledo MD Primary Care Provider [phone] Rebel Shields MD Unavailable [phone] Issa Baird MD Unavailable [phone] Allergies No known active allergies Medications [...] (01/23/2019): Added automatically from request for surgery [id number] Absolute anemia 01/22/2019 Right lower quadrant abdominal [...] (01/05/2018): Added automatically from request for surgery [id number] Hemorrhage of rectum and anus 05/15/2014 Overview [...] on file Legal Sex Female 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 Procedure Code(s): --- Professional --- 99260, Colonoscopy, flexible; diagnostic, including collection of specimen(s) by brushing or washing,when performed (separate procedure) Diagnosis Code(s): --- Professional --- R10.31, Right lower quadrant pain D64.9, Anemia, unspecified K57.30, Diverticulosis of large intestine without perforation or abscess without bleeding CPT copyright 2017 [employer]. All rights reserved. The codes documented in this report are preliminary and upon graduate assistant reviewmay be revised to meet current compliance [...] ACCESS CHOICE ANTHEM ACCESS CHOICE Care Teams Manager Of It Relationship Specialty Start Date End Date Jhony Robledo MD [address] [place], [place] [address] PCP - General 12/22/17 Rebel Shields MD [address] [place] [address] Medical Oncologist/Hematologis t Hematology and Oncology 11/04/19 Issa Baird MD [address] [address] Referring Physician Hematology 12/25/23
--- OUTSIDE RECORDS SUMMARY | 2024-09-12 12:31 | XMS_ITS ---
Author Organization 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 Past Treatment and Therapy Plans
--- NOTE | 2024-09-12 12:48 | ECHO_ITS ---
Patient Info Name: Christiane Landis Age: 49 years : 1975 Gender: Female Ht: 66 in Wt: 165 lbs BSA: 1.88 m2 HR: 72 bpm BP: 116 / 73 mmHg Technical Quality: Good Exam Date: 09/12/2024 1:01 PM Exam Location: Echo Lab Patient Status: Outpatient Admit Date: 09/12/2024 Staff Ordering Physician: Tyler Martell DO Seo Executive: Samra Morgan RDCS Attending Provider: Tyler Martell DO Referring Physician: Issa Baird MD; Exam Type: CA echo doppler color flow Study Info Indications I51.9 - Heart disease, unspecified Complete two-dimensional, color flow and Doppler transthoracic echocardiogram is performed. Strain analysis performed. Summary 1. Complete two-dimensional, color flow and Doppler transthoracic echocardiogram is performed. 2. Left ventricular systolic function is preserved, estimated at 50-55%. 3. Left ventricular chamber dimension is mildly enlarged. 4. The left ventricular diastolic function is normal. 5. E/e' 4 is not elevated. 6. Global longitudinal strain is normal at -18.5%. 7. Left atrial chamber dimension is mildly enlarged. 8. There is trace tricuspid valve regurgitation. 9. No pulmonary hypertension, estimated pulmonary arterial systolic pressure is 20 mmHg. Left Ventricle E/e' 4 is not elevated. Global longitudinal strain is normal at -18.5%. Left ventricular systolic function is preserved, estimated at 50-55%. Left ventricular chamber dimension is mildly enlarged. The left ventricular diastolic function is normal. Right Ventricle Right ventricular systolic function is normal and with normal TAPSE 2.2 cm. Right ventricular chamber dimension is normal. Left Atria Left atrial chamber dimension is mildly enlarged. Right Atria Right atrial chamber dimension is normal. Aortic Valve The aortic valve is trileaflet. There is no aortic valve stenosis. There is no aortic valve regurgitation. Pulmonic Valve There is no pulmonic regurgitation. Mitral Valve There is no mitral valve stenosis. There is no mitral valve regurgitation. Tricuspid Valve There is trace tricuspid valve regurgitation. No pulmonary hypertension, estimated pulmonary arterial systolic pressure is 20 mmHg. Pericardium/Pleural There is no pericardial effusion. Inferior Vena Cava Normal inferior vena cava with >50% collapse upon inspiration consistent with normal right atrial pressure, 5 mmHg. Aorta The aortic root size at the sinus of Valsalva is normal. Left Ventricular Outflow Tract Name Value Normal LVOT 2D LVOT Diameter 2.1 cm LVOT Doppler LVOT Peak Gradient 2 mmHg LVOT Mean Gradient 1 mmHg LVOT VTI 17 cm LVOT VTI/AV VTI Ratio 0.6 LVOT Stroke Volume 57 ml LVOT CO 10.9 l/min LVOT CI 5.8 l/min/m2 Pulmonic Valve Name Value Normal PV Doppler PV Peak Gradient 2 mmHg Mitral Valve Name Value Normal MV Doppler MV Decel [place] 259 cm/s2 MV PHT 73 ms MV Area (PHT) 3.0 cm2 4.0-5.0 MV Diastolic Function MV E Peak Velocity 65 cm/s MV A Peak Velocity 45 cm/s MV E/A 1.4 MV Decel Time 250 ms MV Annular TDI MV E/e' (Septal) 5.0 <=8.0 MV E/e' (Lateral) 4.0 <=8.0 MV E/e' (Average) 4.5 Tricuspid Valve Name Value Normal TV Regurgitation Doppler TR Peak Velocity 192 cm/s TR Peak Gradient 15 mmHg Estimated PAP/RSVP RA Pressure 5 mmHg <=5 PA Systolic Pressure 20 mmHg <36 RV Systolic Pressure 20 mmHg <36 Aorta Name Value Normal Ascending Aorta Ao Root Diameter (MM) 2.8 cm Ao Root Diam Index (MM) 1.5 cm/m2 Aortic Valve Name Value Normal AV Doppler AV Peak Velocity 124 cm/s AV Peak Gradient 6 mmHg AV Mean Gradient 3 mmHg AV VTI 29 cm AV Area (Cont Eq VTI) 1.9 cm2 >=3.0 AV Area (Cont Eq Chandler) 2.0 cm2 AV Regurgitation 2D LVOT Area 3.3 cm2 Ventricles Name Value Normal LV Dimensions 2D/MM IVS Diastolic Thickness (2D) 0.8 cm 0.6-1.0 LVID Diastole (2D) 5.1 cm 3.8-5.2 LVIW Diastolic Thickness (2D) 0.7 cm 0.6-0.9 LVID Systole (2D) 4.0 cm 2.2-3.5 LVOT Diameter 2.1 cm LV Mass (2D Cubed) 123.05 g 67.00-162.00 LV Mass Index (2D Cubed) 65 g/m2 43-95 Relative Wall Thickness (2D) 0.26 LV Fractional Shortening/Ejection Fraction 2D/MM LV Fractional Shortening (2D) 21 % 27-45 LV EF (2D Teichcalliez) 43 % 54-74 LV Diastolic Volume (4C MOD) 82 ml LV EF (4C MOD) 46 % LV Diastolic Volume (2C MOD) 96 ml LV EF (2C MOD) 53 % LV Diastolic Volume (BP MOD) 90 ml 46-106 LV Diastolic Volume Index (BP MOD) 48 ml/m2 29-61 LV Systolic Volume (BP MOD) 45 ml 14-42 LV Systolic Volume Index (BP MOD) 24 ml/m2 8-24 LV EF (BP MOD) 50 % 54-74 LV Diastolic Length (4C) 8.2 cm LV Systolic Length (4C) 6.9 cm LV Stroke Volume (4C MOD) 38 ml RV Dimensions 2D/MM RVID Diastole (2D) 3.3 cm 2.5-3.5 Atria Name Value Normal LA Dimensions LA Dimension (MM) 2.8 cm 2.7-3.8 LA Volume (4C A-L) 34 ml RA Dimensions RA Area (4C) 11.2 cm2 <=18.0 EchoPAC Name Value Normal AutoEF LVCO_BiP_Q (Fdzw7MIK) 3.1 l/min LVEF_BiP_Q (Ezfb5FCC) 56 % LVSV_BiP_Q (Tfna8VOP) 49 ml LVVED_BiP_Q (Qvfe3CSD) 89 ml LVVES_BiP_Q (Oanf7QNX) 40 ml HR_4Ch_Q (Mxfs6DEW) 63 bpm LVCO_4Ch_Q (Fdof0NBR) 2.8 l/min LVEF_4Ch_Q (Cslt6XFQ) 55 % LVLd_4Ch_Q (Zbyc1UEK) 7.9 cm LVLs_4Ch_Q (Oabd6FZJ) 6.5 cm LVSV_4Ch_Q (Xeua6OAW) 44 ml LVVED_4Ch_Q (Tkpc6VHW) 79 ml LVVES_4Ch_Q (Fekb1KYC) 35 ml HR_2Ch_Q (Ulsr8XZP) 62 bpm LVCO_2Ch_Q (Kcgg6NRH) 3.4 l/min LVEF_2Ch_Q (Sgvt6VCU) 55 % LVLd_2Ch_Q (Pbzq8ROD) 8.1 cm LVLs_2Ch_Q (Cpno0NSM) 6.6 cm LVSV_2Ch_Q (Fukz8JIL) 55 ml LVVED_2Ch_Q (Fgaw3ZVP) 101 ml LVVES_2Ch_Q (Pxqj9BLP) 46 ml BENNY AA peak sys SL (AWMA) 22.1 % AAS peak sys SL (AWMA) 19.0 % AI peak sys SL (AWMA) 24.5 % AL peak sys SL (AWMA) 29.4 % AP peak sys SL (AWMA) 16.7 % peak sys SL (AWMA) 21.2 % AVC (AWMA) 414 ms BA peak sys SL (AWMA) 20.9 % BAS peak sys SL (AWMA) 13.5 % BI peak sys SL (AWMA) 16.6 % BL peak sys SL (AWMA) 18.9 % BP peak sys SL (AWMA) 14.8 % BS peak sys SL (AWMA) 18.0 % G peak SL(A2C) (AWMA) 20.5 % G peak SL(A4C) (AWMA) 18.9 % G peak SL(APLAX) (AWMA) 16.2 % G peak SL(Avg) (AWMA) 18.5 % MA peak sys SL (AWMA) 22.4 % MAS peak sys SL (AWMA) 22.1 % WA peak sys SL (AWMA) 20.6 % ML peak sys SL (AWMA) 19.8 % MP peak sys SL (AWMA) 12.1 % MS peak sys SL (AWMA) 18.4 % Report Signatures
== END 2024-09-12 12:27 | disposition home or self-care (01) ==
PROVIDERS: PCP Family Medicine; Referring Provider Internal Medicine Hematology & Oncology; Visit Provider Internal Medicine Cardiovascular Disease
DX: I51.9 Heart disease, unspecified (principal)
CPT/HCPCS: 93306

== ENCOUNTER 2024-11-21 12:01 | Outpatient (CLI) | payer BC, SELFPAY ==
--- NOTE | ~2024-11-21 | PE_ITS ---
EXAMINATION: PET skull to mid thigh DATE: 11/21/2024 14:01 INDICATION: Breast cancer TECHNIQUE: Blood glucose level was 85 mg/dL. 10.882 mCi of 18-fluorodeoxyglucose (18-FDG) was adminis tered i.v. Low dose computed tomography (CT) images were acquired from the base of the brain to the p roximal thighs for attenuation correction and anatomic localization. Positron emission tomography (PE T) images were acquired in the same distribution beginning 52 minutes after injection. Images includi ng fused PET/CT images were reconstructed in axial, coronal, and sagittal planes. Automated exposure control technique was employed. The dose-length product was 834.88mGy-cm. COMPARISON: PET/CT dated 08/22/[address] chest, abdomen and pelvis dated 06/03/2024 FINDINGS: Head/neck: There is symmetric increased activity in the oral cavity, palatine tonsils and ocular muscles without CT correlate, likely physiologic. There has been some interval increase in size of a mildly FDG avid previously 1.4 x 1.1 cm, currently 2.0 x 1.4 cm subcutaneous nodule posterior to the C7 spinous proc ess with maximal SUV of 3.9. No pathologically enlarged cervical lymphadenopathy or suspicious foci o f increased FDG uptake in the visualized head or neck. Chest: Right internal jugular central venous port catheter with distal tip at the high right atrium. Postope rative change of bilateral mastoidectomies and a left axillary lymph node dissection. No enlarging so ft tissue nodules or abnormal FDG avid lesions at the operative beds to suggest locally recurrent dis ease. There has been recurrence of nodular pleural thickening in the right hemithorax which also demo nstrates some mild increased FDG uptake. For reference there is an 8 x 7 mm nodule along the anterior right minor fissure with maximal SUV of 2.0. Left lung is clear. No pleural effusions. Heart size is normal. No pericardial effusion. Small focus of increased FDG uptake with maximal SUV of 4.2 at the right hilum associated with approximately 9 mm nodule which is difficult to distinguish from the samy r vasculature suspicious for either an additional metastatic pleural deposits or metastatic right hil ar lymph node. No other pathologically enlarged or FDG avid thoracic lymphadenopathy. Abdomen/pelvis/proximal thighs: Physiologic renal accumulation and excretion of FDG activity in the kidneys, bladder and along portio ns of ureters. Normal degree and heterogenous pattern of increased uptake throughout the liver withou t radiologic correlate or dominant FDG avid lesion. The gallbladder, pancreas, spleen and bilateral a drenal glands are normal. Mild uptake scattered throughout the bowels without radiologic correlate, a lso likely physiologic. Postoperative changes along the anterior abdominal wall likely related to manuel or ventral hernia repair. No other abnormal foci of increased FDG uptake or pathologically enlarged l ymphadenopathy in the abdomen, pelvis or proximal thighs. Musculoskeletal: There has been recurrence of increased FDG uptake associated with many of the now mixed lytic and scl erotic bone lesions seen on the PET/CT dated 12/21/2023 which had essentially resolved on intervening PET/CT. For reference the lesion at the right humeral head now demonstrates maximal SUV of 4.0 relati ve to 10.5 on the study from 12/21/2023. IMPRESSION: 1. Interval recurrence/progression of previously resolving/quiescent osseous and right pleural metast atic disease with still significantly lower degrees of FDG uptake when compared with study from 2023. 2. Slight increase in size of an indeterminate now 2.0 cm still mildly FDG avid subcutaneous soft tis carley nodule posterior to the C7 spinous process. Although this could represent additional metastatic d isease although this is unlikely given that the lesion developed during the interval between the 2 pr ior studies during which all of the previously seen metastatic disease had responded to treatment. Reviewed, dictated and finalized at location A. IMPRESSION: 1. Interval recurrence/progression of previously resolving/quiescent osseous an d right pleural metastatic disease with still significantly lower degrees of FD G uptake when compared with study from 12/21/2023. 2. Slight increase in size of an indeterminate now 2.0 cm still mildly FDG avid subcutaneous soft tissue nodule posterior to the C7 spinous process. Although this could represent additional metastatic disease although this is unlikely gi raymundo that the lesion developed during the interval between the 2 prior studies d uring which all of the previously seen metastatic disease had responded to sue tment.
--- OUTSIDE RECORDS SUMMARY | 2024-11-21 12:05 | XMS_ITS | Clinical Summary ---
Author Organization [facility] Raheem Gongora Address [address] [place] [address] Care Team Providers Care Forestry Technician Name Role Phone Jhony Robledo MD Primary Care Provider Allergies No known active allergies Medications calcium carbonate/vitam in D3 (CALCIUM 600 + D,3, ORAL) Take by mouth. Active multivitamin (DAILY-TERRY) tablet Take 2 Tablets by mouth. Active meloxicam (MOBIC) 15 mg tablet Take 1 Tablet by mouth daily. 4 Active ondansetron (ZOFRAN ODT) 8 mg Tablet, Rapid Dissolve Dissolve 1 tablet on top of tongue then swallow with saliva every 8 hours as needed for nausea or vomiting 30 Tablet 1 4 Active lidocaine-prilo federica (EMLA) 2.5-2.5 % Cream Apply a quarter size amount to port site 30 minutes before access. 30 Gram 1 4 Active dexAMETHasone (DECADRON) 4 mg tablet Take 2 Tablets (8 mg) by mouth 2 times daily day before treatment, day of treatment, and day after treatment. 12 Tablet 3 4 Active ferrous sulfate 325 mg (65 mg iron) tablet Take 325 mg by mouth daily. Active cyanocobalamin 1,000 mcg Tablet Take 1,000 mcg by mouth daily. Active exemestane (Aromasin) 25 mg tablet Take 1 Tablet (25 mg) by mouth daily after breakfast. 30 Tablet 5 Active exemestane (Aromasin) 25 mg tablet Take 1 Tablet (25 mg) by mouth daily after breakfast. 90 Tablet 4 5 11/05/19 25 Discontinu ed(Reorder ) exemestane (Aromasin) 25 mg tablet Take 1 Tablet (25 mg) by mouth daily after breakfast. 90 Tablet 3 5 11/08/19 25 Discontinu ed(Reorder ) Active Problems Problem Noted Date Diagnosed Date History of invasive ductal carcinoma of breast 0 11/12/2019 Osteoporosis due to aromatase inhibitor 11/12/19 Encounters Date Type Department Care Team Description 11/19/2024 External Device Data STL ABSTRACTION Provider, Abstract 11/15/2024 8:30 AM CDT Office Visit [facility] Oncology and Hematology - [place] [address] [place] [address] Issa Baird MD Malignant neoplasm of breast in female, estrogen receptor positive, unspecified laterality, unspecified site of breast (CMS/HCC) (Primary Dx) 11/11/2024 Orders Only [facility] Oncology and Hematology - [place] [address] [place] [id number] Issa Baird MD Malignant neoplasm of breast in female, estrogen receptor positive, unspecified laterality, unspecified site of breast (CMS/HCC) 11/07/2024 Refill [facility] Oncology and Hematology - [place] [address] [place] [address] Issa Baird MD 11/07/2024 Refill [facility] Oncology and Hematology - [place] [address] [place] [address] Issa Baird MD 11/04/2024 Refill [facility] Oncology and Hematology - [place] [address] [place] [address] Issa Baird MD 11/01/2024 Orders Only [facility] Oncology and Hematology - [place] [address] [place] [address] Issa Baird MD 10/28/2024 Orders Only [facility] Oncology and Hematology - [place] [address] [place] [id number] Issa Baird MD Malignant neoplasm of breast in female, estrogen receptor positive, unspecified laterality, unspecified site of breast (CMS/HCC) 10/22/2024 External Device Data STL ABSTRACTION Provider, Abstract 10/18/2024 Telephone [facility] Oncology and Hematology [facility] [address] [place] [address] Issa Baird MD Pet Results 10/14/2024 Orders Only [facility] Oncology and Hematology - [place] [address] [place] [address] Issa Baird MD Malignant neoplasm of breast in female, estrogen receptor positive, unspecified laterality, unspecified site of breast (CMS/HCC) 10/04/2024 11:45 AM CDT Office Visit [facility] Oncology and Hematology [place] [address] [address] [place] [address] Issa Baird MD Malignant neoplasm of breast in female, estrogen receptor positive, unspecified laterality, unspecified site of breast (CMS/HCC) (Primary Dx) 09/30/2024 Orders Only [facility] Oncology and Hematology [place] [address] [address] [place] [address] Issa Baird MD Malignant neoplasm of breast in female, estrogen receptor positive, unspecified laterality, unspecified site of breast (CMS/HCC) 09/26/2024 External Device Data STL ABSTRACTION Provider, Abstract 09/25/2024 External Device Data STL ABSTRACTION Provider, Abstract 09/24/2024 External Device Data STL ABSTRACTION Provider, Abstract 09/17/2024 Orders Only [facility] Oncology and Hematology [facility] [address] [place] [address] Issa Baird MD 09/16/2024 Orders Only [facility] Oncology and Hematology - [place] [address] [place] [address] Issa Baird MD Malignant neoplasm of breast in female, estrogen receptor positive, unspecified laterality, unspecified site of breast (CMS/HCC) 09/13/2024 Orders Only [facility] Oncology and Hematology - [place] [address] Issa Baird MD 09/02/2024 Orders Only [facility] Oncology and Hematology - [place] [address] [place] [address] Issa Baird MD Malignant neoplasm of breast in female, estrogen receptor positive, unspecified laterality, unspecified site of breast (CMS/HCC) 08/29/2024 9:30 AM CDT Office Visit [facility] Oncology and Hematology - [place] [address] [place] [address] Mackenzie Robles MD Malignant neoplasm of breast in female, estrogen receptor positive, unspecified laterality, unspecified site of breast (CMS/HCC) (Primary Dx) 08/26/2024 Orders Only [facility] Oncology and Hematology - [place] [address] [place] [address] Issa Baird MD 08/23/2024 Orders Only [facility] Oncology and Hematology - [place] [address] [place] [address] Issa Baird MD from Last 3 Months Family History Medical [...] CDT Gender Identity Female 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 Sexual Orientation Not on file Last Filed Vital Signs Vital Sign Reading Time Taken Comments Blood Pressure 132/71 11/15/2024 8:37 AM CDT Pulse 95 11/15/2024 8:37 AM CDT Temperature 36.3 C (97.3 F) 11/15/2024 8:37 AM CDT Respiratory Rate 16 11/15/2024 8:37 AM CDT Oxygen Saturation 99% 11/15/2024 8:37 AM CDT Inhaled Oxygen Concentration - - Weight 75.2 kg (165 lb 12.8 oz) 11/15/2024 8:37 AM CDT Height 165.1 cm (5' 5) 12/31/2021 8:26 AM CDT Body Mass Index 27.59 12/31/2021 8:26 AM CDT Plan of Treatment Upcoming Encounters Date Type Department Care Team (Late st Contact Info) Description 11/28/2024 4:30 PM CDT Telephone Check Up [facility] Oncology and Hematology - [place] [address] [facility] [address] [place] [address] Issa Baird MD [address] [facility] [address] [place] [address] Health Maintenance Due Date Last [...] Q 5 years 2020 INFLUENZA VACCINE (#1) 2024 03/13/2015, 2013 COLORECTAL SCREENING 02/05/2029 02/05/2019, 02/06/20 19 Colorectal Cancer Screening 02/05/2029 Procedures Procedure Name Priority Date/Time Associated Diagnosis Comments BASIC METABOLIC PANEL Routine 10/25/2024 2:09 PM CDT COMPREHENSIVE METABOLIC PANEL Routine 10/25/2024 2:07 PM CDT CHG CA 15 3 Routine 09/13/2024 2:38 PM CDT BASIC METABOLIC PANEL Routine 09/13/2024 1:46 PM CDT CBC WITH AUTODIFFERENTIAL Routine 2024 1:31 PM CDT COMPREHENSIVE METABOLIC PANEL Routine 09/13/2024 9:01 AM CDT CANCER ANTIGEN 15-3 Routine 08/23/2024 1 :25 PM CDT COMPREHENSIVE METABOLIC PANEL Routine 08/23/2024 11:54 AM CDT BASIC METABOLIC PANEL Routine 08/23/2024 10:56 AM CDT CBC MIXED CELL DIFFERENTIAL Routine 08/06 10:54 AM CDT PET BONE IMG W CT SKL BSE MID THG Routine 08/22/2024 9:56 AM CDT from Last 3 Months Results * BASIC METABOLIC PANEL (10/25/2024 2:09 PM CDT) Only the most recent of3 resultswithin the time period is included. Blood us Issa Baird MD CHEMISTRY ORDERABLES Final Resu lt * COMPREHENSIVE METABOLIC PANEL (10/25/2024 2:07 PM CDT) Only the most recent of3 resultswithin the time period is included. Blood us Issa Baird MD CHEMISTRY ORDERABLES Final Resu lt * CHG CA 15 3 (09/13/2024 2:38 PM CDT) us Issa Baird MD CHG - LABORATORY Final Result * CBC WITH AUTODIFFERENTIAL (09/13/2024 1:31 PM CDT) Blood us Issa Baird MD HEMATOLOGY ORDERABLES Final Res ult * CANCER ANTIGEN 15-3 (08/23/2024 1:25 PM CDT) Blood us Issa Baird MD CHEMISTRY ORDERABLES Final Resu lt * CBC MIXED CELL DIFFERENTIAL (08/23/2024 10:54 AM CDT) Blood Issa Baird MD HEMATOLOGY ORDERABLES Final Res ult * PET BONE IMG W CT SKB MD (08/22/2024 9:56 AM CDT) Anatomical Region Laterality Modality Positron Emissio n Tomography (PET) Issa Baird MD PE ORDERABLES Final Result from Last 3 Months Insurance BLUE ACCESS CHOICE Care Teams Forestry Technician Relationship Specialty Start Date End Date Jhony Robledo MD [address] [place] [id number] PCP - General Family Practice 09/19/19
--- OUTSIDE RECORDS SUMMARY | 2024-11-21 12:05 | XMS_ITS ---
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 Past Treatment and Therapy Plans
--- OUTSIDE RECORDS SUMMARY | 2024-11-21 12:05 | XMS_ITS | Clinical Summary ---
Author Organization [facility] Address [address] [place] [address] Care Team Providers Care Incident Coordinator Name Role Phone Jhony Robledo MD Primary Care Provider [phone] Rebel Shields MD Unavailable [phone] Issa Baird MD Unavailable [phone] Allergies No known active allergies Medications [...] (01/23/2019): Added automatically from request for surgery [id number] Absolute anemia 01/22/2019 Right lower quadrant abdominal [...] (01/05/2018): Added automatically from request for surgery [id number] Hemorrhage of rectum and anus 05/15/2014 Overview [...] on file 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 Gender Identity Not on file Sexual Orientation [...] A M CDT Height 167 cm (5' 5.75) 01/09/2024 8:04 AM CDT Body Mass Index [...] Depression Screening 01/23/2020 01/22/2019 Influenza Vaccine (#1) 2025 5, 02/21/2014, 05/22/2013 Colon Cancer Screening-Colonoscopy 02/05/20292018, 06/03/2014 Procedures Procedure Name Priority Date/Time Associated Diagnosis Comments COLONOSCOPY 02/05/2019 11:42 AM CDT DIGITAL MAMMOGRAPHY Routine 08/08/2012 3 :54 PM CDT from Last 3 Months or Most Recently Relevant to Health Maintenance Results * COLONOSCOPY (02/05/2019 11:42 AM CDT) Anatomical Region Laterality Modality Other Narrative Procedure Note Albert Meza MD - 02/05/2019 11:42 AM CDT [facility] Patient Name: Christiane Landis [...] for screeningpurposes. Procedure Code(s): --- Professional --- 03662, Colonoscopy, flexible; diagnostic, including collection of specimen(s) by brushing or washing,when performed (separate procedure) Diagnosis Code(s): --- Professional --- R10.31, Right lower quadrant pain D64.9, Anemia, unspecified K57.30, Diverticulosis of large intestine without perforation or abscess without bleeding CPT copyright 2017 [employer]. All rights reserved. The codes documented in this report are preliminary and upon forensic pathologist reviewmay be revised to meet current compliance [...] Most Recently Relevant to Health Maintenance Insurance [employer] ACCESS CHOICE ANTHEM ACCESS CHOICE Care Teams Incident Coordinator Relationship Specialty Start Date End Date Jhony Robledo MD [address] [place], [place] [address] PCP - General 12/22/17 Rebel Shields MD [address] [place] [address] Medical Oncologist/Hematologis t Hematology and Oncology 11/04/19 Issa Baird MD [address] [address] Referring Physician Hematology 12/25/23
--- OUTSIDE RECORDS SUMMARY | 2024-11-21 12:05 | XMS_ITS | Encounter Summary ---
Author Organization [facility] Address 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 Sexual Orientation Not on file documented as of this encounter Plan of Treatment Upcoming Encounters Date Type Department Care Team (Late Contact Info) Description 11/28/2024 4:30 PM CDT Telephone Check Up [facility] Oncology and Hematology - [place] [address] [facility] [address] [place] [address] Issa Baird MD [address] [facility] [address] [place] [address] documented as of this encounter Visit Diagnoses Not on filedocumented in this encounter Care Teams Driver Guide Relationship Specialty Start Date End Date Jhony Robledo MD [address] [place] [phone] PCP - General Family Practice 09/19/19 documented as of this encounter
--- OUTSIDE RECORDS SUMMARY | 2024-11-21 12:05 | XMS_ITS | Encounter Summary ---
Author Organization [facility] Address [address] [place] [address] Phone Care Team Providers Care Production Control Coordinator Name Role Phone Jhony Robledo MD Primary Care Provider [phone] Rebel Shields MD Unavailable [phone] Issa Baird MD Unavailable Encounter Details Date Type Department Care Team (Late st Contact Info) Description 12/25/2023 Telephone [facility] Oncology [address] [facility] [address], [place] [address] Justyna Tavera Social History Tobacco [...] on file 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 Gender Identity Not on file Sexual Orientation Not on file documented as of this encounter Plan of Treatment Not on file documented as of this encounter Visit Diagnoses Not on filedocumented in this encounter Care Teams Production Control Coordinator Relationship Specialty Start Date End Date Jhony Robledo MD [address] [place] [id number] PCP - General 12/22/17 Rebel Shields MD [address] [place] [address] Medical Oncologist/Hematologis t Hematology and Oncology 11/04/19 Issa Baird MD [address] [address] Referring Physician Hematology 12/25/23 documented as of this encounter
--- OUTSIDE RECORDS SUMMARY | 2024-11-21 12:05 | XMS_ITS | Referral Summary ---
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 Procedure Code(s): --- Professional --- 78401, Colonoscopy, flexible; diagnostic, including collection of specimen(s) by brushing or washing,when performed (separate procedure) Diagnosis Code(s): --- Professional --- R10.31, Right lower quadrant pain D64.9, Anemia, unspecified K57.30, Diverticulosis of large intestine without perforation or abscess without bleeding CPT copyright 2017 [employer]. All rights reserved. The codes documented in this report are preliminary and upon solar installation helper reviewmay be revised to meet current compliance [...] ACCESS CHOICE ANTHEM ACCESS CHOICE Care Teams Body Shop Worker Relationship Specialty Start Date End Date Jhony Robledo MD [address] [place], [place] [address] PCP - General 12/22/17 Rebel Shields MD [address] [place] [address] Medical Oncologist/Hematologis t Hematology and Oncology 11/04/19 Issa Baird MD [address] [id number] Referring Physician Hematology 12/25/23
--- OUTSIDE RECORDS SUMMARY | 2024-11-21 12:05 | XMS_ITS | Encounter Summary ---
Author Organization [facility] Address [address] [place] [address] Phone Care Team Providers Care Funeral Home Assistant Name Role Phone Oksana Heath MD Primary Care Provider + Jhony Robledo MD Primary Care Provider [phone] Oksana Heath MD Primary Care Provider + Jhony Robledo MD Primary Care Provider [phone] Rebel Shields MD Unavailable [phone] Issa Baird MD Unavailable [phone] Encounter Details Date Type Department Care Team (Late st Contact Info) Description 07/07/2017 Orders Only [facility] ProviderBartolo MD [address] [place] [address] Social History Tobacco Use Types Packs/Day Years Used Date Smoking Tobacco: Never Smokeless Tobacco: Never Alcohol Use Standard Drinks/Week Comments Yes 0 (1 standard drink = 0.6 oz pur e alcohol) Comments No Sex and Gender Information Value Date Recorded Sex Assigned at Not on file 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 Gender Identity Not on file Sexual Orientation [...] on filedocumented in this encounter Care Teams Funeral Home Assistant Relationship Specialty Start Date End Date Oksana Heath MD [address] [place] [address] PCP - General 06/16/17 08/24/17 Jhony Robledo MD [address] [place] [address] PCP - General 08/25/17 09/07/17 Oksana Heath MD [address] [place] [address] PCP - General Gynecology 09/08/17 12/21/17 Jhony Robledo MD [address] [place] [address] PCP - General 12/22/17 Rebel Shields MD [address] [place] [address] Medical Oncologist/Hematologis t Hematology and Oncology 11/04/19 Issa Baird MD [address] [place] [address] Referring Physician Hematology 12/25/23 documented as of this encounter
== END 2024-11-21 12:02 | disposition home or self-care (01) ==
PROVIDERS: PCP Family Medicine; Visit Provider Internal Medicine Hematology & Oncology
DX: C50.919 Malignant neoplasm of unspecified site of unspecified female breast (principal); Z17.0 Estrogen receptor positive status [ER+]; M89.9 Disorder of bone, unspecified
CPT/HCPCS: 78815; A9552

== ENCOUNTER 2024-12-11 13:35 | Outpatient (CLI) | payer BC, SELFPAY ==
--- NOTE | 2024-12-11 | ECHO_ITS ---
Patient Info Name: Christiane Landis Age: 49 years : 1975 Gender: Female Ht: 66 in Wt: 165 lbs BSA: 1.88 m2 HR: 80 bpm BP: 104 / 64 mmHg Heart Rhythm: Sinus Rhythm Technical Quality: Good Exam Date: 12/11/2024 1:58 PM Patient Status: O Admit Date: 12/11/2024 Exam Type: CA echo doppler color flow Complete two-dimensional, color flow and Doppler transthoracic echocardiogram is performed. Strain analysis performed. Artist Relationship Manager: Stacy Villeda Attending Provider: Issa Baird MD Summary 1. Complete two-dimensional, color flow and Doppler transthoracic echocardiogram is performed. 2. Left ventricular chamber dimension is normal. 3. Left ventricular systolic function is normal, estimated at 55-60. 4. The left ventricular diastolic function is grade I diastolic dysfunction. 5. Global longitudinal strain is normal at -20.2%. 6. E/e' 4 is not elevated. 7. There is trace tricuspid valve regurgitation. 8. No pulmonary hypertension, estimated pulmonary arterial systolic pressure is 21 mmHg. Left Ventricle E/e' 4 is not elevated. Left ventricular chamber dimension is normal. Left ventricular systolic function is normal, estimated at 55-60. The left ventricular diastolic function is grade I diastolic dysfunction. Global longitudinal strain is normal at -20.2%. Right Ventricle Right ventricular chamber dimension is normal. Right ventricular systolic function is normal. Left Atria Left atrial chamber dimension is normal. Right Atria Right atrial chamber dimension is normal. Aortic Valve The aortic valve is trileaflet. There is no aortic valve stenosis. There is no aortic valve regurgitation. Pulmonic Valve There is no pulmonic regurgitation. Mitral Valve There is no mitral valve stenosis. There is no mitral valve regurgitation. Tricuspid Valve There is trace tricuspid valve regurgitation. No pulmonary hypertension, estimated pulmonary arterial systolic pressure is 21 mmHg. Pericardium/Pleural There is no pericardial effusion. Inferior Vena Cava Normal inferior vena cava with >50% collapse upon inspiration consistent with normal right atrial pressure, 5 mmHg. Aorta The aortic root size at the sinus of Valsalva is normal. Left Ventricular Outflow Tract Name Value Normal LVOT 2D LVOT Diameter 2.1 cm LVOT Doppler LVOT Peak Velocity 80 cm/s LVOT Peak Gradient 3 mmHg LVOT Mean Gradient 1 mmHg LVOT VTI 15 cm LVOT VTI/AV VTI Ratio 0.5 LVOT Stroke Volume 51 ml LVOT CO 3.4 l/min LVOT CI 1.8 l/min/m2 Pulmonic Valve Name Value Normal RVOT Doppler RVOT Peak Velocity 61 cm/s RVOT Peak Gradient 2 mmHg PV Doppler PV Peak Velocity 87 cm/s PV Peak Gradient 3 mmHg Mitral Valve Name Value Normal MV Diastolic Function MV E Peak Velocity 52 cm/s MV A Peak Velocity 61 cm/s MV E/A 0.8 MV Decel Time (PW) 323 ms MV Annular TDI MV E/e' (Septal) 4.3 MV E/e' (Lateral) 4.0 MV E/e' (Average) 4.2 Tricuspid Valve Name Value Normal TV Regurgitation Doppler TR Peak Velocity 201 cm/s TR Peak Gradient 16 mmHg Estimated PAP/RSVP RA Pressure 5 mmHg <=5 PA Systolic Pressure 21 mmHg <36 RV Systolic Pressure 21 mmHg <36 TV Annular TDI TV Lateral Ivette s' Velocity 11.7 cm/s >=9.5 Aortic Valve Name Value Normal AV Doppler AV Peak Velocity 152 cm/s AV Peak Gradient 9 mmHg AV Mean Gradient 5 mmHg AV VTI 29 cm AV Area (Cont Eq VTI) 1.7 cm2 >=3.0 AV Area (Cont Eq Chandler) 1.8 cm2 AV DI (Chandler) 0.53 AV Regurgitation 2D LVOT Area 3.4 cm2 Ventricles Name Value Normal LV Dimensions 2D/MM IVS Diastolic Thickness (2D) 0.9 cm 0.6-1.0 LVID Diastole (2D) 4.7 cm 3.8-5.2 LVIW Diastolic Thickness (2D) 0.8 cm 0.6-0.9 LVID Systole (2D) 3.2 cm 2.2-3.5 LVOT Diameter 2.1 cm LV Mass (2D Cubed) 134.49 g 67.00-162.00 LV Mass Index (2D Cubed) 71 g/m2 43-95 Relative Wall Thickness (2D) 0.35 <=0.42 LV Fractional Shortening/Ejection Fraction 2D/MM LV Fractional Shortening (2D) 33 % 27-45 LV EF (2D Teichholz) 61 % LV Diastolic Volume (4C MOD) 62 ml LV EF (4C MOD) 58 % LV Diastolic Volume (2C MOD) 66 ml LV EF (2C MOD) 56 % LV Diastolic Volume (BP MOD) 66 ml 46-106 LV Diastolic Volume Index (BP MOD) 35 ml/m2 29-61 LV Systolic Volume (BP MOD) 28 ml 14-42 LV Systolic Volume Index (BP MOD) 15 ml/m2 8-24 LV EF (BP MOD) 58 % 54-74 LV Diastolic Length (4C) 7.5 cm LV Systolic Length (4C) 6.5 cm LV Stroke Volume (4C MOD) 36 ml Atria Name Value Normal LA Dimensions LA Volume (4C A-L) 31 ml LA Volume (BP A-L) 40 ml RA Dimensions RA Area (4C) 10.2 cm2 <=18.0 EchoPAC Name Value Normal BENNY LV Apical Anterior Longitudinal Strain (BENNY) -23.6 % LV Apical Anteroseptal Longitudinal Strain (BENNY) -23.5 % LV Apical Inferior Longitudinal Strain (BENNY) -22.6 % LV Apical Lateral Longitudinal Strain (BENNY) -21.1 % LV Apical Posterior Longitudinal Strain (BENNY) -24.2 % LV Apical Septal Longitudinal Strain (BENNY) -20.9 % AV Closure (BENNY) 360 ms LV Basal Anterior Longitudinal Strain (BENNY) -18.9 % LV Basal Anteroseptal Longitudinal Strain (BENNY) -16.9 % LV Basal Inferior Longitudinal Strain (BENNY) -17.6 % LV Basal Anterolateral Longitudinal Strain (BENNY) -18.1 % LV Basal Inferolateral Longitudinal Strain (BENNY) -20.9 % LV Basal Inferoseptal Longitudinal Strain (BENNY) -17.6 % LV Global Longitudinal Strain (2C BENNY) -20.5 % LV Global Longitudinal Strain (4C BENNY) -18.9 % LV Global Longitudinal Strain (APLAX BENNY) -21.1 % LV Global Longitudinal Strain (BENNY) -20.2 % LV Mid Anterior Longitudinal Strain (BENNY) -21.7 % LV Mid Anteroseptal Longitudinal Strain (BENNY) -19.4 % LV Mid Inferior Longitudinal Strain (BENNY) -20.1 % LV Mid Anterolateral Longitudinal Strain (BENNY) -18.0 % LV Mid Inferolateral Longitudinal Strain (BENNY) -21.8 % LV Mid Inferoseptal Longitudinal Strain (BENNY) -19.0 % Report Signatures
--- OUTSIDE RECORDS SUMMARY | 2024-12-11 13:45 | XMS_ITS | Encounter Summary ---
Author Organization [facility] [employer] [facility] Address [address] [place] [address] Care Team Providers Care Inseamer Name Role Phone Jhony Robledo MD Primary Care Provider Encounter Details Date Type Department Care Team ([facility] Contact Info) Description 12/06/2024 Orders Only [facility] Oncology and Hematology - [place] [address] [place] [address] Issa Baird MD [facility] [employer] [address] [place] [address] Social History Tobacco Use Types Packs/Day Years Used Date Smoking Tobacco: Never Smokeless Tobacco: Never Alcohol Use Standard Drinks/Week Comments Yes 0 (1 standard drink = 0.6 oz pur e alcohol) Comments Unknown Sex and Gender Information Value Date Recorded Sex Assigned at Not on file Legal Sex Female 2:51 PM CDT Gender Identity Female 06/13/2024 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 Sexual Orientation Not on file documented as of this encounter Plan of Treatment Upcoming Encounters Date Type Department Care Team ([facility] Contact Info) Description 12/27/2024 8:45 AM CDT Office Visit [facility] Oncology and Hematology - [place] [address] [place] [address] Issa Baird MD [address] [employer] [address] [place] [address] 01/16/2025 7:30 AM CDT Appointment [facility] [place] [address] [place] [address] Issa Baird MD [address] [facility] [address] [place] [address] documented as of this encounter Procedures Procedure Name Priority Date/Time Associated Diagnosis Comments BASIC METABOLIC PANEL Routine 12/06/2024 11:42 AM CDT CBC WITH AUTODIFFERENTIAL Routine 2024 11:37 AM CDT documented in this encounter Results * BASIC METABOLIC PANEL (12/06/2024 11:42 AM CDT) Blood us Issa Baird MD CHEMISTRY ORDERABLES Final Resu lt * CBC WITH AUTODIFFERENTIAL (12/06/2024 11:37 AM CDT) Blood us Issa Baird MD HEMATOLOGY ORDERABLES Final Res ult documented in this encounter Visit Diagnoses Not on filedocumented in this encounter Care Teams Inseamer Relationship Specialty Start Date End Date Jhony Robledo MD [address] [place] [address] PCP - General Family Practice 09/19/19 documented as of this encounter
--- OUTSIDE RECORDS SUMMARY | 2024-12-11 13:45 | XMS_ITS | Encounter Summary ---
Author Organization [facility] Address [address] [place] [address] Phone Care Team Providers Care Prom Burn Off Operator Name Role Phone Oksana Heath MD Primary Care Provider + Jhony Robledo MD Primary Care Provider [phone] Oksana Heath MD Primary Care Provider + Jhony Robledo MD Primary Care Provider [phone] Rebel Shields MD Unavailable [phone] Issa Baird MD Unavailable Encounter Details Date Type Department Care Team (Late st Contact Info) Description 07/07/2017 Orders Only 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 Gender Identity Not on file Sexual Orientation [...] on filedocumented in this encounter Care Teams Prom Burn Off Operator Relationship Specialty Start Date End Date Oksana Heath MD [address] [place] [address] PCP - General 06/16/17 08/24/17 Jhony Robledo MD [address] [place] [address] PCP - General 08/25/17 09/07/17 Oksana Heath MD [address] [place] [address] PCP - General Gynecology 09/08/17 12/21/17 Jhony Robledo MD [address] [place] [address] PCP - General 12/22/17 Rebel Shields MD [address] [place] [address] Medical Oncologist/Hematologis t Hematology and Oncology 11/04/19 Issa Baird MD [address] [place] [address] Referring Physician Hematology 12/25/23 documented as of this encounter
--- OUTSIDE RECORDS SUMMARY | 2024-12-11 13:46 | XMS_ITS ---
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 Past Treatment and Therapy Plans
--- OUTSIDE RECORDS SUMMARY | 2024-12-11 13:46 | XMS_ITS | Encounter Summary ---
Author Organization [facility] Address [address] [place] [address] Phone Care Team Providers Care Fiber Optics Technician Name Role Phone Jhony Robledo MD Primary Care Provider [phone] Rebel Shields MD Unavailable [phone] Issa Baird MD Unavailable [phone] Encounter Details Date Type Department Care Team (Late st Contact Info) Description 12/25/2023 Telephone [facility] Oncology [address] [facility] [address], [place] [address] Justyna Tavera Social History Tobacco [...] on file 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 Gender Identity Not on file Sexual Orientation Not on file documented as of this encounter Plan of Treatment Not on file documented as of this encounter Visit Diagnoses Not on filedocumented in this encounter Care Teams Fiber Optics Technician Relationship Specialty Start Date End Date Jhony Robledo MD [address] [place] [address] PCP - General 12/22/17 Rebel Shields MD [address] [place] [address] Medical Oncologist/Hematologis t Hematology and Oncology 11/04/19 Issa Baird MD [address] [address] Referring Physician Hematology 12/25/23 documented as of this encounter
--- OUTSIDE RECORDS SUMMARY | 2024-12-11 13:46 | XMS_ITS | Clinical Summary ---
Author Organization [facility] Raheem Gongora Address [address] [place] [address] Care Team Providers Care Net Repairer Name Role Phone Jhony Robledo MD Primary [...] by mouth daily after breakfast. 30 Tablet 11/07/2024 Active Active Problems Problem Noted Date Diagnosed Date History of invasive ductal carcinoma of breast 0 11/12/2019 Osteoporosis due to aromatase inhibitor 07/07/20 20 Encounters Date Type Department Care Team Description 12/10/2024 External Device Data STL ABSTRACTION Provider, Abstract 12/09/2024 Orders Only [facility] Oncology and Hematology [facility] [address] [phone] Issa Baird MD Malignant neoplasm of breast in female, estrogen receptor positive, unspecified laterality, unspecified site of breast (CMS/HCC) 12/06/2024 Orders Only [facility] Oncology [facility] Hematology [facility] [address] [phone] Isas Baird MD 12/03/2024 Orders Only [facility] Oncology [facility] Hematology [facility] [address] [place] [phone] Issa Baird MD Malignant neoplasm of breast in female, estrogen receptor positive, unspecified laterality, unspecified site of breast (CMS/HCC) (Primary Dx) 12/02/2024 Orders Only [facility] Oncology and Hematology [facility] [address] [place] [phone] Issa Baird MD Encounter for antineoplastic chemotherapy (Primary Dx) 11/29/2024 Orders Only [facility] Oncology [facility] Hematology [facility] [address] [place] [address] Issa Baird MD Nodule of skin of neck (Primary Dx) 11/28/2024 4:30 PM CDT Telephone Check Up [facility] Oncology [facility] Hematology [facility] [address] [place] [address] Issa Baird MD Malignant neoplasm of breast in female, estrogen receptor positive, unspecified laterality, unspecified site of breast (CMS/HCC) (Primary Dx); Nodule of skin of neck 11/28/2024 Orders Only [facility] Oncology [facility] Hematology [facility] [address] [place] [address] Issa Baird MD Nodule of skin of neck (Primary Dx) 11/25/2024 Orders Only [facility] Oncology and Hematology - [place] [address] [place] [phone] Issa Baird MD Malignant neoplasm of breast in female, estrogen receptor positive, unspecified laterality, unspecified site of breast (CMS/HCC) 11/22/2024 Abstract [facility] Oncology and Hematology - [place] [address] [place] [phone] Issa Baird MD 11/20/2024 External Device Data STL ABSTRACTION Provider, Abstract 11/19/2024 External Device Data STL ABSTRACTION Provider, Abstract 11/15/2024 8:30 AM CDT Office Visit [facility] Oncology and Hematology - [place] [address] [place] [phone] Issa Baird MD Malignant neoplasm of breast in female, estrogen receptor positive, unspecified laterality, unspecified site of breast (CMS/HCC) (Primary Dx) 11/11/2024 Orders Only [facility] Oncology and Hematology - [place] [address] [place] [phone] Issa Baird MD Malignant neoplasm of breast in female, estrogen receptor positive, unspecified laterality, unspecified site of breast (CMS/HCC) 11/07/2024 Refill [facility] Oncology and Hematology - [place] [address] [place] [address] Issa Baird MD 11/07/2024 Refill [facility] Oncology and Hematology - [place] [address] [place] [address] Issa Baird MD 11/04/2024 Refill [facility] Oncology and Hematology - [place] [address] [place] [address] Issa Baird MD 11/01/2024 Orders Only [facility] Oncology and Hematology - [place] [address] [place] [address] Issa Baird MD 10/28/2024 Orders Only [facility] Oncology and Hematology - [place] [address] [phone] Issa Baird MD Malignant neoplasm of breast in female, estrogen receptor positive, unspecified laterality, unspecified site of breast (CMS/HCC) 10/22/2024 External Device Data STL ABSTRACTION Provider, Abstract 10/18/2024 Telephone [facility] Oncology and Hematology - [place] [address] [phone] Issa Baird MD Pet Results 10/14/2024 Orders Only [facility] Oncology and Hematology - [place] [address] [place] [address] Issa Baird MD Malignant neoplasm of breast in female, estrogen receptor positive, unspecified laterality, unspecified site of breast (CMS/HCC) 10/04/2024 11:45 AM CDT Office Visit [facility] Oncology and Hematology - [place] [address] [place] [address] Issa Baird MD Malignant neoplasm of breast in female, estrogen receptor positive, unspecified laterality, unspecified site of breast (CMS/HCC) (Primary Dx) 09/30/2024 Orders Only [facility] Oncology and Hematology - [place] [address] [place] [address] Issa Baird MD Malignant neoplasm of breast in female, estrogen receptor positive, unspecified laterality, unspecified site of breast (CMS/HCC) 09/26/2024 External Device Data STL ABSTRACTION Provider, Abstract 09/25/2024 External Device Data STL ABSTRACTION Provider, Abstract 09/24/2024 External Device Data STL ABSTRACTION Provider, Abstract 09/17/2024 Orders Only [facility] Oncology and Hematology - [place] [address] [place] [address] Issa Baird MD 09/16/2024 Orders Only [facility] Oncology and Hematology - [place] [address] [place] [address] Issa Baird MD Malignant neoplasm of breast in female, estrogen receptor positive, unspecified laterality, unspecified site of breast (CMS/HCC) 09/13/2024 Orders Only [facility] Oncology and Hematology [facility] [address] [place] [address] Issa Baird MD from Last 3 Months [...] CDT Gender Identity Female 06/13/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 Sexual Orientation Not on file Last Filed [...] Care Team (Late st Contact Info) Description 12/27/2024 8:45 AM CDT Office Visit [facility] Oncology and Hematology [facility] [address] [place] [address] Issa Baird MD [address] [place] [address] 01/16/2025 7:30 AM CDT [facility] [place] [address] [place] [address] Issa Baird MD [address] [place] [address] Health Maintenance Due Date Last Done [...] WITH AUTODIFFERENTIAL Routine 2024 11:37 AM CDT GLUCOSE LEVEL Routine 11/21/2024 5:01 PM CDT PET BONE IMG W CT SKL BSE MID THG Routine 11/21/2024 8:21 AM CDT BASIC METABOLIC PANEL Routine 10/25/2024 2:09 PM CDT COMPREHENSIVE METABOLIC PANEL Routine 10/25/2024 2:07 PM CDT CHG CA 15 3 Routine 09/13/2024 2:38 PM CDT BASIC METABOLIC PANEL Routine 09/13/2024 1:46 PM CDT CBC WITH AUTODIFFERENTIAL Routine 2024 1:31 PM CDT COMPREHENSIVE METABOLIC PANEL Routine 09/13/2024 9:01 AM CDT from Last 3 Months Results * BASIC METABOLIC PANEL (12/06/2024 11:42 AM CDT) Only the most recent of3 resultswithin the time period is included. Blood Result Oren Baird MD CHEMISTRY ORDERABLES Final Resu lt * CBC WITH AUTODIFFERENTIAL (12/06/2024 11:37 AM CDT) Only the most recent of2 resultswithin the time period is included. Blood Result Oren Baird MD HEMATOLOGY ORDERABLES Final Res ult * GLUCOSE LEVEL (11/21/2024 5:01 PM CDT) Blood Result Oren Baird MD CHEMISTRY ORDERABLES Final Resu lt * PET BONE IMG W CT SKB MD (11/21/2024 8:21 AM CDT) Anatomical Region Laterality Modality Positron Emissio n Tomography (PET) Result Oren Baird MD PE ORDERABLES Final Result * COMPREHENSIVE METABOLIC PANEL (10/25/2024 2:07 PM CDT) Only the most recent of2 resultswithin the time period is included. Blood Result Oren Baird MD CHEMISTRY ORDERABLES Final Resu lt * CHG CA 15 3 (09/13/2024 2:38 PM CDT) Result Oren Baird MD CHG - LABORATORY Final Result from Last 3 Months Insurance [facility] BLUE ACCESS CHOICE Care Teams Net Repairer Relationship Specialty Start Date End Date Jhony Robledo MD [address] [place] [phone] PCP - General Family Practice 09/19/19
--- OUTSIDE RECORDS SUMMARY | 2024-12-11 13:46 | XMS_ITS | Encounter Summary ---
Author Organization [facility] [employer] [facility] Address [address] [place] [address] Care Team Providers Care Sanitary Chemist Name Role Phone Jhony Robledo MD Primary Care Provider [phone] Encounter Details Date Type Department Care Team (Late Contact Info) Description 12/09/2024 Orders Only [facility] Oncology and Hematology [facility] [address] [place] [address] Issa Baird MD [address] [place] [address] Malignant neoplasm of breast in female, [...] CDT Gender Identity Female 06/13/2024 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 Sexual Orientation Not on file documented as of this encounter Plan of Treatment Upcoming Encounters Date Type Department Care Team (Late Contact Info) Description 12/27/2024 8:45 AM CDT Office Visit [facility] Oncology and Hematology - [place] [address] [place] [address] Issa Baird MD [address] [place] [address] 01/16/2025 7:30 AM CDT Appointment [facility] [address] [address] [place] [address] Issa Baird MD [address] [facility] [address] [place] [phone] documented as of this encounter Visit Diagnoses Diagnosis Malignant neoplasm of breast in female, estrogen receptor positive, unspecified laterality, unspecified site of breast (CMS/HCC) documented in this encounter Care Teams Sanitary Chemist Relationship Specialty Start Date End Date Jhony Robledo MD [address] [place] [address] PCP - General Family Practice 09/19/19 documented as of this encounter
--- OUTSIDE RECORDS SUMMARY | 2024-12-11 13:46 | XMS_ITS | Clinical Summary ---
Author Organization [facility] Address [address] [place] [address] Care Team Providers Care Geological Drafter Name Role Phone Jhony Robledo MD Primary Care Provider [phone] Rebel Shields MD Unavailable [phone] Issa Baird MD Unavailable [phone] Allergies No known active allergies Medications [...] (01/23/2019): Added automatically from request for surgery [id number] Absolute anemia 01/22/2019 Right lower quadrant abdominal [...] (01/05/2018): Added automatically from request for surgery [id number] Hemorrhage of rectum and anus 05/15/2014 Overview [...] on file 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 Procedure Code(s): --- Professional --- 09644, Colonoscopy, flexible; diagnostic, including collection of specimen(s) by brushing or washing,when performed (separate procedure) Diagnosis Code(s): --- Professional --- R10.31, Right lower quadrant pain D64.9, Anemia, unspecified K57.30, Diverticulosis of large intestine without perforation or abscess without bleeding CPT copyright 2017 [employer]. All rights reserved. The codes documented in this report are preliminary and upon infrastructure software engineer reviewmay be revised to meet current compliance [...] Most Recently Relevant to Health Maintenance Insurance [employer] ACCESS CHOICE ANTHEM ACCESS CHOICE Care Teams Geological Drafter Relationship Specialty Start Date End Date Jhony Robledo MD [address] [place], [place] [address] PCP - General 12/22/17 Rebel Shields MD [address] [place] [address] Medical Oncologist/Hematologis t Hematology and Oncology 11/04/19 Issa Baird MD [address] [address] Referring Physician Hematology 12/25/23
--- OUTSIDE RECORDS SUMMARY | 2024-12-11 13:46 | XMS_ITS | Encounter Summary ---
Author Organization [facility] Address 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 Sexual Orientation Not on file documented as of this encounter Plan of Treatment Upcoming Encounters Date Type Department Care Team (Late Contact Info) Description 12/27/2024 8:45 AM CDT Office Visit [facility] Oncology and Hematology - [place] [address] [place] [address] Issa Baird MD [address] [place] [address] 01/16/2025 7:30 AM CDT Appointment [facility] [address] [place] [phone] Issa Baird MD [address] [facility] [place] [address] documented as of this encounter Visit Diagnoses Not on filedocumented in this encounter Care Teams Channel Program Manager Relationship Specialty Start Date End Date Jhony Robledo MD [address] [place] [phone] PCP - General Family Practice 09/19/19 documented as of this encounter
== END 2024-12-11 13:36 | disposition home or self-care (01) ==
LOC: ANHCARD 13:35
PROVIDERS: PCP Family Medicine; Visit Provider Internal Medicine Hematology & Oncology
DX: Z51.11 Encounter for antineoplastic chemotherapy (principal)
CPT/HCPCS: 93306

== ENCOUNTER 2025-02-11 08:58 | Outpatient (CLI) | payer BC, SELFPAY ==
--- OUTSIDE RECORDS SUMMARY | 2025-02-11 09:17 | XMS_ITS | Clinical Summary ---
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 Procedure Code(s): --- Professional --- 22107, Colonoscopy, flexible; diagnostic, including collection of specimen(s) by brushing or washing,when performed (separate procedure) Diagnosis Code(s): --- Professional --- R10.31, Right lower quadrant pain D64.9, Anemia, unspecified K57.30, Diverticulosis of large intestine without perforation or abscess without bleeding CPT copyright 2017 [employer]. All rights reserved. The codes documented in this report are preliminary and upon cleaner furniture reviewmay be revised to meet current compliance [...] Most Recently Relevant to Health Maintenance Insurance [employer] ACCESS CHOICE ANTHEM ACCESS CHOICE Care Teams Services Program Manager Relationship Specialty Start Date End Date Jhony Robledo MD [address] [place], [place] [phone] PCP - General 12/22/17 Rebel Shields MD [address] [place] [address] Medical Oncologist/Hematologis t Hematology and Oncology 11/04/19 Issa Baird MD [address] [address] Referring Physician Hematology 12/25/23
--- OUTSIDE RECORDS SUMMARY | 2025-02-11 09:17 | XMS_ITS | Clinical Summary ---
Author Organization [facility] Raheem Gongora Address [address] [place] [address] Care Team Providers Care Mid Level Java Developer Name Role Phone Jhony Robledo MD Primary [...] Take 1,000 mcg by mouth daily. Active gabapentin (NEURONTIN) 300 mg capsule Take 1 Capsule (300 mg) by mouth 2 times daily. 60 Capsule 2 5 Active exemestane (Aromasin) 25 mg tablet Take 1 Tablet (25 mg) by mouth daily after breakfast. 30 Tablet 2 5 Active exemestane (Aromasin) 25 mg tablet Take 1 Tablet (25 mg) by mouth daily after breakfast. 30 Tablet 5 02/06/20 25 Discontinu ed(Reorder ) Active Problems Problem Noted Date Diagnosed Date Encounter for antineoplastic chemotherapy 2024 Nodule of skin of neck 01/17/2025 Malignant neoplasm of breast in female, estrogen receptor positive 01/17/2025 History of invasive ductal carcinoma of breast 0 11/12/2019 Osteoporosis due to aromatase inhibitor 11/12/19 20 Encounters Date Type Department Care Team Description 02/10/2025 Orders Only [facility] Oncology [facility] Hematology [facility] [address] [place] [address] Issa Baird MD Malignant neoplasm of breast in female, estrogen receptor positive, unspecified laterality, unspecified site of breast (Primary Dx) 02/05/2025 Orders Only [facility] Oncology [facility] [address] [place] [address] Issa Baird MD Encounter for antineoplastic chemotherapy (Primary Dx) 02/05/2025 Refill [facility] Oncology and [facility] [address] [place] [address] Issa Baird MD 01/22/2025 External Device Data [facility] ABSTRACTION Provider, Abstract 01/21/2025 External Device Data [facility] ABSTRACTION Provider, Abstract 01/21/2025 External Device Data [facility] ABSTRACTION Provider, Abstract 01/20/2025 Orders Only [facility] Oncology and [facility] [address] [place] [address] Issa Baird MD Malignant neoplasm of breast in female, estrogen receptor positive, unspecified laterality, unspecified site of breast ([facility]) 01/17/2025 8:30 AM CDT Office Visit [facility] Oncology [facility] [address] [place] [address] Mackenzie Robles MD Malignant neoplasm of breast in female, estrogen receptor positive, unspecified laterality, unspecified site of breast (CMS/HCC) (Primary Dx); Nodule of skin of neck; Encounter for antineoplastic chemotherapy; History of invasive ductal carcinoma of breast 01/17/2025 Orders Only [facility] Oncology and Hematology - [place] [address] [place] [address] Issa Baird MD 01/17/[address] [facility] CT Scan [address] [place] [phone] Ruchi Mcneill, RISK OFFICER Follow Up 01/16/2025 7:30 AM CDT - 01/16/2025 11:59 PM CDT Hospital Encounter [facility] Interventional Radiology [facility] [address] [phone] Issa Baird MD Discharge Disposition: Home or Self Care 01/13/2025 Orders Only [facility] Oncology and Hematology - [place] [address] [place] [address] Issa Baird MD 01/06/2025 Orders Only [facility] Oncology and Hematology - [place] [address] [place] [address] Issa Baird MD Malignant neoplasm of breast in female, estrogen receptor positive, unspecified laterality, unspecified site of breast (CMS/HCC) 12/27/2024 8:45 AM CDT Office Visit [facility] Oncology and Hematology - [place] [address] [place] [address] Issa Baird MD Malignant neoplasm of breast in female, estrogen receptor positive, unspecified laterality, unspecified site of breast (CMS/HCC) (Primary Dx) 12/27/2024 Orders Only [facility] Oncology and Hematology - [place] [address] [place] [address] Issa Baird MD 12/24/2024 Orders Only [facility] Oncology and Hematology - [place] [address] [place] [address] Issa Baird MD 12/23/2024 Orders Only [facility] Oncology and Hematology - [place] [address] [place] [id number] Issa Baird MD Malignant neoplasm of breast in female, estrogen receptor positive, unspecified laterality, unspecified site of breast (CMS/HCC) 12/17/2024 Orders Only [facility] Oncology and Hematology - [place] [address] Issa Baird MD 12/13/2024 Orders Only [facility] Oncology and Hematology - [place] [address] Issa Baird MD 12/12/2024 Orders Only [facility] Oncology and Hematology - [place] [address] Issa Baird MD 12/10/2024 External Device Data STL ABSTRACTION Provider, Abstract 12/09/2024 Orders Only [facility] Oncology and Hematology - [place] [address] Issa Baird MD Malignant neoplasm of breast in female, estrogen receptor positive, unspecified laterality, unspecified site of breast (CMS/HCC) 12/06/2024 Orders Only [facility] Oncology and Hematology - [place] [address] [place] [phone] Issa Baird MD 12/03/2024 Orders Only [facility] Oncology and Hematology - [place] [address] [place] [address] Issa Baird MD Malignant neoplasm of breast in female, estrogen receptor positive, unspecified laterality, unspecified site of breast (CMS/HCC) (Primary Dx) 12/02/2024 Orders Only [facility] Oncology and Hematology - [place] [address] Issa Baird MD Encounter for antineoplastic chemotherapy (Primary Dx) 11/29/2024 Orders Only [facility] Oncology [facility] Hematology [facility] [address] [place] [address] Issa Baird MD Nodule of skin of neck (Primary Dx) 11/28/2024 4:30 PM CDT Telephone Check Up [facility] [address] [place] [address] Issa Baird MD Malignant neoplasm of breast in female, estrogen receptor positive, unspecified laterality, unspecified site of breast (CMS/HCC) (Primary Dx); Nodule of skin of neck 11/28/2024 Orders Only [facility] [address] [place] [address] Issa Baird MD Nodule of skin of neck (Primary Dx) 11/25/2024 Orders Only [facility] Oncology [facility] Hematology [facility] [address] [place] [address] Issa Baird MD Malignant neoplasm of breast in female, estrogen receptor positive, unspecified laterality, unspecified site of breast (CMS/HCC) 11/22/2024 Abstract [facility] [address] [place] [address] Issa Baird MD 11/20/2024 External Device Data [facility] ABSTRACTION Provider, Abstract 11/19/2024 External Device Data [facility] ABSTRACTION Provider, Abstract 11/15/2024 8:30 AM CDT Office Visit [facility] Oncology [facility] [address] [place] [address] Issa Baird MD Malignant neoplasm of breast in female, estrogen receptor positive, unspecified laterality, unspecified site of breast (CMS/HCC) (Primary Dx) 11/11/2024 Orders Only [facility] Hematology [facility] [address] [place] [address] Issa Baird MD Malignant neoplasm [...] CDT Gender Identity Female 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 Sexual Orientation Not on file Last Filed Vital Signs Vital Sign Reading Time Taken Comments Blood Pressure 121/70 01/17/2025 8:33 AM CDT Pulse 93 01/17/2025 8:33 AM CDT Temperature 36.3 C (97.3 F) 01/17/2025 8:33 AM CDT Respiratory Rate 15 01/17/2025 8:33 AM CDT Oxygen Saturation 98% 01/17/2025 8:33 AM CDT Inhaled Oxygen Concentration - - Weight 75.8 kg (167 lb 3.2 oz) 01/17/2025 8:33 A M CDT Height 165.1 cm (5' 5) 12/31/2021 8:26 AM CDT Body Mass Index 27.82 12/31/2021 8:26 AM CDT Plan of Treatment Upcoming Encounters Date Type Department Care Team (Late st Contact Info) Description 02/14/2025 8:15 AM CDT Appointment [facility] Nuclear Medicine [address] [place] [address] [id number] Mackenzie Robles MD [address] [place] [address] 02/17/2025 9:30 AM CDT Office Visit [facility] Oncology and Hematology - [place] [address] [place] [address] Issa Baird MD [address] [facility] [employer] [address] [place] [address] Health Maintenance Due Date Last Done [...] 5 years 2020 INFLUENZA VACCINE (#1) 2024 4, 03/11/2021, 03/13/2015, Additional history exists COLORECTAL SCREENING 02/05/2029 02/05/2019, 02/06/20 19 Colorectal Cancer Screening 02/05/2029 Procedures Procedure Name Priority Date/Time Associated Diagnosis Comments BASIC METABOLIC PANEL Routine 01/17/2025 12:24 PM CDT CBC WITH AUTODIFFERENTIAL Routine 01/17/2025 12:17 PM CDT US GUIDE NEEDLE PLACEMENT Routine 01/16/2025 8:33 AM CDT Nodule of skin of neck PATHOLOGY Pathology 01/16/2025 8:30 AM CDT CHG CA 15 3 Routine 01/10/2025 12:54 PM CDT COMPREHENSIVE METABOLIC PANEL Routine 01/10/2025 12:42 PM CDT BASIC METABOLIC PANEL Routine 12/27/2024 11:26 AM CDT CBC WITH AUTODIFFERENTIAL Routine 12/27/2024 11:23 AM CDT CHG CA 15 3 Routine 12/23/2024 12:43 PM CDT ESTRADIOL Routine 12/11/2024 12:21 PM CDT FSH Routine 12/11/2024 8:22 AM CDT ECHO COMPLETE Routine 12/11/2024 8:01 AM CDT BASIC METABOLIC PANEL Routine 12/06/2024 11:42 AM CDT CBC WITH AUTODIFFERENTIAL Routine 12/06/2024 11:37 AM CDT GLUCOSE LEVEL Routine 11/21/2024 5:01 PM CDT PET BONE IMG W CT SKL BSE MID THG Routine 11/21/2024 8:21 AM CDT from Last 3 Months Results * BASIC METABOLIC PANEL (01/17/2025 12:24 PM CDT) Only the most recent of3 resultswithin the time period is included. Blood us Issa Baird MD CHEMISTRY ORDERABLES Final Resu lt * CBC WITH AUTODIFFERENTIAL (01/17/2025 12:17 PM CDT) Only the most recent of3 resultswithin the time period is included. Blood us Issa Baird MD HEMATOLOGY ORDERABLES Final Res ult * US GUIDE NEEDLE PLACEMENT (01/16/2025 8:33 AM CDT) Anatomical Region Laterality Modality Ultrasound 01/16/2025 8:33 AM CDT Impressions 01/16/2025 3:53 PM CDT IMPRESSION: Successful core needle biopsy of subcutaneous soft tissue posterior neck mass using ultrasound guidance. DICTATION LOCATION: Location 1 - [facility] Narrative 01/16/2025 3:53 PM CDT EXAMINATION: CORE NEEDLE BIOPSY OF SOFT TISSUE USING ULTRASOUND GUIDANCE DATE: 01/16/2025 8:33 AM HISTORY: 49 years-old Female with posterior neck mass. ANESTHESIA: The procedure was performed with local anesthesia. SURGEON: PEDRO Hudson TECHNIQUE: The risks, benefits and alternatives were discussed and informed consent was obtained. Prior to beginning the procedure, Phoenix Protocol was performed to confirm the patient's identity and the planned procedure. Sterile barriers including hand hygiene, sterile gloves, and sterile towels were used. 2% chlorhexidine was used for cutaneous antisepsis. The patient was placed in the prone position. The biopsy site was selected and marked on the skin. The skin was infiltrated with 1% lidocaine. An 18-gauge biopsy device was used. Under continuous ultrasound guidance, the biopsy needle was advanced into the subcutaneous neck mass and 2 cm core biopsies obtained and placed in formalin. The specimens were sent to pathology for histologic evaluation. Hemostasis was achieved with manual compression. A sterile dressing was applied. ESTIMATED BLOOD LOSS: None DISCHARGED TO: Home. FINDINGS: Initial images show subcutaneous posterior neck mass. Subsequent images show biopsy needle through the intended target. Post biopsy images show no postprocedure complication. The patient tolerated the procedure without immediate complications. Procedure Note Ramiro Boudreaux MD - 01/16/2025 EXAMINATION: CORE NEEDLE BIOPSY OF SOFT TISSUE USING ULTRASOUND GUIDANCE DATE: 01/16/2025 8:33 AM HISTORY: 49 years-old Female with posterior neck mass. ANESTHESIA: The procedure was performed with local anesthesia. SURGEON: PEDRO Hudson TECHNIQUE: The risks, benefits and alternatives were discussed and informed consent was obtained. Prior to beginning the procedure, Phoenix Protocol was performed to confirm the patient's identity and the planned procedure. Sterile barriers including hand hygiene, sterile gloves, and sterile towels were used. 2% chlorhexidine was used for cutaneous antisepsis. The patient was placed in the prone position. The biopsy site was selected and marked on the skin. The skin was infiltrated with 1% lidocaine. An 18-gauge biopsy device was used. Under continuous ultrasound guidance, the biopsy needle was advanced into the subcutaneous neck mass and 2 cm core biopsies obtained and placed in formalin. The specimens were sent to pathology for histologic evaluation. Hemostasis was achieved with manual compression. A sterile dressing was applied. ESTIMATED BLOOD LOSS: None DISCHARGED TO: Home. FINDINGS: Initial images show subcutaneous posterior neck mass. Subsequent images show biopsy needle through the intended target. Post biopsy images show no postprocedure complication. The patient tolerated the procedure without immediate complications. IMPRESSION: Successful core needle biopsy of subcutaneous soft tissue posterior neck mass using ultrasound guidance. DICTATION LOCATION: Location 1 - [facility] Issa Baird MD US ORDERABLES Final Result * PATHOLOGY (01/16/2025 8:30 AM CDT) CASE REPORT Surgical Pathology Report Case: [id number] Authorizing Provider: Ramiro Boudreaux MD Collected: 01/16/2025 08:30 AM Ordering Location: [facility] Received: 01/16/2025 09:50 AM [facility] Pathologist: Ted Danielle MD Specimen: Other, specify, Neck, mass 9:28 AM T [facility] [employer] [facility] ADDENDUM 1 This addendum is issued to report the results of FISH Analysis HER2 Breast (positive) (see hyperlink below for scan of outside report). 9:28 AM T [facility] [employer] [facility] Addendum electronically signed by Ted Danielle MD on 01/27/2025 at 0928 CDT FINAL DIAGNOSIS Neck mass, biopsy: - Metastatic carcinoma, consistent with breast primary. - ER: 8/8; WV: 0; HER2: 2+ 9:28 AM T [facility] [employer] [facility] at 1008 CDT GROSS DESCRIPTION Received in one container labeled Philip B Wheat and neck mass are 3 white-yellow tissue cores measuring 0.8, 1.3 and 0.9 cm in length and each measuring less than 0.1 cm in diameter. All are submitted in cassettes A1 and A2. [facility] 9:28 AM T [facility] [employer] [facility] MICROSCOPIC DESCRIPTION The slides are labeled [id number] and Philip Landis. Sections show clusters and single tumor cells with high NC ratio, prominent nucleolus, nuclear membrane irregularity and plasmacytoid cytoplasm. Tumor cells are positive for GATA3 and ER, consistent with metastatic carcinoma of breast primary. Patient's clinical history of breast carcinoma is noted. Results of biomarker testing. Diagnosis: Metastatic carcinoma, consistent with breast primary Site: Neck mass Block #: A1 Cold Ischemia Time: Not applicable Duration of Fixation: Not applicable Internal Control: Not applicable Test Results HER2 Protein Overexpression (immunohistochemistry) = 2+ Cases with equivocal staining (2+) will be reflexed to HER2 in situ hybridization testing and the results reported in an addendum. ER Total Score (immunohistochemistry) = 8/8 Proportion Score = 5/5 Intensity Score = 3/3 WV Total Score (immunohistochemistry) = 0 Proportion Score = 0 Intensity Score = 0 HER2 membrane staining (Antibody Clone 4B5) is scored on a 0 to 3+ scale in accordance to 2023 CAP/ASCO guidelines. Estrogen and progesterone receptor content is assayed in a semiquantitative manner utilizing the ER antibody (Clone SP1) and WV antibody (Clone 1E2). Results are reported as a total score (range 0 to 8) which equals the sum of the proportion score (percentage of tumor cells with positive nuclear staining) and the intensity score (average staining intensity of all positive tumor cells). Reference Ranges HER2 score 0 (Negative) = no expression 0+ (Negative) = incomplete, faint membrane staining and within <10% of tumor cells 1+ (Negative) = incomplete, faint membrane staining and within >10% of tumor cells 2+ (Equivocal) = weak/moderate complete membrane staining within >10% of tumor cells. 3+ (Positive) = circumferential membrane staining that is complete and intense ER and WV Total Score 0-2 = negative >= 3 = positive ER and WV Proportion Score (% positive cells) 0 = none 1 = > 0 to < 1% 2 = > or = 1% to 10% 3 = > 10% to 33.3% 4 = > 33.3% to 66.7% 5 = > 66.7% ER and WV Intensity Score (average staining intensity) 0 = none 1 = weak 2 = intermediate 3 = strong * Studies are performed on neutral-buffered formalin-fixed paraffin embedded sections unless otherwise specified. These assays have not been validated on decalcified tissues. Results should be interpreted with caution given the likelihood of false negativity on decalcified tissues. * Patients with breast cancers that are HER2 IHC 3+ or IHC 2+/FLAVIO amplified may be eligible for several therapies that disrupt HER2 signaling pathways. Invasive breast cancers that test 'HER2-negative' (IHC 0, 0+, 1+ or 2+/FLAVIO not-amplified) are more specifically considered 'HER2-negative for protein overexpression/gene amplification' since non-overexpressed levels of the HER2 protein may be present in these cases. Patients with breast cancers that are HER2 IHC 0+, 1+ or IHC 2+ /FLAVIO not-amplified may be eligible for a treatment that targets non-amplified levels of HER2 expression in the metastatic setting. Currently patients with no membrane staining by IHC (0) are ineligible/excluded. H ER2 low is considered IHC Score 1+ or 2+/FLAVIO negative, and H ER2 ultralow is considered HER2 IHC Score of 0 (pattern 0+) with membrane staining that is incomplete and faint/barely perceptible in less than or equal to 10% of tumor cells. * When the ER Proportion Score = 2 the cancer in the sample has a low level (1-10%) of ER expression by IHC and should be reported as L ow Positive . There are limited data on the overall benefit of endocrine therapies for patients with low level (1-10%) ER expression but they currently suggest possible benefit, so patients are considered eligible for endocrine treatment. There are data that suggest invasive cancers with these results are heterogeneous in both behavior and biology and often have gene expression profiles more similar to ER negative cancers. 9:28 AM [facility] CLINICAL INFORMATION No Dx found. 9:28 AM [facility] COMMENT Special stain, immunohistochemical, and/or in situ hybridization results are interpreted with controls that demonstrate appropriate staining reactions. Note on use of immunohistochemistry reagents and in situ hybridization probes: These tests were developed and their performance characteristics determined by [facility], Department of Laboratory Medicine. It has not been cleared or approved by the U.S. Food and Drug Administration. The FDA has determined that such clearance or approval is not necessary. The test is used for clinical purposes. It should not be regarded as investigational or for research. This laboratory is certified to perform high complexity testing. Frozen section/operating room consultation, gross examination and dissection, and case sign out may have been performed in part or completely in the following laboratories: [facility], [place] #[id number] [address] [place] [address] [facility], [place] #[id number] [address] [place] [address] [facility], [place] #[id number] [address] [facility] [address] This report was created with the [employer] voice-activated dictation system. Inherent to this system is the possibility of syntax, grammar, punctuation and other errors that could impact the interpretation of the report. If there are interpretative questions about aspects of this report, please contact the performing pathologist. 9:28 AM [facility] Tissue (Other, specify) Collection / Unknown 01/16/2025 8:30 AM CDT 01/16/2025 9:50 AM CDT Result [facility] Ramiro Boudraeux MD PATHOLOGY/CYTOLOGY ORDERABLES Edited Result - Final [facility] LABORATORY [facility]# [id number] [address] [place], [place] [address] * CHG CA 15 3 (01/10/2025 12:54 PM CDT) Only the most recent of2 resultswithin the time period is included. Result [facility] us Issa Baird MD CHG - LABORATORY Final Result * COMPREHENSIVE METABOLIC PANEL (01/10/2025 12:42 PM CDT) Blood Result [facility] Issa Baird MD CHEMISTRY ORDERABLES Final Resu lt * ESTRADIOL (12/11/2024 12:21 PM CDT) Blood Result [facility] Issa Baird MD CHEMISTRY ORDERABLES Final Resu lt * FSH (12/11/2024 8:22 AM CDT) Blood Result [facility] us Issa Baird MD CHEMISTRY ORDERABLES Final Resu lt * ECHO COMPLETE (12/11/2024 8:01 AM CDT) Result [facility] us Issa Baird MD ECHO ORDERABLES Final Result * GLUCOSE LEVEL (11/21/2024 5:01 PM CDT) Blood us Issa Baird MD CHEMISTRY ORDERABLES Final Resu lt * PET BONE IMG W CT SKB (11/21/2024 8:21 AM CDT) Anatomical Region Laterality Modality Positron Emissio n Tomography (PET) Issa Baird MD PE ORDERABLES Final Result from Last 3 Months Insurance [employer] CHO[employer] Care Teams Mid Level Java Developer Relationship Specialty Start Date End Date Jhony Robledo MD [address] [place] [phone] PCP - General Family Practice 09/19/19
--- OUTSIDE RECORDS SUMMARY | 2025-02-11 09:17 | XMS_ITS | Encounter Summary ---
Author Organization [facility] Address [address] [place] [address] Care Team Providers Care Preschool Head Teacher Name Role Phone Jhony Robledo MD Primary Care Provider Encounter Details Date Type Department Care Team (Late Contact Info) Description 02/10/2025 Orders Only [facility] Oncology and Hematology - [place] [address] [place] [address] Issa Baird MD [address] [facility] [employer] [address] [place] [address] Malignant neoplasm of breast in female, estrogen receptor positive, unspecified laterality, unspecified site of breast (Primary Dx) Social History Tobacco Use Types Packs/Day Years Used Date Smoking Tobacco: Never Smokeless Tobacco: Never Alcohol Use Standard Drinks/Week Comments Yes 0 (1 standard drink = 0.6 oz pur e alcohol) Comments Unknown Sex and Gender Information Value Date Recorded Sex Assigned at Not on file Legal Sex Female 2:51 PM CDT Gender Identity Female 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 Sexual Orientation Not on file documented as of this encounter Plan of Treatment Upcoming Encounters Date Type Department Care Team (Late Contact Info) Description 02/14/2025 8:15 AM CDT Appointment [facility] Nuclear Medicine [address] [place] [address] [id number] Mackenzie Robles MD [address] [place] [address] 02/17/2025 9:30 AM CDT Office Visit [facility] Oncology and Hematology - [place] [address] [facility] [address] [place] [address] Issa Baird MD [address] [facility] [address] [place] [address] Scheduled Orders Name Type Priority Associated Diagnoses Orde r Schedule CBC WITH DIFFERENTIAL Lab Routine Malignant neoplasm of breast in female, estrogen receptor positive, unspecified laterality, unspecified site of breast Every Two Weeks for 99 Occurrences starting 02/10/2025 until 02/10/2026 COMPREHENSIVE METABOLIC PANEL Lab Routine Malignant neoplasm of breast in female, estrogen receptor positive, unspecified laterality, unspecified site of breast Every Two Weeks for 99 Occurrences starting 02/10/2025 until 02/10/2026 BASIC METABOLIC PANEL Lab Routine Malignant neoplasm of breast in female, estrogen receptor positive, unspecified laterality, unspecified site of breast Every Two Weeks for 99 Occurrences starting 02/10/2025 until 02/10/2026 documented as of this encounter Visit Diagnoses Diagnosis Malignant neoplasm of breast in female, estrogen receptor positive, unspecified laterality, unspecified site of breast- Primary documented in this encounter Care Teams Preschool Head Teacher Relationship Specialty Start Date End Date Jhony Robledo MD [address] [place] [address] PCP - General Family Practice 09/19/19 documented as of this encounter
--- OUTSIDE RECORDS SUMMARY | 2025-02-11 09:17 | XMS_ITS | Encounter Summary ---
Author Organization [facility] Address [address] [place] [address] Phone Care Team Providers Care Telecommunications Analyst Name Role Phone Jhony Robledo MD Primary Care Provider [phone] Rebel Shields MD Unavailable Issa Baird MD Unavailable [phone] Encounter Details Date Type Department Care Team (Late st Contact Info) Description 12/25/2023 Telephone [facility] Oncology [address] 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 Gender Identity Not on file Sexual Orientation Not on file documented as of this encounter Plan of Treatment Not on file documented as of this encounter Visit Diagnoses Not on filedocumented in this encounter Care Teams Telecommunications Analyst Relationship Specialty Start Date End Date Jhony Robledo MD [address] [place] [address] PCP - General 12/22/17 Rebel Shields MD [address] [place] [address] Medical Oncologist/Hematologis t Hematology and Oncology 11/04/19 Issa Baird MD [address] [address] Referring Physician Hematology 12/25/23 documented as of this encounter
--- OUTSIDE RECORDS SUMMARY | 2025-02-11 09:17 | XMS_ITS ---
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 Past Treatment and Therapy Plans
--- OUTSIDE RECORDS SUMMARY | 2025-02-11 09:17 | XMS_ITS | Encounter Summary ---
Author Organization [facility] Address [address] [place] [address] Phone Care Team Providers Care Scoop Operator Name Role Phone Oksana Heath MD Primary Care Provider + Jhony Robledo MD Primary Care Provider [phone] Oksana Heath MD Primary Care Provider + Jhony Robledo MD Primary Care Provider Rebel Shields MD Unavailable [phone] Issa Baird MD Unavailable [phone] Encounter Details Date Type Department Care Team (Late st Contact Info) Description 07/07/2017 Orders Only [facility] ProviderBartolo MD [address] [place] [address] Social History Tobacco Use Types Packs/Day Years Used Date Smoking Tobacco: Never Smokeless Tobacco: Never Alcohol Use Standard Drinks/Week Comments Yes 0 (1 standard drink = 0.6 oz pur e alcohol) Comments No Sex and Gender Information Value Date Recorded Sex Assigned at Not on file 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 Gender Identity Not on file Sexual Orientation [...] on filedocumented in this encounter Care Teams Scoop Operator Relationship Specialty Start Date End Date Oksana Heath MD [address] [place] [address] PCP - General 06/16/17 08/24/17 Jhony Robledo MD [address] [place] [address] PCP - General 08/25/17 09/07/17 Oksana Heath MD [address] [place] [address] PCP - General Gynecology 09/08/17 12/21/17 Jhony Robledo MD [address] [place] [address] PCP - General 12/22/17 Rebel Shields MD [address] [place] [address] Medical Oncologist/Hematologis t Hematology and Oncology 11/04/19 Issa Baird MD [address] [place] [address] Referring Physician Hematology 12/25/23 documented as of this encounter
[2025-02-11 09:52] LABS: Cholesterol 271 mg/dL (0-200); HDL Direct 53 mg/dL; Triglycerides 97 mg/dL (<150)
== END 2025-02-11 08:59 | disposition home or self-care (01) ==
LOC: ANHLAB 09:00
PROVIDERS: PCP Family Medicine; Visit Provider Internal Medicine Cardiovascular Disease
DX: I51.9 Heart disease, unspecified (principal)
CPT/HCPCS: 36415; 80061

== ENCOUNTER 2025-03-14 12:21 | Outpatient (CLI) | payer BC, SELFPAY ==
--- NOTE | 2025-03-14 | ECHO_ITS ---
Patient Info Name: Christiane Landis Age: 49 years : 1975 Gender: Female Ht: 66 in Wt: 165 lbs BSA: 1.88 m2 HR: 83 bpm BP: 115 / 70 mmHg Technical Quality: Good Exam Date: 03/14/2025 12:41 PM Patient Status: O Admit Date: 03/14/2025 Exam Type: CA echo doppler color flow Complete two-dimensional, color flow and Doppler transthoracic echocardiogram is performed. Manager Highway: Susi Smyth Attending Provider: Issa Baird MD Summary 1. Complete two-dimensional, color flow and Doppler transthoracic echocardiogram is performed. 2. Left ventricular chamber dimension is normal. 3. Left ventricular systolic function is normal, estimated at 55-60. 4. The left ventricular diastolic function is grade I diastolic dysfunction. 5. E/e' 5 is not elevated. 6. Global longitudinal strain is slightly abnormal at -16.5%. Left Ventricle Global longitudinal strain is slightly abnormal at -16.5%. Left ventricular chamber dimension is normal. Left ventricular systolic function is normal, estimated at 55-60. The left ventricular diastolic function is grade I diastolic dysfunction. E/e' 5 is not elevated. Right Ventricle Right ventricular chamber dimension is normal. Right ventricular systolic function is normal. Left Atria Left atrial chamber dimension is normal. Right Atria Right atrial chamber dimension is normal. Aortic Valve The aortic valve is trileaflet. There is no aortic valve stenosis. There is no aortic valve regurgitation. Pulmonic Valve There is no pulmonic regurgitation. Mitral Valve There is no mitral valve stenosis. There is no mitral valve regurgitation. Tricuspid Valve There is no tricuspid valve regurgitation. Pericardium/Pleural There is no pericardial effusion. Inferior Vena Cava Normal inferior vena cava with >50% collapse upon inspiration consistent with normal right atrial pressure, 5 mmHg. Aorta The aortic root size at the sinus of Valsalva is normal. Left Ventricular Outflow Tract Name Value Normal LVOT 2D LVOT Diameter 2.0 cm LVOT Doppler LVOT Peak Velocity 86 cm/s LVOT Peak Gradient 3 mmHg LVOT Mean Gradient 2 mmHg LVOT VTI 15 cm LVOT VTI/AV VTI Ratio 0.8 LVOT Stroke Volume 51 ml LVOT CO 4.1 l/min LVOT CI 2.2 l/min/m2 Pulmonic Valve Name Value Normal RVOT Doppler RVOT Peak Velocity 60 cm/s RVOT Peak Gradient 1 mmHg PV Doppler PV Peak Velocity 86 cm/s PV Peak Gradient 3 mmHg Mitral Valve Name Value Normal MV Diastolic Function MV E Peak Velocity 51 cm/s MV A Peak Velocity 61 cm/s MV E/A 0.8 MV Decel Time (PW) 201 ms Tricuspid Valve Name Value Normal Estimated PAP/RSVP RA Pressure 5 mmHg <=5 Aorta Name Value Normal Ascending Aorta Ao Root Diameter (MM) 3.2 cm Ao Root Diam Index (MM) 1.7 cm/m2 Aortic Valve Name Value Normal AV Doppler AV Peak Velocity 110 cm/s AV Peak Gradient 5 mmHg AV Mean Gradient 3 mmHg AV VTI 19 cm AV Area (Cont Eq VTI) 2.7 cm2 >=3.0 AV Area (Cont Eq Chandler) 2.6 cm2 AV DI (Chandler) 0.78 AV Regurgitation 2D LVOT Area 3.3 cm2 Ventricles Name Value Normal LV Dimensions 2D/MM IVS Diastolic Thickness (2D) 0.6 cm 0.6-1.0 IVS Diastole Thickness (MM) 0.8 cm 0.6-0.9 LVID Diastole (2D) 4.7 cm 3.8-5.2 LVID Diastole (MM) 4.2 cm 3.8-5.2 LVIW Diastolic Thickness (2D) 0.7 cm 0.6-0.9 LVIW Diastolic Thickness (MM) 0.8 cm 0.6-0.9 LVID Systole (2D) 3.5 cm 2.2-3.5 LVID Systole (MM) 3.1 cm 2.2-3.5 LVOT Diameter 2.0 cm LV Mass (2D Cubed) 98.18 g 67.00-162.00 LV Mass Index (2D Cubed) 52 g/m2 43-95 Relative Wall Thickness (2D) 0.30 <=0.42 LV Mass (MM Cubed) 103.77 g 67.00-162.00 LV Mass Index (MM Cubed) 55 g/m2 43-95 Relative Wall Thickness (MM) 0.37 LV Fractional Shortening/Ejection Fraction 2D/MM LV Fractional Shortening (2D) 26 % 27-45 LV Fractional Shortening (MM) 27 % 27-45 LV EF (MM Teichholz) 53 % LV EF (2D Teichholz) 51 % LV Diastolic Volume (4C MOD) 50 ml LV EF (4C MOD) 51 % LV Diastolic Volume (2C MOD) 63 ml LV EF (2C MOD) 55 % LV Diastolic Volume (BP MOD) 57 ml 46-106 LV Diastolic Volume Index (BP MOD) 30 ml/m2 29-61 LV Systolic Volume (BP MOD) 27 ml 14-42 LV Systolic Volume Index (BP MOD) 14 ml/m2 8-24 LV EF (BP MOD) 52 % 54-74 LV Diastolic Length (4C) 8.5 cm LV Systolic Length (4C) 6.5 cm LV Stroke Volume (4C MOD) 26 ml Atria Name Value Normal LA Dimensions LA Dimension (MM) 2.5 cm 2.7-3.8 LA Volume (4C A-L) 20 ml LA Volume (BP A-L) 31 ml RA Dimensions RA Systolic Major Faber Length (4C) 3.9 cm 2.2-2.8 RA Area (4C) 10.2 cm2 <=18.0 EchoPAC Name Value Normal AutoEF LVCO_BiP_Q (Gsbz3RIO) 3.0 l/min LVEF_BiP_Q (Fdqa2RYF) 55 % LVSV_BiP_Q (Skqu9XTS) 46 ml LVVED_BiP_Q (Uqmk2VPQ) 83 ml LVVES_BiP_Q (Kuek8ATL) 37 ml HR_4Ch_Q (Icam7CXW) 62 bpm LVCO_4Ch_Q (Rbsr8JVY) 2.5 l/min LVEF_4Ch_Q (Nqws0VIJ) 55 % LVLd_4Ch_Q (Bouy5CAF) 7.9 cm LVLs_4Ch_Q (Jltn3HYC) 6.8 cm LVSV_4Ch_Q (Cwen0MPT) 41 ml LVVED_4Ch_Q (Nprz7URX) 75 ml LVVES_4Ch_Q (Dvrs2BLB) 34 ml HR_2Ch_Q (Zcvb7RRK) 70 bpm LVCO_2Ch_Q (Nqzn4XBR) 3.5 l/min LVEF_2Ch_Q (Egpt7LQA) 55 % LVLd_2Ch_Q (Egln6PTB) 8.1 cm LVLs_2Ch_Q (Bxov3WEG) 6.6 cm LVSV_2Ch_Q (Cixl0GQL) 50 ml LVVED_2Ch_Q (Cmsy3NVO) 91 ml LVVES_2Ch_Q (Myja1BTR) 41 ml BENNY LV Apical Anterior Longitudinal Strain (BENNY) -18.2 % LV Apical Anteroseptal Longitudinal Strain (BENNY) -16.2 % LV Apical Inferior Longitudinal Strain (BENNY) -22.8 % LV Apical Lateral Longitudinal Strain (BENNY) -20.3 % LV Apical Posterior Longitudinal Strain (BENNY) -17.4 % LV Apical Septal Longitudinal Strain (BENNY) -19.5 % AV Closure (BENNY) 381 ms LV Basal Anterior Longitudinal Strain (BENNY) -19.1 % LV Basal Anteroseptal Longitudinal Strain (BENNY) -15.0 % LV Basal Inferior Longitudinal Strain (BENNY) -20.4 % LV Basal Anterolateral Longitudinal Strain (BENNY) -10.1 % LV Basal Inferolateral Longitudinal Strain (BENNY) 9.5 % LV Basal Inferoseptal Longitudinal Strain (BENNY) -18.9 % LV Global Longitudinal Strain (2C BENNY) -18.7 % LV Global Longitudinal Strain (4C BENNY) -16.1 % LV Global Longitudinal Strain (APLAX BENNY) -14.9 % LV Global Longitudinal Strain (BENNY) -16.5 % LV Mid Anterior Longitudinal Strain (BENNY) -20.6 % LV Mid Anteroseptal Longitudinal Strain (BENNY) -19.2 % LV Mid Inferior Longitudinal Strain (BENNY) -19.0 % LV Mid Anterolateral Longitudinal Strain (BENNY) -17.0 % LV Mid Inferolateral Longitudinal Strain (BENNY) -19.0 % LV Mid Inferoseptal Longitudinal Strain (BENNY) -18.7 % Report Signatures
--- OUTSIDE RECORDS SUMMARY | 2025-03-14 12:34 | XMS_ITS | Clinical Summary ---
Author Organization [facility] Address [address] [place] [address] Care Team Providers Care Public Relations Representative Name Role Phone Jhony Robledo MD Primary Care Provider [phone] Rebel Shields MD Unavailable [phone] Issa Baird MD Unavailable [phone] Allergies No known active allergies Medications [...] (01/23/2019): Added automatically from request for surgery [id number] Absolute anemia 01/22/2019 Right lower quadrant abdominal [...] (01/05/2018): Added automatically from request for surgery [id number] Hemorrhage of rectum and anus 05/15/2014 Overview [...] on file 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 Procedure Date: 02/05/2019 Procedure: Colonoscopy Indications: Abdominal pain in the right lower quadrant, Anemia Providers: Albert eMza M.D., Reina Schneider CRNA (Anesthesia Staff), Samra [...] for screeningpurposes. Procedure Code(s): --- Professional --- 41114, Colonoscopy, flexible; diagnostic, including collection of specimen(s) [...] Most Recently Relevant to Health Maintenance Insurance [employer] ACCESS CHOICE ANTHEM ACCESS CHOICE Care Teams Public Relations Representative Relationship Specialty Start Date End Date Jhony Robledo MD [address] [place], [place] [address] PCP - General 12/22/17 Rebel Shields MD [address] [place], [place] [address] Medical Oncologist/Hematologis t Hematology and Oncology 11/04/19 Issa Baird MD [address] [address] Referring Physician Hematology 12/25/23
--- OUTSIDE RECORDS SUMMARY | 2025-03-14 12:34 | XMS_ITS | Clinical Summary ---
Author Organization [facility] Raheem Gongora Address [address] [address] Care Team Providers Care Environmental Sampler Name Role Phone Jhony Robledo MD Primary [...] before access. 30 Gram 1 01/16/2024 Active ferrous sulfate 325 mg (65 mg iron) tablet Take 325 mg by mouth daily. Active cyanocobalamin 1,000 mcg Tablet Take 1,000 mcg by mouth daily. Active gabapentin (NEURONTIN) 300 mg capsule Take 1 Capsule (300 mg) by mouth 2 times daily. 60 Capsule 2 12/27/2024 Active exemestane (Aromasin) 25 mg tablet Take 1 Tablet (25 mg) by mouth daily after breakfast. 30 Tablet 2 02/05/2025 Active BIOTIN, BULK, MISC by Misc.(Non-Yaron g; Combo Route) route. Active prochlorperazin e maleate (COMPAZINE) 10 mg tablet Take 1 Tablet (10 mg) by mouth every 6 hours as needed for Nausea/Emesis . 30 Tablet 1 02/17/2025 Active Active Problems Problem Noted Date Diagnosed Date Encounter for antineoplastic chemotherapy 2024 Nodule of skin of neck 01/17/2025 Malignant neoplasm of breast in female, estrogen receptor positive 01/17/2025 History of invasive ductal carcinoma of breast 0 11/12/2019 Osteoporosis due to aromatase inhibitor 11/12/19 20 Encounters Date Type Department Care Team Description 03/11/2025 Orders Only [facility] Oncology and Hematology - [place] [address] [phone] Issa Baird MD 03/10/2025 Orders Only [facility] Oncology and Hematology [facility] Jovan [address] [phone] Issa Baird MD Malignant neoplasm of breast in female, estrogen receptor positive, unspecified laterality, unspecified site of breast (CMS/HCC) 02/28/2025 Orders Only [facility] Oncology and Hematology - [place] [address] [place] [id number] Issa Baird MD 02/24/2025 Orders Only [facility] Oncology and Hematology - [place] [address] [place] [phone] Issa Baird MD Malignant neoplasm of breast in female, estrogen receptor positive, unspecified laterality, unspecified site of breast (CMS/HCC) 02/17/2025 9:30 AM CDT Office Visit [facility] Oncology and Hematology - [place] J[address] [place] [address] Issa Baird MD Malignant neoplasm of breast in female, estrogen receptor positive, unspecified laterality, unspecified site of breast (CMS/HCC) (Primary Dx) 02/17/2025 Orders Only [facility] Oncology and Hematology [facility] J[address] [place] [id number] Issa Baird MD 02/14/2025 7:41 AM CDT - 02/14/2025 11:59 PM CDT Hospital Encounter [facility] Nuclear Medicine [address] [place] [address] [id number] Mackenzie Robles MD Discharge Disposition: Home or Self Care 02/14/2025 Orders Only [facility] Oncology and Hematology - [place] [address] [place] [address] Issa Baird MD 02/11/2025 External Device Data STL ABSTRACTION Provider, Abstract 02/10/2025 Orders Only [facility] Oncology and Hematology - [place] [address] [place] [address] Issa Baird MD Malignant neoplasm of breast in female, estrogen receptor positive, unspecified laterality, unspecified site of breast (CMS/HCC) (Primary Dx) 02/05/2025 Orders Only [facility] Oncology and Hematology - [place] [address] [place] [address] Issa Baird MD Encounter for antineoplastic chemotherapy (Primary Dx) 02/05/2025 Refill [facility] Oncology and Hematology [facility] Jovan [address] [place] [address] Issa Baird MD 01/22/2025 External Device Data STL ABSTRACTION Provider, Abstract 01/21/2025 External Device Data STL ABSTRACTION Provider, Abstract 01/21/2025 External Device Data STL ABSTRACTION Provider, Abstract 01/20/2025 Orders Only [facility] Oncology and Hematology - [place] [address] [place] [address] Issa Baird MD Malignant neoplasm of breast in female, estrogen receptor positive, unspecified laterality, unspecified site of breast (CMS/HCC) 01/17/2025 8:30 AM CDT Office Visit [facility] Oncology and Hematology - [place] J[address] [place] [address] Mackenzie Robles MD Malignant neoplasm of breast in female, estrogen receptor positive, unspecified laterality, unspecified site of breast (CMS/HCC) (Primary Dx); Nodule of skin of neck; Encounter for antineoplastic chemotherapy; History of invasive ductal carcinoma of breast 01/17/2025 Orders Only [facility] Oncology and Hematology - [place] [address] [place] [address] Issa Baird MD 01/17/2025 Telephone [facility] CT Scan [address] [place] [phone] Ruchi Mcneill, BACKER UP Follow Up 01/16/2025 7:30 AM CDT - 01/16/2025 11:59 PM CDT Hospital Encounter [facility] Interventional Radiology [address] [facility] [address] [place] [phone] Issa Baird MD Discharge Disposition: Home or Self Care 01/13/2025 Orders Only [facility] Oncology and Hematology - [place] [address] [place] [address] Issa Baird MD 01/06/2025 Orders Only [facility] Oncology and Hematology [facility] [address] [place] [address] Issa Baird MD Malignant neoplasm of breast in female, estrogen receptor positive, unspecified laterality, unspecified site of breast (CMS/HCC) 12/27/2024 8:45 AM CDT Office Visit [facility] Oncology and Hematology - [place] [address] [place] [address] Issa Baird MD Malignant neoplasm of breast in female, estrogen receptor positive, unspecified laterality, unspecified site of breast (CMS/HCC) (Primary Dx) 12/27/2024 Orders Only [facility] Oncology and Hematology - [place] [address] [place] [address] Issa Baird MD 12/24/2024 Orders Only [facility] Oncology and Hematology - [place] [address] [place] [address] Issa Baird MD 12/23/2024 Orders Only [facility] Oncology and Hematology - [place] [address] [place] [address] Issa Baird MD Malignant neoplasm of breast in female, estrogen receptor positive, unspecified laterality, unspecified site of breast (CMS/HCC) 12/17/2024 Orders Only [facility] Oncology and Hematology - [place] [address] [place] [phone] Issa Baird MD 12/13/2024 Orders Only [facility] Oncology and Hematology - [place] [address] Issa Baird MD 12/12/2024 Orders Only [facility] Oncology and Hematology - [place] [address] [place] [address] Issa Baird MD from Last 3 Months [...] CDT Gender Identity Female 06/13/2024 10:42 AM ACCESS CONTROL SPECIALIST Sexual Orientation Not on file Last Filed Vital Signs Vital Sign Reading Time Taken Comments Blood Pressure 109/74 02/17/2025 9:27 AM CDT Pulse 92 02/17/2025 9:27 AM CDT Temperature 36.3 C (97.4 F) 02/17/2025 9:27 AM CDT Respiratory Rate 16 02/17/2025 9:27 AM CDT Oxygen Saturation 98% 02/17/2025 9:27 AM CDT Inhaled Oxygen Concentration - - Weight 74.9 kg (165 lb 3.2 oz) 02/17/2025 9:27 A M CDT Height 165.1 cm (5' 5) 12/31/2021 8:26 AM CDT Body Mass Index 27.49 12/31/2021 8:26 AM CDT Plan of Treatment Upcoming Encounters Date Type Department Care Team (Late st Contact Info) Description 03/21/2025 8:30 AM ACCESS CONTROL SPECIALIST Office Visit [facility] Oncology and Hematology [facility] [address] [place] [address] Sheri Chavez MD [address] [place] [address] Health Maintenance Due Date Last [...] Flex Sig/CT Colonography Q 5 years 2020 Preventative Visit- Commercial 05/08/2024 INFLUENZA VACCINE (#1) 2024 03/13/2015, 2013 COLORECTAL SCREENING 02/05/2029 02/05/2019, 02/06/20 19 Colorectal Cancer Screening 02/05/2029 Procedures Procedure Name Priority Date/Time Associated Diagnosis Comments COMPREHENSIVE METABOLIC PANEL Routine 03/07/2025 12:39 PM CDT CBC WITH AUTODIFFERENTIAL Routine 02/28/2025 11:59 AM CDT PET TUMOR OR INFECTION IMG W CT SKB MD Routine 02/14/2025 9:28 AM CDT Malignant neoplasm of breast in female, estrogen receptor positive, unspecified laterality, unspecified site of breast (CMS/HCC) Nodule of skin of neck CBC WITH AUTODIFFERENTIAL Routine 02/07/2025 1:24 PM CDT CHG CA 15 3 Routine 02/07/2025 12:45 PM CDT BASIC METABOLIC PANEL Routine 01/17/2025 12:24 PM [...] 15 3 Routine 12/23/2024 12:43 PM CDT from Last 3 Months Results * COMPREHENSIVE METABOLIC PANEL (03/07/2025 12:39 PM CDT) Only the most recent of2 resultswithin the time period is included. Blood Issa Baird MD CHEMISTRY ORDERABLES Final Resu lt * CBC WITH AUTODIFFERENTIAL (02/28/2025 11:59 AM CDT) Only the most recent of4 resultswithin the time period is included. Blood us Issa Baird MD HEMATOLOGY ORDERABLES Final Res ult * PET TUMOR OR INFECTION IMG W CT SKB MDTH (02/14/2025 9:28 AM CDT) Anatomical Region Laterality Modality Positron Emissio n Tomography (PET) 02/14/2025 9:28 AM CDT Impressions 02/14/2025 9:39 AM CDT IMPRESSION: PET CT exam consistent with a near complete response to therapy. Minimal FDG uptake still present within the subcutaneous nodule posterior to the T1 spinous process. Dictated by Dr. Camden Ruiz MD DICTATION LOCATION: 1 Narrative 02/14/2025 9:39 AM CDT PET/CT IMAGING WITH HARDWARE FUSION Subsequent treatment strategy DATE: 02/14/2025 9:28 AM PRIOR EXAM: PET CT exam 11/19/2024. HISTORY: Restaging of stage IV breast cancer (originally diagnosed in 2013) with history of skeletal metastatic disease. Ongoing chemotherapy. PROCEDURE: Radiopharmaceutical: 18-F FDG Injected activity: 6.76 mCi Injection site: Right antecubital vein Uptake time: 45 minutes Blood glucose: 114 mg/dL. CT scan type: Brain through mid-thigh. CT technique: Noncontrast CT for attenuation correction and anatomic localization. Axial, sagittal, coronal and MIP images reviewed. Maximal SUVs have units of MBq/mL. Aortic blood pool: SUVmax: 3.0 Hepatic parenchyma: SUVmax: 3.7 Scan quality: Excellent. FINDINGS: Significant PET/CT findings: Bilateral mastectomies with breast reconstructions. No PET avid sites of adenopathy. 1 cm subcutaneous nodule posterior to the T1 spinous process as an SUV of 2.1 as compared to 1.3 cm with an SUV of 3.9 on the study from November 2024. No pulmonary, hepatic, splenic, peripancreatic or adrenal sites of malignancy identified. Subsequent sclerosis with resolution of FDG avid metastases within T9, T12, L5, the left anterior superior iliac spine and the right iliac ala. No PET evidence for intracranial metastatic disease. Incidental PET/CT findings: Expected patterns of PET activity within brain, heart and excreted by the urinary tract. Right-sided Port-A-Cath with the catheter tip in the right atrium. Minor areas of platelike atelectasis in the right middle lobe and inferior lingula. No coronary artery calcifications. The liver, spleen, pancreas, adrenal glands and kidneys are normal. Minor calcifications of the infrarenal aorta and right common iliac artery. Hysterectomy. Procedure Note Camden Ruiz MD - 02/14/2025 PET/CT IMAGING WITH HARDWARE FUSION Subsequent treatment strategy DATE: 02/14/2025 9:28 AM PRIOR EXAM: PET CT exam 11/19/2024. HISTORY: Restaging of stage IV breast cancer (originally diagnosed in 2013) with history of skeletal metastatic disease. Ongoing chemotherapy. PROCEDURE: Radiopharmaceutical: 18-F FDG Injected activity: 6.76 mCi Injection site: Right antecubital vein Uptake time: 45 minutes Blood glucose: 114 mg/dL. CT scan type: Brain through mid-thigh. CT technique: Noncontrast CT for attenuation correction and anatomic localization. Axial, sagittal, coronal and MIP images reviewed. Maximal SUVs have units of MBq/mL. Aortic blood pool: SUVmax: 3.0 Hepatic parenchyma: SUVmax: 3.7 Scan quality: Excellent. FINDINGS: Significant PET/CT findings: Bilateral mastectomies with breast reconstructions. No PET avid sites of adenopathy. 1 cm subcutaneous nodule posterior to the T1 spinous process as an SUV of 2.1 as compared to 1.3 cm with an SUV of 3.9 on the study from November 2024. No pulmonary, hepatic, splenic, peripancreatic or adrenal sites of malignancy identified. Subsequent sclerosis with resolution of FDG avid metastases within T9, T12, L5, the left anterior superior iliac spine and the right iliac ala. No PET evidence for intracranial metastatic disease. Incidental PET/CT findings: Expected patterns of PET activity within brain, heart and excreted by the urinary tract. Right-sided Port-A-Cath with the catheter tip in the right atrium. Minor areas of platelike atelectasis in the right middle lobe and inferior lingula. No coronary artery calcifications. The liver, spleen, pancreas, adrenal glands and kidneys are normal. Minor calcifications of the infrarenal aorta and right common iliac artery. Hysterectomy. IMPRESSION: PET CT exam consistent with a near complete response to therapy. Minimal FDG uptake still present within the subcutaneous nodule posterior to the T1 spinous process. Dictated by Dr. Camden Ruiz MD DICTATION LOCATION: 1 Mackenzie Robles MD PE ORDERABLES Final Resu lt * CHG CA 15 3 (02/07/2025 12:45 PM CDT) Only the most recent of3 resultswithin the time period is included. Issa Baird MD CHG - LABORATORY Final Result * BASIC METABOLIC PANEL (01/17/2025 12:24 PM CDT) Only the most recent of2 resultswithin the time period is included. Blood us Issa Baird MD CHEMISTRY ORDERABLES Final Resu lt * US GUIDE NEEDLE PLACEMENT (01/16/2025 8:33 AM CDT) Anatomical Region Laterality Modality Ultrasound 01/16/2025 8:33 AM CDT Impressions 01/16/2025 3:53 PM CDT IMPRESSION: Successful core needle biopsy of subcutaneous soft tissue posterior neck mass using ultrasound guidance. DICTATION LOCATION: Location [address] [place] [address] Narrative 01/16/2025 3:53 PM CDT EXAMINATION: CORE NEEDLE BIOPSY OF SOFT TISSUE USING ULTRASOUND GUIDANCE DATE: 01/16/2025 8:33 AM HISTORY: 49 years-old Female with posterior neck mass. ANESTHESIA: The procedure was performed with local anesthesia. SURGEON: PEDRO Hudson TECHNIQUE: The risks, benefits and alternatives were discussed and informed consent was obtained. Prior to beginning the procedure, Concord Protocol was performed to confirm the patient's [...] was obtained. Prior to beginning the procedure, Concord Protocol was performed to confirm the patient's [...] ultrasound guidance. DICTATION LOCATION: Location 1 - [facility] Issa Baird MD ORDERABLES Final Result * PATHOLOGY (01/16/2025 8:30 AM CDT) CASE REPORT Surgical Pathology Report Case: [id number] Authorizing Provider: Ramiro Boudreaux MD Collected: 01/16/2025 08:30 AM Ordering Location: [facility] Received: 01/16/2025 09:50 AM [facility] Pathologist: Ted Danielle MD Specimen: Other, specify, Neck, mass 9:28 AM CDT [facility] [employer] [facility] ADDENDUM 1 This addendum is issued to report the results of FISH Analysis HER2 Breast (positive) (see hyperlink below for scan of outside report). 5 9:28 AM T [facility] Addendum electronically signed by eTd Danielle MD on 01/27/2025 at 0928 CDT FINAL DIAGNOSIS Neck mass, biopsy: - Metastatic carcinoma, consistent with breast primary. - ER: 8/8; OK: 0; HER2: 2+ 5 9:28 AM T [facility] [employer] [facility] at 1008 CDT GROSS DESCRIPTION Received in one container labeled Philip B Wheat and neck mass are 3 white-yellow tissue cores measuring 0.8, 1.3 and 0.9 cm in length and each measuring less than 0.1 cm in diameter. All are submitted in cassettes A1 and A2. [facility] 5 9:28 AM CDT [facility] MICROSCOPIC DESCRIPTION The slides are labeled [id number] and Philip Piña. Sections show clusters and single tumor cells [...] Score = 5/5 Intensity Score = 3/3 OK Total Score (immunohistochemistry) = 0 Proportion Score = 0 Intensity Score = 0 HER2 membrane staining (Antibody Clone 4B5) is scored on a 0 to 3+ scale in accordance to 2023 CAP/ASCO guidelines. Estrogen and progesterone receptor content is assayed in a semiquantitative manner utilizing the ER antibody (Clone SP1) and OK antibody (Clone 1E2). Results are reported as [...] that is complete and intense ER and OK Total Score 0-2 = negative >= 3 = positive ER and OK Proportion Score (% positive cells) 0 = none 1 = > 0 to < 1% 2 = > or = 1% to 10% 3 = > 10% to 33.3% 4 = > 33.3% to 66.7% 5 = > 66.7% ER and OK Intensity Score (average staining intensity) 0 = [...] profiles more similar to ER negative cancers. 5 9:28 AM [facility] [employer] [facility] CLINICAL INFORMATION No Dx found. 5 9:28 AM [facility] [employer] [facility] COMMENT Special stain, immunohistochemical, and/or in situ hybridization results are interpreted with controls that demonstrate appropriate staining reactions. Note on use of immunohistochemistry reagents and in situ hybridization probes: These tests were developed and their performance characteristics determined by [facility], Department of Laboratory Medicine. It has [...] part or completely in the following laboratories: [facility], CLIA #[id number] [address] [place] [address] [facility], CLIA #[id number] [address] [place] [address] [facility], CLIA #[id number] [place] [address] This report was created with the SepSensor voice-activated dictation system. Inherent to this system is the possibility of syntax, grammar, punctuation and other errors that could impact the interpretation of the report. If there are interpretative questions about aspects of this report, please contact the performing pathologist. 9:28 AM CDT [facility] Tissue (Other, specify) Collection / Unknown 01/16/2025 8:30 AM CDT 01/16/2025 9:50 AM CDT Ramiro Boudreaux MD PATHOLOGY/CYTOLOGY ORDERABLES Edited Result - Final [facility] CLIA# [id number] [address] [facility] [place] [address] from Last 3 Months Insurance [facility] BLUE ACCESS CHOICE BLUE ACCESS CHOICE Care Teams Environmental Sampler Relationship Specialty Start Date End Date Jhony Robledo MD [address] [place] [id number] PCP - General Family Practice 09/19/19
--- OUTSIDE RECORDS SUMMARY | 2025-03-14 12:34 | XMS_ITS | Encounter Summary ---
Author Organization [facility] Address [address] [place] [address] Phone Care Team Providers Care Precision Lens Polisher Name Role Phone Jhony Robledo MD Primary Care Provider [phone] Rebel Shields MD Unavailable [phone] Issa Baird MD Unavailable [phone] Encounter Details Date Type Department Care Team (Late st Contact Info) Description 12/25/[address] 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 Gender Identity Not on file Sexual Orientation Not on file documented as of this encounter Plan of Treatment Not on file documented as of this encounter Visit Diagnoses Not on filedocumented in this encounter Care Teams Precision Lens Polisher Relationship Specialty Start Date End Date Jhony Robledo MD [address] [place] [address] PCP - General 12/22/17 Rebel Shields MD [address] [place] [address] Medical Oncologist/Hematologis t Hematology and Oncology 11/04/19 Issa Baird MD [address] [address] Referring Physician Hematology 12/25/23 documented as of this encounter
--- OUTSIDE RECORDS SUMMARY | 2025-03-14 12:34 | XMS_ITS | Encounter Summary ---
Author Organization [facility] Address [address] [place] [address] Phone Care Team Providers Care Home Economics Extension Worker Name Role Phone Oksana Heath MD Primary Care Provider + Jhony Robledo MD Primary Care Provider [phone] Oksana Heath MD Primary Care Provider + Jhony Robledo MD Primary Care Provider [phone] Rebel Shields MD Unavailable [phone] Issa Baird MD Unavailable [phone] Encounter Details Date Type Department Care Team (Late st Contact Info) Description 07/07/2017 Orders Only [facility] ProviderBartolo MD [address] [place] [id number] Social History Tobacco Use Types Packs/Day Years Used Date Smoking Tobacco: Never Smokeless Tobacco: Never Alcohol Use Standard Drinks/Week Comments Yes 0 (1 standard drink = 0.6 oz pur e alcohol) Comments No Sex and Gender Information Value Date Recorded Sex Assigned at Not on file 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 Gender Identity Not on file Sexual Orientation [...] filedocumented in this encounter Care Teams Home Economics Extension Worker Relationship Specialty Start Date End Date Oksana Heath MD [address] [place] [address] PCP - General 06/16/17 08/24/17 Jhony Robledo MD [address] [place] [address] PCP - General 08/25/17 09/07/17 Oksana Heath MD [address] [place] [address] PCP - General Gynecology 09/08/17 12/21/17 Jhony Robledo MD [address] [place] [address] PCP - General 12/22/17 Rebel Shields MD [address] [place] [address] Medical Oncologist/Hematologis t Hematology and Oncology 11/04/19 Issa Baird MD [address] [place] [address] Referring Physician Hematology 12/25/23 documented as of this encounter
--- OUTSIDE RECORDS SUMMARY | 2025-03-14 12:34 | XMS_ITS ---
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 Past Treatment and Therapy Plans
--- OUTSIDE RECORDS SUMMARY | 2025-03-14 12:34 | XMS_ITS | Encounter Summary ---
Author Organization [facility] Address [address] [place] [address] Care Team Providers Care Creative Writing Professor Name Role Phone Jhony Robeldo MD Primary Care Provider Encounter Details Date Type Department Care Team ([facility] Contact Info) Description 03/11/2025 Orders Only [facility] Oncology and Hematology [place] [address] [place] [address] Issa Baird MD [address] [facility] [address] [place] [address] Social History Tobacco Use Types Packs/Day Years Used Date Smoking Tobacco: Never Smokeless Tobacco: Never Alcohol Use Standard Drinks/Week Comments Yes 0 (1 standard drink = 0.6 oz pur e alcohol) Comments Unknown Sex and Gender Information Value Date Recorded Sex Assigned at Not on file Legal Sex Female 2:51 PM CDT Gender Identity Female 06/13/2024 10:42 AM HUMAN RESOURCES COMMUNICATIONS MANAGER Sexual Orientation Not on file documented as of this encounter Plan of Treatment Upcoming Encounters Date Type Department Care Team (Late Contact Info) Description 03/21/2025 8:30 AM HUMAN RESOURCES COMMUNICATIONS MANAGER Office Visit [facility] Oncology and Hematology - [place] [address] [place] [address] Sheri Chavez MD [address] [place] [address] documented as of this encounter Procedures Procedure Name Priority Date/Time Associated Diagnosis Comments COMPREHENSIVE METABOLIC PANEL Routine 03/07/2025 12:39 PM CDT documented in this encounter Results * COMPREHENSIVE METABOLIC PANEL (03/07/2025 12:39 PM CDT) Blood Issa Baird MD CHEMISTRY ORDERABLES Final Resu lt documented in this encounter Visit Diagnoses Not on filedocumented in this encounter Care Teams Creative Writing Professor Relationship Specialty Start Date End Date Jhony Robledo MD [address] [place] [phone] PCP - General Family Practice 09/19/19 documented as of this encounter
--- OUTSIDE RECORDS SUMMARY | 2025-03-14 12:34 | XMS_ITS | Encounter Summary ---
Author Organization [facility] [employer] [facility] Address [address] [place] [address] Care Team Providers Care Skein Drier Name Role Phone Jhony Robledo MD Primary Care Provider Encounter Details Date Type Department Care Team (Late Contact Info) Description 03/10/2025 Orders Only [facility] Oncology and Hematology [place] [address] [place] [address] Issa Baird MD [address] [facility] [employer] [address] [place] [address] Malignant neoplasm of breast in [...] CDT Gender Identity Female 06/13/2024 10:42 AM DIRECTOR OF INDUSTRIAL RELATIONS Sexual Orientation Not on file documented as of this encounter Plan of Treatment Upcoming Encounters Date Type Department Care Team (Late Contact Info) Description 03/21/2025 8:30 AM DIRECTOR OF INDUSTRIAL RELATIONS Office Visit [facility] Oncology and Hematology - [place] [address] [place] [address] Sheri Chavez MD [address] [place] [address] documented as of this encounter Visit Diagnoses Diagnosis Malignant neoplasm of breast in female, estrogen receptor positive, unspecified laterality, unspecified site of breast (CMS/HCC) documented in this encounter Care Teams Skein Drier Relationship Specialty Start Date End Date Jhony Robledo MD [address] [place] [address] PCP - General Family Practice 09/19/19 documented as of this encounter
== END 2025-03-14 12:22 | disposition home or self-care (01) ==
PROVIDERS: PCP Family Medicine; Visit Provider Internal Medicine Hematology & Oncology
DX: Z51.11 Encounter for antineoplastic chemotherapy (principal)
CPT/HCPCS: 93306

== ENCOUNTER 2025-04-18 14:03 | Outpatient (CLI) | payer BC, SELFPAY ==
--- NOTE | ~2025-04-18 | CT_ITS ---
EXAM/PROCEDURE: CT chest abdomen pelvis w con HISTORY: mal lisa of breast in female COMPARISON: June 03, 2024 TECHNIQUE: IV contrast enhanced CT of the chest abdomen and pelvis FINDINGS: Stable appearance of mild chronic compression deformity of T7. In T8, 5 mm sclerotic focus image 73 series 601 may be new. Lungs appear stable with no suspicious nodules or masses. Mediastinal structures also stable with no suspicious lymphadenopathy. Right internal jugular Port-A-Cath tip extends to the cavoatrial junction. No significant pericardial effusion or bulky lymphadenopathy. Surgical changes in the breasts region. No acute or aggressive extrathoracic process seen. In the abdomen and pelvis, solid organs appear stable. No bulky mesenteric or retroperitoneal lymphadenopathy or masses seen. Gallbladder is contracted. No hydroureteronephrosis or AAA. Retrocecal appendix normal in size. Patient status post hysterectomy. Urinary bladder unremarkable. IMPRESSION: 1. 5 mm sclerotic focus in the T10 vertebral body appears new and could represent small area of new bony metastatic disease. Findings previously described at T9 and T12 unchanged. 2. No other evidence of metastatic disease identified. Reviewed, dictated and finalized at location A. Y TESTER IMPRESSION: 1. 5 mm sclerotic focus in the T10 vertebral body appears new and could represe nt small area of new bony metastatic disease. Findings previously described at T9 and T12 unchanged. 2. No other evidence of metastatic disease identified.
== END 2025-04-18 14:04 | disposition home or self-care (01) ==
PROVIDERS: PCP Family Medicine; Referring Provider Internal Medicine Hematology & Oncology; Visit Provider Internal Medicine Hematology & Oncology
DX: C50.919 Malignant neoplasm of unspecified site of unspecified female breast (principal)
CPT/HCPCS: 71260; 74177; Q9967

== ENCOUNTER 2025-04-28 08:25 | Outpatient (CLI) | payer BC, SELFPAY ==
--- NOTE | ~2025-04-28 | NM_ITS ---
EXAMINATION: NM bone scan whole body DATE: 04/28/2025 12:41 INDICATION: Breast cancer TECHNIQUE: 26 mCi Tc-99m MDP was administered intravenously. Delayed whole-body scintigrams were obtained. COMPARISON: 08/19/2024 FINDINGS: No interval change in several foci of abnormal bone uptake including at the right frontal calvarium, right humeral neck right coracoid process, right second and fifth ribs a few foci in the spine and pelvis and in the proximal and mid left femur consistent with metastatic disease. No new foci of abnormal bone uptake. Small focus of soft tissue extravasation at the site of injection at the right antecubital fossa. IMPRESSION: 1. No significant interval change in multiple foci of abnormal bone uptake with no new lesions identified consistent with stable osseous metastatic disease. Reviewed, dictated and finalized at location A. AL TRAINER SUPERVISOR
--- OUTSIDE RECORDS SUMMARY | 2025-04-28 08:44 | XMS_ITS | Clinical Summary ---
Author Organization [facility] Address [address] [place] [address] Care Team Providers Care Bioinformatics Software Engineer Name Role Phone Jhony Robledo MD Primary Care Provider [phone] Rebel Shields MD Unavailable [phone] Issa Baird MD Unavailable [phone] Allergies No known active allergies Medications [...] (01/23/2019): Added automatically from request for surgery [id number] Absolute anemia 01/22/2019 Right lower quadrant abdominal [...] (01/05/2018): Added automatically from request for surgery [id number] Hemorrhage of rectum and anus 05/15/2014 Overview [...] on file 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 Procedure Code(s): --- Professional --- 61345, Colonoscopy, flexible; diagnostic, including collection of specimen(s) by brushing or washing,when performed (separate procedure) Diagnosis Code(s): --- Professional --- R10.31, Right lower quadrant pain D64.9, Anemia, unspecified K57.30, Diverticulosis of large intestine without perforation or abscess without bleeding CPT copyright 2017 [employer]. All rights reserved. The codes documented in this report are preliminary and upon cemetery keeper reviewmay be revised to meet current compliance [...] Most Recently Relevant to Health Maintenance Insurance [employer] ACCESS CHOICE ANTHEM ACCESS CHOICE Care Teams Bioinformatics Software Engineer Relationship Specialty Start Date End Date Jhony Robledo MD [address] [place], [place] [phone] PCP - General 12/22/17 Rebel Shields MD [address] [place], [place] [address] Medical Oncologist/Hematologis t Hematology and Oncology 11/04/19 Issa Baird MD [address] [address] Referring Physician Hematology 12/25/23
--- OUTSIDE RECORDS SUMMARY | 2025-04-28 08:44 | XMS_ITS | Encounter Summary ---
Author Organization [facility] Address [address] [place] [address] Phone Care Team Providers Care Vp Organizational Development Name Role Phone Oksana Heath MD Primary Care Provider + Jhony Robledo MD Primary Care Provider [phone] Oksana Heath MD Primary Care Provider + Jhony Robledo MD Primary Care Provider [phone] Rebel Shields MD Unavailable [phone] Issa Baird MD Unavailable [phone] Encounter Details Date Type Department Care Team (Late st Contact Info) Description 07/07/2017 Orders Only [facility] ProviderBartolo MD [address] [place] [address] Social History Tobacco Use Types Packs/Day Years Used Date Smoking Tobacco: Never Smokeless Tobacco: Never Alcohol Use Standard Drinks/Week Comments Yes 0 (1 standard drink = 0.6 oz pur e alcohol) Comments No Sex and Gender Information Value Date Recorded Sex Assigned at Not on file 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 Gender Identity Not on file Sexual Orientation [...] on filedocumented in this encounter Care Teams Vp Organizational Development Relationship Specialty Start Date End Date Oksana Heath MD [address] [place] [address] PCP - General 06/16/17 08/24/17 Jhony Robledo MD [address] [place] [address] PCP - General 08/25/17 09/07/17 Oksana Heath MD [address] [place] [address] PCP - General Gynecology 09/08/17 12/21/17 Jhony Robledo MD [address] [place] [address] PCP - General 12/22/17 Rebel Shields MD [address] [place] [address] Medical Oncologist/Hematologis t Hematology and Oncology 11/04/19 Issa Baird MD [address] [place] [address] Referring Physician Hematology 12/25/23 documented as of this encounter
--- OUTSIDE RECORDS SUMMARY | 2025-04-28 08:44 | XMS_ITS | Clinical Summary ---
Author Organization [facility] Address [address] [place] [address] Care Team Providers Care Sewage Disposal Engineer Name Role Phone Jhony Robledo MD Primary Care Provider [phone] Allergies No known active allergies Medications calcium carbonate/reva min D3 (CALCIUM 600 + D,3, ORAL) Take by mouth. Active multivitamin (DAILY-TERRY) tablet Take 2 Tablets by mouth. Active meloxicam (MOBIC) 15 mg tablet Take 1 Tablet by mouth daily. 11/21/19 24 Active ondansetron (ZOFRAN ODT) 8 mg Tablet, Rapid Dissolve Dissolve 1 tablet on top of tongue then swallow with saliva every 8 hours as needed for nausea or vomiting 30 Tablet 1 01/16/20 24 Active lidocaine-pril ocaine (EMLA) 2.5-2.5 % Cream Apply a quarter size amount to port site 30 minutes before access. 30 Gram 1 01/16/20 24 Active ferrous sulfate 325 mg (65 mg iron) tablet Take 325 mg by mouth daily. Active cyanocobalamin 1,000 mcg Tablet Take 1,000 mcg by mouth daily. Active gabapentin (NEURONTIN) 300 mg capsule Take 1 Capsule (300 mg) by mouth 2 times daily. 60 Capsule 2 12/28/19 25 Active BIOTIN, BULK, MISC by Misc.(Non-Yaron g; Combo Route) route. Active prochlorperazi ne maleate (COMPAZINE) 10 mg tablet Take 1 Tablet (10 mg) by mouth every 6 hours as needed for Nausea/Emesis . 30 Tablet 1 10/13/20 25 Active exemestane (AROMASIN) 25 mg tablet TAKE 1 TABLET DAILY AFTER BREAKFAST 90 Tablet 3 04/17/20 25 Active exemestane (Aromasin) 25 mg tablet Take 1 Tablet (25 mg) by mouth daily after breakfast. 30 Tablet 2 02/06/20 25 025 Discontinued Active Problems Problem Noted Date Diagnosed Date Encounter for antineoplastic chemotherapy 2024 Nodule of skin of neck 01/17/2025 Malignant neoplasm of breast in female, estrogen receptor positive 01/17/2025 History of invasive ductal carcinoma of breast 0 11/12/2019 Osteoporosis due to aromatase inhibitor 11/12/19 20 Encounters Date Type Department Care Team Description 04/22/2025 External Device Data STL ABSTRACTION Provider, Abstract 04/21/[address] [facility] Oncology and Hematology [facility] [address] [place] [phone] Issa Baird MD Malignant neoplasm of breast in female, estrogen receptor positive, unspecified laterality, unspecified site of breast ([facility]/HCC) 04/17/[address] [facility] Oncology and Hematology [facility] [address] [place] [address] Issa Baird MD 04/15/[address] [facility] Oncology and Hematology [facility] [address] [place] [address] Issa Baird MD 04/08/2025 External Device Data STL ABSTRACTION Provider, Abstract 04/07/[address] [facility] Oncology and Hematology [facility] [address] [place] [address] Issa Baird MD Malignant neoplasm of breast in female, estrogen receptor positive, unspecified laterality, unspecified site of breast ([facility]/HCC) 04/01/2025 External Device Data STL ABSTRACTION Provider, Abstract 03/27/[address] [facility] Hematology [facility] [address] [place] [address] Sheri Chavez MD elevated tumor marker 03/25/2025 External Device Data STL ABSTRACTION Provider, Abstract 03/24/2025 Orders Only [facility] Oncology and Hematology - [place] [address] Issa Baird MD Malignant neoplasm of breast in female, estrogen receptor positive, unspecified laterality, unspecified site of breast (CMS/HCC) 03/21/2025 8:30 AM MAGAZINE WORKER Office Visit [facility] Oncology and Hematology - [place] [address] Sheri Chavez MD Malignant neoplasm of breast in female, estrogen receptor positive, unspecified laterality, unspecified site of breast (CMS/HCC) (Primary Dx); Encounter for antineoplastic chemotherapy 03/21/[address] [facility] Oncology and Hematology - [place] [address] Issa Baird MD 03/17/2025 Orders Only [facility] Oncology and Hematology - [place] [address] [place] [phone] Issa Baird MD 03/11/2025 Orders Only [facility] Oncology and Hematology - [place] [address] [place] [address] Issa Baird MD 03/10/2025 Orders Only [facility] Oncology and Hematology - [place] [address] [place] [address] Issa Baird MD Malignant neoplasm of breast in female, estrogen receptor positive, unspecified laterality, unspecified site of breast (CMS/HCC) 02/28/[address] [facility] Oncology and Hematology - [place] [address] [place] [address] Issa Baird MD 02/24/2025 Orders Only [facility] Oncology and Hematology - [place] [address] [place] [address] Issa Baird MD Malignant neoplasm of breast in female, estrogen receptor positive, unspecified laterality, unspecified site of breast (CMS/HCC) 02/17/2025 9:30 AM CDT Office Visit [facility] Oncology and Hematology - [place] [address] [place] [address] Issa Baird MD Malignant neoplasm of breast in female, estrogen receptor positive, unspecified laterality, unspecified site of breast (CMS/HCC) (Primary Dx) 02/17/[address] [facility] Oncology and Hematology [facility] [address] [place] [address] Issa Baird MD 02/14/2025 7:41 AM CDT - 02/14/2025 11:59 PM CDT Hospital Encounter [facility] Nuclear Medicine [address] [place] [address] [id number] Mackenzie Robles MD Discharge Disposition: Home or Self Care 02/14/[address] [facility] Oncology and Hematology [facility] [address] [place] [address] Issa Baird MD 02/11/2025 External Device Data STL ABSTRACTION Provider, Abstract 02/10/[address] [facility] Oncology and Hematology - [place] [address] [place] [address] Issa Baird MD Malignant neoplasm of breast in female, estrogen receptor positive, unspecified laterality, unspecified site of breast (CMS/HCC) (Primary Dx) 02/05/[address] [facility] Oncology and Hematology [facility] [address] [place] [address] Issa Baird MD Encounter for antineoplastic chemotherapy (Primary Dx) 02/05/[address] [facility] Oncology and Hematology [facility] [address] [place] [address] Issa Baird MD from Last 3 Months [...] CDT Gender Identity Female 06/13/2024 10:42 AM MAGAZINE WORKER Sexual Orientation Not on file Last Filed Vital Signs Vital Sign Reading Time Taken Comments Blood Pressure 130/74 03/21/2025 8:41 AM MAGAZINE WORKER Pulse 93 03/21/2025 8:41 AM MAGAZINE WORKER Temperature 36.6 C (97.8 F) 03/21/2025 8:41 AM MAGAZINE WORKER Respiratory Rate 15 03/21/2025 8:41 AM MAGAZINE WORKER Oxygen Saturation 97% 03/21/2025 8:41 AM MAGAZINE WORKER Inhaled Oxygen Concentration - - Weight 75.4 kg (166 lb 3.2 oz) 03/21/2025 8:41 A M MAGAZINE WORKER Height 165.1 cm (5' 5) 12/31/2021 8:26 AM CDT Body Mass Index 27.66 12/31/2021 8:26 AM CDT Plan of Treatment Upcoming Encounters Date Type Department Care Team (Late st Contact Info) Description 05/07/2025 8:30 AM MAGAZINE WORKER Office Visit [facility] Oncology and Hematology - [place] [address] [place] [phone] Elisa Mak MD [address] [place] [address] Health Maintenance Due Date Last Done Comments [...] 2020 INFLUENZA VACCINE (#1) 2024 03/13/2015, 2013 ZOSTER VACCINE (1 of 2) 2025 COLORECTAL SCREENING 02/05/2029 02/05/2019, 02/06/20 Colorectal Cancer Screening 02/05/2029 Procedures Procedure Name Priority Date/Time Associated Diagnosis Comments CT CHEST ABDOMEN PELVIS W CONT Routine 04/18/2025 10:45 AM MAGAZINE WORKER CBC WITH AUTODIFFERENTIAL Routine 04/11/2025 7:55 AM MAGAZINE WORKER CBC WITH AUTODIFFERENTIAL Routine 03/21/2025 12:27 PM MAGAZINE WORKER CHG CA 15 3 Routine 03/21/2025 11:46 AM MAGAZINE WORKER ECHO COMPLETE Routine 03/14/2025 12:32 PM MAGAZINE WORKER COMPREHENSIVE METABOLIC PANEL Routine 03/07/2025 12:39 PM CDT CBC WITH AUTODIFFERENTIAL Routine 02/28/2025 11:59 AM CDT PET TUMOR OR INFECTION IMG W CT SKB MDTH Routine 02/14/2025 9:28 AM CDT Malignant neoplasm of breast in female, estrogen receptor positive, unspecified laterality, unspecified site of breast (CMS/HCC) Nodule of skin of neck CBC WITH AUTODIFFERENTIAL Routine 02/07/2025 1:24 PM CDT CHG CA 15 3 Routine 02/07/2025 12:45 PM CDT from Last 3 Months Results * CT CHEST ABDOMEN PELVIS W CONT (04/18/2025 10:45 AM MAGAZINE WORKER) Anatomical Region Laterality Modality Chest Computed Tomogra phy us Issa Baird MD CT ORDERABLES Final Result * CBC WITH AUTODIFFERENTIAL (04/11/2025 7:55 AM MAGAZINE WORKER) Only the most recent of4 resultswithin the time period is included. Blood us Issa Baird MD HEMATOLOGY ORDERABLES Final Res ult * CHG CA 15 3 (03/21/2025 11:46 AM MAGAZINE WORKER) Only the most recent of2 resultswithin the time period is included. us Issa Baird MD CHG - LABORATORY Final Result * ECHO COMPLETE (03/14/2025 12:32 PM MAGAZINE WORKER) us Issa Baird MD ECHO ORDERABLES Final Result * COMPREHENSIVE METABOLIC PANEL (03/07/2025 12:39 PM CDT) Blood us Issa Baird MD CHEMISTRY ORDERABLES Final Resu lt * PET TUMOR OR INFECTION IMG W [...] Dr. Camden Ruiz MD DICTATION LOCATION: 1 us Mackenzie Robles MD PE ORDERABLES Final Resu lt from Last 3 Months Insurance [employer] Care Teams Sewage Disposal Engineer Relationship Specialty Start Date End Date Jhony Robledo MD [address] [place] [phone] PCP - General Family Practice 09/19/19
--- OUTSIDE RECORDS SUMMARY | 2025-04-28 08:44 | XMS_ITS ---
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 Past Treatment and Therapy Plans
--- OUTSIDE RECORDS SUMMARY | 2025-04-28 08:44 | XMS_ITS | Encounter Summary ---
Author Organization [facility] Address [address] [place] [address] Phone Care Team Providers Care Hiv Counselor Name Role Phone Jhony Robledo MD Primary Care Provider [phone] Rebel Shields MD Unavailable [phone] Issa Baird MD Unavailable [phone] Encounter Details Date Type Department Care Team (Late st Contact Info) Description 12/25/2023 Telephone [facility] [address] 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 Gender Identity Not on file Sexual Orientation Not on file documented as of this encounter Plan of Treatment Not on file documented as of this encounter Visit Diagnoses Not on filedocumented in this encounter Care Teams Hiv Counselor Relationship Specialty Start Date End Date Jhony Robledo MD [address] [place] [address] PCP - General 12/22/17 Rebel Shields MD [address] [place] [address] Medical Oncologist/Hematologis t Hematology and Oncology 11/04/19 Issa Baird MD [address] [address] Referring Physician Hematology 12/25/23 documented as of this encounter
== END 2025-04-28 08:26 | disposition home or self-care (01) ==
PROVIDERS: PCP Family Medicine; Visit Provider Internal Medicine Hematology & Oncology
DX: M89.9 Disorder of bone, unspecified (principal)
CPT/HCPCS: 78306; A9503